=== PATIENT | female | born 1945 | race Caucasian/White ===

== ENCOUNTER 2018-04-07 14:26 | Inpatient (IN) | payer MEDICARE ==
--- NOTE | 2018-04-07 14:59 | ED ---
Neurological HPI - HPI Summary HPI Summary: This patient is a 72 year old female presenting to [facility] accompanied by her son c/o AMS for the last day and a half. The patient was at her PCPs office today when the physician noticed she was repetitive she suggested she come to the ED. Pt states she fell on December and hit her head, she had a negative work up directly after this. When she is asked what her sx are she is unsure even after extensive questioning. When asked the president she is unsure, when asked the month she states the president, although the patient is oriented to herself. Her son who is with her states she has been repeating herself intermittently since yesterday. - History of Current Complaint Chief Complaint: EDAltMentalStatus Stated Complaint: DIZZINESS/CONFUSION Time Seen by Provider: 04/07/18 14:44 Hx Obtained From: Patient, Family/Solution Design And Analysis Manager Onset/Duration: Started days ago - 1, Still Present Timing: Constant Onset Severity: Moderate Current Severity: Moderate Pain Intensity: 0 Pain Scale Used: 0-10 Numeric Syncope Context: Loss of Consciousness: No Associated Signs and Symptoms: Positive: Negative - fever - Allergy/Home Medications Allergies/Adverse Reactions: Allergies Allergy/AdvReac Type Severity Reaction Status Date / Time paroxetine [From Paxil] Allergy Unknown Verified 04/07/18 14:30 Reaction Details Home Medications: Home Medications Albuterol HFA INHALER* [Ventolin HFA Inhaler*] 2 puff INH Q4H PRN 04/07/18 [ History Confirmed 04/07/18] Atorvastatin* [Lipitor*] 20 mg PO BEDTIME 04/07/18 [History Confirmed 04/07/18] Budesonide/Formote 80/4.5(NF) [Symbicort 80/4.5 (NF)] 2 puff INH BID 04/07/18 [ History Confirmed 04/07/18] Ibuprofen TAB* [Advil TAB*] 200 mg PO Q6H PRN 04/07/18 [History Confirmed ] Insulin Glargine,Hum.rec.anlog [Lantus Solostar] 15 units SUBCUT DAILY 04/07/18 [History Confirmed 04/07/18] Ondansetron TAB* [Zofran 4 MG Tab*] 4 - 8 mg PO BID PRN 04/07/18 [History Confirmed 04/07/18] diPHENhydraMINE PO* [Benadryl PO 25 MG TAB*] 25 mg PO BEDTIME 04/07/18 [History Confirmed 04/07/18] metFORMIN* [Glucophage 500 MG TAB *] 1,000 mg PO QAM 04/07/18 [History Confirmed 04/07/18] metFORMIN* [Glucophage 500 MG TAB *] 500 mg PO QPM 04/07/18 [History Confirmed 04/07/18] PMH/Surg Hx/FS Hx/Imm Hx Infectious Disease History: No Infectious Disease History: Denies: Traveled Outside the [place] in Last 30 Days Review of Systems Negative: Fever Neurological: Other - AMS and repeating words All Other Systems Reviewed And Are Negative: Yes Physical Exam - Summary Physical Exam Summary: VITAL SIGNS: Reviewed. GENERAL: Patient is a well-developed and nourished FEMALE who is lying comfortable in the stretcher. Patient is not in any acute respiratory distress. HEAD AND FACE: No signs of trauma. No ecchymosis, hematomas or skull depressions. No sinus tenderness. EYES: PERRLA, EOMI x 2, No injected conjunctiva, no nystagmus. No photophobia. EARS: Hearing grossly intact. Ear canals and tympanic membranes are within normal limits. MOUTH: Oropharynx within normal limits. NECK: Supple, trachea is midline, no adenopathy, no JVD, no carotid bruit, no c- spine tenderness, neck with full ROM. No meningeal signs, no Kernig's or brudzinskis signs. CHEST: Symmetric, no tenderness at palpation LUNGS: Clear to auscultation bilaterally. No wheezing or crackles. CVS: Regular rate and rhythm, S1 and S2 present, no murmurs or gallops appreciated. ABDOMEN: Soft, non-tender. No signs of distention. No rebound no guarding, and no masses palpated. Bowel sounds are normal. EXTREMITIES: FROM in all major joints, no edema, no cyanosis or clubbing. NEURO: Alert abut not oriented. No acute neurological deficits. Speech is normal and follows commands. SKIN: Dry and warm Triage Information Reviewed: Yes Vital Signs On Initial Exam: Initial Vitals Temp Pulse Resp BP Pulse Ox 97.9 F 71 16 161/84 97 04/07/18 14:29 04/07/18 14:29 04/07/18 14:29 04/07/18 14:29 04/07/18 14:29 Vital Signs Reviewed: Yes - Nelia Coma Scale Best Eye Response: 4 - Spontaneous Best Motor Response: 6 - Obeys Commands Best Verbal Response: 5 - Oriented Coma Scale Total: 15 Diagnostics - Vital Signs Vital Signs Temp Pulse Resp BP Pulse Ox 04/07/18 14:29 97.9 F 71 16 161/84 97 - Laboratory Result Diagrams: 04/08/18 06:40 04/08/18 06:40 Lab Statement: Any lab studies that have been ordered have been reviewed, and results considered in the medical decision making process. - CT CT Head CT Interpretation Completed By: Radiologist Summary of CT Findings: , Large left-sided chronic subdural hematoma with superimposed acute component. Findings discussed with Dr. Leon at 1512 hours. ED physician has reviewed this report. CT C spine CT Interpretation Completed By: Radiologist Summary of CT Findings: No fracture of the cervical spine is noted. There is degenerative disc disease at C4-C5, C5-C6 and C6-C7. . Dr Leon has reviewed this report. - EKG 1550 Cardiac Rate: NL EKG Rhythm: Sinus Rhythm - at 70 BPM Summary of EKG Findings: no st elevations NIH Scale - NIH Scale Level of Consciousness: Alert/Keenly Responsive Ask Patient the Month and His/Her Age: One Correct/Not Aphasic Ask Pt to Open/Close Eyes and Telesales Supervisor/Release Non-Paretic Hand: Both Correctly Best Gaze (Only Horizontal Eye Movement): Normal Visual Field Testing: No Visual Loss Facial Paresis-Pt to Smile & Close Eyes or Grimace Symmetry: Normal/Symmetrical Motor Function - Right Arm: No Drift-Holds 10 Seconds Motor Function - Left Arm: No Drift-Holds 10 Seconds Motor Function - Right Leg: No Drift-Holds 10 Seconds Motor Function - Left Leg: No Drift-Holds 10 Seconds Limb Ataxia-Must be out of Proportion to Weakness Present: Absent Sensory (Use Pinprick to Test Arms/Legs/Trunk/Face): Normal Best Language (Describe Picture, Name Items): No Aphasia Dysarthria (Read Several Words): Normal Extinction and Inattention: No Abnormality Total Score: 1 Course/Dx - Course Assessment/Plan: Test results without any significant abnormality except for glucose of 213. Head CT impression: Large left-sided chronic subdural hematoma with superimposed acute component. C-spine CT impression: No fracture of the cervical spine is noted. There is degenerative disc disease and C4-C5, C5-C6, and C6-C7. At this point the patient was given IV fluids and she was given Keppra for prevention of seizures. I discussed my physical exam and findings with Dr. Herrera from neurosurgery who came and examined the patient. After his assessment he will be taking the patient to the OR for decompression. At this point the patient is hemodynamically stable alert and oriented 3. - Diagnoses Provider Diagnoses: Hemorrhagic cerebrovascular accident (CVA) - Physician Notifications Discussed Care Of Patient With: Melia Vee Time Discussed With Above Provider: 15:16 Instructed by Provider To: Admit As Inpatient - 1516 I discussed patient care with Serena OVERHEAD GARAGE DOOR HANGER working with Dr Vee and she will come see the patient. 1531 Dr Vee and Serena are at beside. 1623: They will admit the patient. - Critical Care Time Critical Care Time: 30-74 min Discharge - Sign-Out/Discharge Documenting (check all that apply): Patient Departure - admitted All imaging exams completed and their final reports reviewed: Yes Patient Received Moderate/Deep Sedation with Procedure: No - Discharge Plan Condition: Fair Disposition: ADMITTED TO [facility] - Billing Disposition and Condition Condition: FAIR Disposition: Admitted to [facility] - Attestation Statements Document Initiated by Madiha: Yes Documenting Scribe: Flaco Hatfield Provider For Whom Madiha is Documenting (Include Credential): Miguel Leon MD Scribe Attestation: IFlaco , scribed for Miguel Leon MD on 04/08/18 at 2053. Scribe Documentation Reviewed: Yes Provider Attestation: The documentation as recorded by the Flaco quinones accurately reflects the service I personally performed and the decisions made by me, Miguel Leon MD Status of Scribe Document: Viewed
--- OUTSIDE RECORDS SUMMARY | 2018-04-07 15:00 | XMS REPORT ---
:1945 Author Organization [facility] Dental Care Team Providers Name Role Phone Caitlyn Chino Unavailable Unavailable PROBLEMS Unknown Problems ALLERGIES No Known Allergies ENCOUNTERS Encounter Location Date Diagnosis [place] [address] [place] [address] Aug, [address] [address] Mar, [address] [address] 17 Mar, 2018 [place] [address] [address] 16 Aug, [address] [address] 16 Aug, [address] [address] Jul, [address] 04 Jul, 2017 [address] [address] 15 Mar, [address] [address] 15 Mar, [address] [address] Aug, [address] [address] Aug, [address] [address] Mar, [place] [address] [address] Mar, [address] [address] Aug, [address] [address] Aug, IMMUNIZATIONS No Known Immunizations SOCIAL HISTORY Never Assessed REASON FOR REFERRAL FUNCTIONAL STATUS PLAN OF CARE Activity Details Follow Up 6 Months Reason: VITAL SIGNS MEDICATIONS Medication Instructions Dosage Frequency Start Date End Date Duration Status Lipitor Active Metformin HCl Active Symbicort Active Lantus Active PROCEDURES Procedure Date Ordered Result Body Site BITEWINGS - FOUR FILMS Mar 17, 2018 PROPHYLAXIS - ADULT 13yrs and older Mar 17, 2018 Caries Risk Assess and Doc Low Risk Mar 17, 2018 RESULTS No Results REASON FOR VISIT cleaning Insurance Providers [facility] Member Patient Patient Patient Patient Patient Subscriber Subscriber Subscriber Group Insurance Plan Plan Plan Plan ID Relationship Address Phone Name Date of ID Name Date of No Type Insurance Insurance Insurance Coverage to Subscriber Address Phone Name Dates [employer] [phone] [employer] self Richelle [id number] [id number] [place] [address] [employer] [phone] [employer] self Richelle [id number] [employer] [place] [address] [place] [address] Dental Par MEDICAL (GENERAL) HISTORY Type Description Date Medical History diabetes mallitus Medical History asthma Medical History high cholesterol
--- OUTSIDE RECORDS SUMMARY | 2018-04-07 15:00 | XMS REPORT ---
:1945 Author Organization [facility] Care Team Providers Name Role Phone Brodie Reddy Unavailable Unavailable PROBLEMS Unknown Problems ALLERGIES No Information ENCOUNTERS Encounter Location Date Diagnosis [place] [address] [address] [facility] [place] [address] Aug, [place] [address] [address] Mar, [address] [address] 17 Mar, [address] [address] [place] [address] 16 Aug, [address] [place] [address] [address] 16 Aug, [address] [address] 18 Jul, [address] 04 Jul, 2017 [address] [address] 15 Mar, [address] [address] 15 Mar, [address] [address] 13 Aug, [address] [address] Aug, [address] [address] Mar, [place] [address] [address] 09 Mar, [address] [address] Aug, [address] [address] Aug, IMMUNIZATIONS No Known Immunizations SOCIAL HISTORY Never Assessed REASON FOR REFERRAL FUNCTIONAL STATUS PLAN OF CARE VITAL SIGNS MEDICATIONS Medication Instructions Dosage Frequency Start Date End Date Duration Status Lantus Active Metformin HCl Active Symbicort Active PROCEDURES Procedure Date Ordered Result Body Site PERIODIC ORAL EXAMINATION Mar 17, 2018 RESULTS No Results REASON FOR VISIT Insurance Providers [facility] Member Patient Patient Patient Patient Patient Subscriber Subscriber Subscriber Group Insurance Plan Plan Plan Plan ID Relationship Address Phone Name Date of ID Name Date of No Type Insurance Insurance Insurance Coverage to Subscriber Address Phone Name Dates [employer] [phone] [employer] self Richelle [id number] [id number] [place] [address] [employer] [phone] [employer] self Richelle [id number] [employer] [place] [address] [place] [address] Dental Par MEDICAL (GENERAL) HISTORY Type Description Date Medical History diabetes mallitus Medical History asthma Medical History high cholesterol
[2018-04-07] MEDS ORDERED: Lidocaine 1% MPF wEPI 200,000* 30 ML SDV ONE (15:53)
[2018-04-07] MEDS ORDERED: Mannitol 25% (12.5 GM) 50 ML* 12.5 GM/50 ML VIAL ONE (15:54)
[2018-04-07] MEDS ORDERED: Thrombin 5,000 UNITS* 1 APPLIC KIT - topical use - TOPICAL ONE (15:54)
[2018-04-07] MEDS ORDERED: Gelfoam Sponge SIZE 100* SPONGE ONE (15:55)
[2018-04-07] MEDS ORDERED: Bacitracin INJECTION* 50,000 UNITS ONE ×2 (15:55→19:10)
[2018-04-07 16:03] LABS: ABS Basophils 0 10^3/ul (0-0.2); ABS Eosinophils 0.4 10^3/ul (0-0.6); ABS Lymphocytes 1.5 10^3/ul (1.0-4.8); ABS Monocytes 0.3 10^3/ul (0-0.8); ABS Nucleated RBC 0 10^3/ul; Eosinophil % 5.9 %; Hematocrit 40 % (35-47); Hemoglobin 13.3 g/dl (12.0-16.0); Mean Corpuscular HGB Conc 34 g/dl (31-36); Mean Corpuscular Hemoglobin 30 pg (27-31); Mean Corpuscular Volume 89 fL (80-97); Mean Platelet Volume 8.3 fL (7.4-10.4); Nucleated Red Blood Cells % 0.1; Platelet Count 235 10^3/ul (150-450); Red Blood Count 4.47 10^6/ul (4.00-5.40); Red Cell Distribution Width 13 % (10.5-15); White Blood Count 6.3 10^3/ul (3.5-10.8)
[2018-04-07] MEDS ORDERED: fentaNYL* 50 MCG/ML 5 ML VIAL (250 MCG VIAL) ONE (16:04)
[2018-04-07 16:11] LABS: Activated Partial Thrombo Time 28.1 seconds (26.0-36.3); INR 0.98 (0.77-1.02)
[2018-04-07] MEDS ORDERED: EPHEDrine (Pressors)* 50 MG/ML VIAL ONE (16:27)
[2018-04-07] MEDS ORDERED: Phenylephrine 10 MG/ML VIAL* 1 ML VIAL ONE (16:27)
[2018-04-07 16:36] LABS: ALT 13 U/L (7-52); AST 18 U/L (13-39); Albumin 4.4 g/dL (3.2-5.2); Alkaline Phosphatase 88 U/L (34-104); Anion Gap 9 mmol/L (2-11); BUN/Creatinine Ratio 20.5 (8-20); Blood Urea Nitrogen 15 mg/dL (6-24); CO2 Carbon Dioxide 26 mmol/L (22-32); Calcium 9.5 mg/dL (8.6-10.3); Chloride 100 mmol/L (101-111); Cholesterol 138 mg/dL; EGFR African American 95.4 (>60); EGFR Non-African American 78.8 (>60); Globulin 2.2 g/dL (2-4); Glucose 213 mg/dL (70-100); HDL Cholesterol 59.1 mg/dL; LDL Cholesterol 64 mg/dL; Potassium 4.1 mmol/L (3.5-5.0); Sodium 135 mmol/L (135-145); Total Protein 6.6 g/dL (6.4-8.9); Triglycerides 73 mg/dL
[2018-04-07] MEDS: levETIRAcetam IV* 1,000 MG in NS 0.9% 100 ML* 100 ML IVPB SCH ×2 (16:41→16:52)
[2018-04-07] MEDS ORDERED: Sodium Citrate/Citric Acid* 15 ML UDC ONE (16:43)
[2018-04-07 16:50] LABS: Alcohol < 10 mg/dL (<10)
[2018-04-07] MEDS ORDERED: ceFAZolin 2 GM PREMIX in ORs 2 GM/50 ML BAG IVPB ONE (16:54)
[2018-04-07] MEDS ORDERED: Rocuronium* 10 MG/ML VIAL ONE (17:40)
[2018-04-07] MEDS ORDERED: Succinylcholine* 20 MG/ML 10 ML VIAL ONE (17:58)
[2018-04-07] MEDS ORDERED: Esmolol* 10 MG/ML 10 ML (100 mg) ONE (17:58)
[2018-04-07] MEDS ORDERED: Propofol* 10 MG/ML 20 ML BTL ONE (17:58)
[2018-04-07] MEDS ORDERED: Lidocaine 2% PF * 5 ML VIAL ONE (17:59)
[2018-04-07] MEDS ORDERED: fentaNYL* 50 MCG/ML 2 ML VIAL (100 MCG VIAL) ONE ×3 (18:12→20:39)
[2018-04-07] MEDS ORDERED: Metoprolol Tartrate IV* 1 MG/ML 5 ML VIAL ONE (18:14)
[2018-04-07] MEDS ORDERED: Midazolam* 1 MG/ML 5 ML VIAL (5 MG) ONE (19:30)
--- NOTE | 2018-04-07 20:09 | CONS ---
CONSULTATION NOTE: DATE OF CONSULT: 04/07/18 HISTORY OF PRESENT ILLNESS: The patient is a very pleasant 72-year-old right- handed female with history of diabetes, who was seen in the emergency room for altered mental status for the last 1-1/2 days. The patient was seen at her PCPs office and because of altered mental status, she was instructed to come to the emergency room. The patient reportedly had sustained a fall and [place] She fell facing forward. No loss of consciousness at that time or loss of memory. The patient reports that she has no headaches. She has no nausea, vomiting. Has no difficulty with vision, with hearing. She has no seizures. She denies any weakness, numbness, or tingling of her extremities. She reports that she was able to ambulate. The patient is slightly confused and she is accompanied today by her son, who also had history of closed-head injury and had surgery several years ago. PAST MEDICAL HISTORY: Diabetes. PAST SURGICAL HISTORY: Unknown. HOME MEDICATIONS: The patient is on: 1. Albuterol. 2. Atorvastatin. 3. Budesonide. 4. Ibuprofen. 5. Insulin. 6. Ondansetron. 7. Diphenhydramine. 8. Metformin. ALLERGIES: PAROXETINE. FAMILY HISTORY: Noncontributory. SOCIAL HISTORY: Tobacco, negative. Alcohol, negative. Recreational drug use, negative. PHYSICAL EXAM: The patient is not in acute distress. She is awake, alert. She is oriented x1. Her pupils are equal and reactive. Cranial nerves II through XII are grossly intact. Motor: 4-5/5 in all extremities with the exception of her right side that has mild weakness 4-/5. The patient does have mild right pronator drift. The patient has perseveration and her sensation is grossly intact. Deep tendon reflexes +1 bilaterally. Straight leg raise test negative in supine position. No pain on palpation of the thoracic or lumbar spine. She has free range of motion of the cervical spine. The patient denies any neck or back pain. No Diego's. No Babinski. Clonus negative. DIAGNOSTIC STUDIES: The patient had a CT of the brain that revealed large left isodense subdural hematoma with acute component with significant midline shift. The patient also had a CT scan of the cervical spine that revealed disk disease without evidence of fracture or subluxation. ASSESSMENT: This is a very pleasant 72-year-old right-handed female with altered mental status, dysphagia and right hemiparesis with large left subdural hematoma. PLAN: The patient at this point is symptomatic from her subdural hematoma. Based on her clinical presentation and the mass effect present on the CT scan of the brain, the patient was offered the option of surgical intervention. After explaining all different treatment options, the patient and her son understood what are the expectations, limitations and possible complications of the procedure with complications include, but not limited to bleeding, infection, risk of injury to adjacent structures, coma, paralysis, , need for additional procedures, anesthesia risks, stroke, blindness, cancer, instability, spinal fluid leak, hydrocephalus, recurrent subdural hematoma, prolonged ICU stay, need for tracheostomy or gastrostomy; the patient and her son were agreeable to proceed with surgery. Informed consent was obtained by the patient's son. The patient will also get an emergency two-physician consent due to the history of the son's closed- head injury. The patient and her son understood that her condition may not improve and in fact may get worse after surgery and that she may need to have additional procedures in the future. They also understood that the plan may be modified according to the intraoperative findings and conditions and that the case may be abandoned or done in more than 1 stages and that the subdural hematoma may recur, persist, or result to deterioration of her clinical condition even .Patient will be operated as an emergency case. Keagan Vee MD [id number]/[facility] #: [id number] SANTO
[2018-04-07] MEDS ORDERED: Ondansetron INJ* 2 MG/ML VIAL IV PRN (21:37)
[2018-04-07] MEDS: niCARdipine 0.1MG/ML IVPREMIX* 20 MG/200 ML BAG IV SCH (22:06)
[2018-04-07] MEDS ORDERED: niCARdipine 0.1MG/ML IVPREMIX* 20 MG/200 ML BAG IV ONE (22:06)
[2018-04-07] MEDS ORDERED: Dextrose 50% Syringe 50 ML* 25 GM/50 ML SYRINGE IV PUSH PRN (22:17)
[2018-04-07] MEDS ORDERED: Albuterol 2.5 MG/3 ML NEB.SOL* (0.083%) INH PRN (22:18)
[2018-04-07] MEDS ORDERED: Propofol* 100 ML ONE (22:22)
[2018-04-07] MEDS ORDERED: Insulin GLARGINE(*) 1 UNITS UNIT SUBCUT SCH (23:00)
[2018-04-07] MEDS ORDERED: Propofol* 100 ML IV SCH (23:00)
[2018-04-07] MEDS: Lactated Ringers 1000 ML Bag* 1,000 ML IV SCH (23:00)
[2018-04-08] MEDS: Insulin LISPRO* 1 UNITS UNIT SUBCUT SCH ×5 (01:14→23:54)
[2018-04-08] MEDS: niCARdipine 0.1MG/ML IVPREMIX* 20 MG/200 ML BAG IV SCH ×11 (02:08→22:47)
[2018-04-08] MEDS: levETIRAcetam 500 MG IVPREMIX* 500 MG/100 ML BAG IV SCH ×2 (05:32→17:15)
[2018-04-08] MEDS: Morphine 4 MG/ML VIAL (1 ml) 4 MG/ML VIAL IV PRN ×5 (05:47→23:00)
[2018-04-08 07:00] LABS: Hematocrit 38 % (35-47); Hemoglobin 12.5 g/dl (12.0-16.0); Mean Corpuscular HGB Conc 33 g/dl (31-36); Mean Corpuscular Hemoglobin 29 pg (27-31); Mean Corpuscular Volume 90 fL (80-97); Mean Platelet Volume 8.6 fL (7.4-10.4); Platelet Count 245 10^3/ul (150-450); Red Blood Count 4.26 10^6/ul (4.00-5.40); Red Cell Distribution Width 13 % (10.5-15); White Blood Count 12.5 10^3/ul (3.5-10.8)
[2018-04-08 07:08] LABS: Albumin 3.7 g/dL (3.2-5.2); Albumin/Globulin Ratio 1.8 (1-3); BUN/Creatinine Ratio 18.8 (8-20); Calcium 8.7 mg/dL (8.6-10.3); EGFR African American 101.8 (>60); EGFR Non-African American 84.1 (>60); Globulin 2.1 g/dL (2-4); Indirect Bilirubin 0.4 mg/dL (0.3-1.0); Potassium 4.4 mmol/L (3.5-5.0); Total Bilirubin 0.5 mg/dL (0.2-1.0); Total Protein 5.8 g/dL (6.4-8.9)
[2018-04-08 07:56] LABS: TSH (Thyroid Stimulating Horm) 0.77 mcIU/mL (0.34-5.60)
[2018-04-08] MEDS ORDERED: Insulin GLARGINE(*) 1 UNITS UNIT SUBCUT SCH (09:03)
--- NOTE | 2018-04-08 11:21 | PN ---
Progress Note - Progress Note Date of Service: 04/08/18 SOAP: Subjective: []No events ON. Tolerated procedure well yesterday. In ICU. Patient was kept intubated ON at the recommendation of Dr Li. Initial difficulty with BP control. Patient was examined postop and was able to open eyes to verbal and follow commands with all extremities, without focal weakness. Received extra propofol this am for CT. Objective: []VSS, Afebrile. Wound s,c,d. Drains output noted. Subdural drain was pulled a few mm. Opens eyes to pain, (I), JOCELINE, face symmetric Motor: Jonathan briskly, No focal weakness. After serial exams patient was able to follow commands consistently. Sensory: grimaces to pain Assessment: []72 yof POD#1 Left craniotomy for SDH Plan: []Monitor VS, Neurochecks Wean from vent this am BP control, goal SBP 140-160 Keppra for [address] IN am. Keep drains. Monitor output. CT revealed significant improvement in midline shift, mass effect. Possible persistent SDH vs mixed subdural collection. Discussed with family regarding plan in extend. May consider revision of craniotomy in the future if needed. Discussed with Dr Hermosillo. I appreciate ICU care. Transfer service to DR Hermosillo today. Keagan Vee MD
--- NOTE | 2018-04-08 13:40 | CONSULT ---
Consult Consult: Consultation Note -- Critical Care Requesting Physician: Dr Vee Reason for consult: vent management, medical management Limitations in history/physical: intubated Date of consult: 04/08/2018 HPI: 72y F w/pmhx of DM, Asthma, HLD; comes to ER for slurry speech and abnormal speech as per familyi for a few days. 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 She went to ER after , had multiple stitches placed to left head. Since then she was fine but past few days had more confusion with words, repeating words unnecessarily, no falls or loss of balance, some increased slurry speech past 1 day. Brought to ER, CT brain demonstrated large Left subdural with acute on chronic bleeding, midline shift+. Neurosurgery called, she was taken to the OR for Left craniotomy for SDH. She tolerated proceudre well, left intubated overnight. She remained intubated overnight. stable. on cardene for BP control, on propofol for sedation. on NS infusion. Making urine. This morning sedation was turned down, she was evaluated and following commands. CT brain done in AM demonstrated residual blood in place with drains+. Neurosurg aware. She was placed on CPAP at bedside, I evaluated her and she was extubated to [place]; currently in bed, no distress. 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 Allergies: Allergies Allergy/AdvReac Type Severity Reaction Status Date / Time paroxetine [From Paxil] Allergy Unknown Verified 04/07/18 14:30 Reaction Details Home Medications: Albuterol HFA INHALER* [Ventolin HFA Inhaler*] 2 puff INH Q4H PRN 04/07/18 [ History Confirmed 04/07/18] Atorvastatin* [Lipitor*] 20 mg PO BEDTIME 04/07/18 [History Confirmed 04/07/18] Budesonide/Formote 80/4.5(NF) [Symbicort 80/4.5 (NF)] 2 puff INH BID 04/07/18 [ History Confirmed 04/07/18] Ibuprofen TAB* [Advil TAB*] 200 mg PO Q6H PRN 04/07/18 [History Confirmed ] Insulin Glargine,Hum.rec.anlog [Lantus Solostar] 15 units SUBCUT DAILY 04/07/18 [History Confirmed 04/07/18] Ondansetron TAB* [Zofran 4 MG Tab*] 4 - 8 mg PO BID PRN 04/07/18 [History Confirmed 04/07/18] diPHENhydraMINE PO* [Benadryl PO 25 MG TAB*] 25 mg PO BEDTIME 04/07/18 [History Confirmed 04/07/18] metFORMIN* [Glucophage 500 MG TAB *] 1,000 mg PO QAM 04/07/18 [History Confirmed 04/07/18] metFORMIN* [Glucophage 500 MG TAB *] 500 mg PO QPM 04/07/18 [History Confirmed 04/07/18] Tele: NSR Vitals: Vital Signs Temp 98.1 F 04/08/18 07:42 Pulse 93 04/08/18 11:01 Resp 21 04/08/18 11:05 BP 119/55 04/08/18 11:00 Pulse Ox 91 04/08/18 11:01 Intake & Output 04/07/18 04/08/18 04/08/18 18:59 06:59 18:59 Intake Total 3492 Output Total 2505 210 Balance 987 -210 Weight 62.596 kg 60.328 kg Intake: IV Fluids 2519 KEPPRA 94 LR 325 OR IVF 2100 Medicated IV 973 CC - Nicarpidine/Cardene 897 CC - Propofol/Diprivan 76 Output: CARLOS #1 345 40 Cranial Drain 40 Simmons 2020 170 Estimated Blood Loss 100 O2/Vent: NC Infusions: cardene Current Medications: Acetaminophen (Tylenol Tab*) 650 mg PO Q4H PRN PRN Reason: PAIN Hydrocodone Bitart/Acetaminophen ([place] 5-325 Tab*) 1 tab PO Q4H PRN PRN Reason: moderate pain Hydrocodone Bitart/Acetaminophen ([place] 5-325 Tab*) 2 tab PO Q4H PRN PRN Reason: marked pain Albuterol (Ventolin 2.5 Mg/3 Ml Neb.Lilly*) 2.5 mg INH Q4H PRN PRN Reason: SOB/WHEEZING Atorvastatin Calcium (Lipitor*) 20 mg PO BEDTIME [facility] Dextrose (D50w Syringe 50 Ml*) 12.5 gm IV PUSH .FOR FS < 60 - SS PRN PRN Reason: FS < 60 Levetiracetam (Keppra Iv Premix*) 500 mg in 100 mls @ 400 mls/hr IV Q12H [facility] Stop: 04/14/18 04:59 Last Admin: 04/08/18 05:32 Dose: 400 mls/hr Lactated Ringer's (Lactated Ringers 1000 Ml Bag*) 1,000 mls @ 55 mls/hr IV .per rate [facility] Last Admin: 04/07/18 23:00 Dose: 55 mls/hr Nicardipine/Sodium Chloride (Cardene 0.1mg/Ml Ivpremix*) 20 mg in 200 mls @ 30 mls/hr IV .(as Initial Rate) [facility]; Protocol Last Admin: 04/08/18 13:01 Dose: 30 mls/hr Propofol (Diprivan*) 100 mls @ 3.756 mls/hr IV .(Initial Rate) [facility]; Protocol Last Admin: 04/07/18 22:55 Dose: 5.7 mls/hr Insulin Glargine (Lantus(*)) 10 units SUBCUT Q24H [facility] Last Admin: 04/08/18 09:34 Dose: 10 units Insulin Human Lispro (Humalog*) 0 units SUBCUT FS Q6 ICU [facility]; Protocol Last Admin: 04/08/18 12:03 Dose: 3 units Morphine Sulfate (Morphine Vial*) 1 mg IV Q1H PRN PRN Reason: PAIN Last Admin: 04/08/18 11:05 Dose: 1 mg Ondansetron HCl (Zofran Inj*) 4 mg IV Q6H PRN PRN Reason: NAUSEA/VOMITING Last Admin: 04/08/18 12:10 Dose: 4 mg Physical Exam: General: was intubated, sedated; now semi-alert, sleepy but follows all commands , no distress Head: left craniotomy with drains+, dressing+ HEENT: no pallor, no icterus, moist mucous membranes Neck: soft, supple, no jvd, no stridor CVS: normal rate, regular, no murmur Resp: bilateral air entry, no rhales/wheeze/rhonchi Abdomen: soft, nontender, nondistended, bowel sounds present Ext: pulses+, warm, no edema Skin: intact Neuro: awakens, oriented x1, follows all commands, 4-5/5 Right upper/LE, no facial droop Labs: Laboratory Results - last 24 hr 04/07/18 04/07/18 04/07/18 15:50 15:50 15:50 WBC 6.3 RBC 4.47 Hgb 13.3 Hct 40 MCV 89 MCH 30 MCHC 34 RDW 13 Plt Count 235 MPV 8.3 Neut % (Auto) 63.9 Lymph % (Auto) 24.0 Ballard % (Auto) 5.5 Eos % (Auto) 5.9 Baso % (Auto) 0.7 Absolute Neuts (auto) 4.0 Absolute Lymphs (auto) 1.5 Absolute Monos (auto) 0.3 Absolute Eos (auto) 0.4 Absolute Basos (auto) 0 Absolute Nucleated RBC 0 Nucleated RBC % 0.1 INR (Anticoag Therapy) 0.98 APTT 28.1 ABG pH ABG pCO2 ABG pO2 ABG HCO3 ABG O2 Saturation ABG Base Excess Sodium 135 Potassium 4.1 Chloride 100 L Carbon Dioxide 26 Anion Gap 9 BUN 15 Creatinine 0.73 Est GFR ( Amer) 95.4 Est GFR (Non-Af Amer) 78.8 BUN/Creatinine Ratio 20.5 H Glucose 213 H POC Glucose (mg/dL) Hemoglobin A1c Lactic Acid Calcium 9.5 Total Bilirubin 0.40 Direct Bilirubin Indirect Bilirubin AST 18 ALT 13 Alkaline Phosphatase 88 Troponin I 0.00 Total Protein 6.6 Albumin 4.4 Globulin 2.2 Albumin/Globulin Ratio 2.0 Triglycerides 73 Cholesterol 138 LDL Cholesterol 64 HDL Cholesterol 59.1 TSH Serum Alcohol < 10 Blood Type Antibody Screen 04/07/18 04/07/18 04/07/18 15:50 15:50 16:50 WBC RBC Hgb Hct MCV MCH MCHC RDW Plt Count MPV Neut % (Auto) Lymph % (Auto) Ballard % (Auto) Eos % (Auto) Baso % (Auto) Absolute Neuts (auto) Absolute Lymphs (auto) Absolute Monos (auto) Absolute Eos (auto) Absolute Basos (auto) Absolute Nucleated RBC Nucleated RBC % INR (Anticoag Therapy) APTT ABG pH ABG pCO2 ABG pO2 ABG HCO3 ABG O2 Saturation ABG Base Excess Sodium Potassium Chloride Carbon Dioxide Anion Gap BUN Creatinine Est GFR ( Amer) Est GFR (Non-Af Amer) BUN/Creatinine Ratio Glucose POC Glucose (mg/dL) 113 H Hemoglobin A1c Lactic Acid 1.9 Calcium Total Bilirubin Direct Bilirubin Indirect Bilirubin AST ALT Alkaline Phosphatase Troponin I Total Protein Albumin Globulin Albumin/Globulin Ratio Triglycerides Cholesterol LDL Cholesterol HDL Cholesterol TSH Serum Alcohol Blood Type B Positive Antibody Screen Negative 04/07/18 04/08/18 04/08/18 21:10 01:10 03:25 WBC RBC Hgb Hct MCV MCH MCHC RDW Plt Count MPV Neut % (Auto) Lymph % (Auto) Ballard % (Auto) Eos % (Auto) Baso % (Auto) Absolute Neuts (auto) Absolute Lymphs (auto) Absolute Monos (auto) Absolute Eos (auto) Absolute Basos (auto) Absolute Nucleated RBC Nucleated RBC % INR (Anticoag Therapy) APTT ABG pH ABG pCO2 ABG pO2 ABG HCO3 ABG O2 Saturation ABG Base Excess Sodium Potassium Chloride Carbon Dioxide Anion Gap BUN Creatinine Est GFR ( Amer) Est GFR (Non-Af Amer) BUN/Creatinine Ratio Glucose POC Glucose (mg/dL) 153 H 278 H Hemoglobin A1c Lactic Acid Calcium Total Bilirubin Direct Bilirubin Indirect Bilirubin AST ALT Alkaline Phosphatase Troponin I 0.00 Total Protein Albumin Globulin Albumin/Globulin Ratio Triglycerides Cholesterol LDL Cholesterol HDL Cholesterol TSH Serum Alcohol Blood Type Antibody Screen 04/08/18 04/08/18 04/08/18 06:40 06:40 06:40 WBC 12.5 H RBC 4.26 Hgb 12.5 Hct 38 MCV 90 MCH 29 MCHC 33 RDW 13 Plt Count 245 MPV 8.6 Neut % (Auto) Lymph % (Auto) Ballard % (Auto) Eos % (Auto) Baso % (Auto) Absolute Neuts (auto) Absolute Lymphs (auto) Absolute Monos (auto) Absolute Eos (auto) Absolute Basos (auto) Absolute Nucleated RBC Nucleated RBC % INR (Anticoag Therapy) APTT ABG pH ABG pCO2 ABG pO2 ABG HCO3 ABG O2 Saturation ABG Base Excess Sodium 136 Potassium 4.4 Chloride 104 Carbon Dioxide 23 Anion Gap 9 BUN 13 Creatinine 0.69 Est GFR ( Amer) 101.8 Est GFR (Non-Af Amer) 84.1 BUN/Creatinine Ratio 18.8 Glucose 310 H POC Glucose (mg/dL) Hemoglobin A1c 6.8 H Lactic Acid Calcium 8.7 Total Bilirubin 0.50 Direct Bilirubin 0.10 Indirect Bilirubin 0.4 AST 14 ALT 9 Alkaline Phosphatase 86 Troponin I 0.00 Total Protein 5.8 L Albumin 3.7 Globulin 2.1 Albumin/Globulin Ratio 1.8 Triglycerides Cholesterol LDL Cholesterol HDL Cholesterol TSH 0.77 Serum Alcohol Blood Type Antibody Screen 04/08/18 04/08/18 04/08/18 06:40 07:12 11:24 WBC RBC Hgb Hct MCV MCH MCHC RDW Plt Count MPV Neut % (Auto) Lymph % (Auto) Ballard % (Auto) Eos % (Auto) Baso % (Auto) Absolute Neuts (auto) Absolute Lymphs (auto) Absolute Monos (auto) Absolute Eos (auto) Absolute Basos (auto) Absolute Nucleated RBC Nucleated RBC % INR (Anticoag Therapy) APTT ABG pH 7.36 ABG pCO2 30 L ABG pO2 168 H ABG HCO3 19.3 ABG O2 Saturation 99.6 H ABG Base Excess -7.3 L Sodium Potassium Chloride Carbon Dioxide Anion Gap BUN Creatinine Est GFR ( Amer) Est GFR (Non-Af Amer) BUN/Creatinine Ratio Glucose POC Glucose (mg/dL) 316 H 284 H Hemoglobin A1c Lactic Acid Calcium Total Bilirubin Direct Bilirubin Indirect Bilirubin AST ALT Alkaline Phosphatase Troponin I Total Protein Albumin Globulin Albumin/Globulin Ratio Triglycerides Cholesterol LDL Cholesterol HDL Cholesterol TSH Serum Alcohol Blood Type Antibody Screen Imaging: CT brain 04/07 - left large SDH, acute on chronic with midline shift CT brain 04/08 - residual collection/blood in left frontal area, drains+, shift improved Assessment: 72y F w/pmhx of DM, Asthma, HLD; comes to ER for slurry speech and abnormal speech as per familyi for a few days. 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 She went to ER after , had multiple stitches placed to left head. Since then she was fine but past few days had more confusion with words, repeating words unnecessarily, no falls or loss of balance, some increased slurry speech past 1 day. Brought to ER, CT brain demonstrated large Left subdural with acute on chronic bleeding, midline shift+. Neurosurgery called, she was taken to the OR for Left craniotomy for SDH. She tolerated proceudre well, left intubated overnight. -Traumatic Left SDH with midline shift; s/p craniotomy 04/07 DM Asthma Plan: Neuro- neurochecks q1h. asp prec. -reviewed CT brain 04/08 -if neuro change, may need OR again -monitor CARLOS drainage -maintain SBP 140-150, on cardene now -Keppra for seizure proph -swallow eval once more awake -NPO CVS- maintain SBP 140-150, on cardene infusion. no IVF currently Resp- on NC, no distress. Bronchodilators PRN. ID- afebrile. wbc 12. not on Abx currently. GI- NPO. swallow eval once more awake. Renal- Cr okay. cont LR 55cc/hr. making urine. Heme- hg stable. monitor CARLOS outputs. plt okay. no AC. Endo- fingersticks q6h. cont lantus 15u qdaily. Insulin SS Musculsk- pressure ulcer prophylaxis. Bedrest. Wounds- none Nutrition- NPO DVT prophylaxis:SCD GI prophylaxis: h2b Central Line: no Arterial Line: right rad, nonfunctioning Simmons Cathetor: yes Disposition: Patient requires Critical Care/ICU for SDH/craniotomy Patient Clinical Status: critical Code Status: full code Total Critical Care time is 35 minutes, excluding procedures/teaching Jere Hermosillo MD Configuration Manager (Electronically Signed)
--- NOTE | 2018-04-08 17:40 | OP ---
DATE OF OPERATION: 04/07/18 - ROOM #ICU-12 DATE OF : 49 SURGEON: Melia Vee MD ANESTHESIA: General. PRE-OP DIAGNOSIS: Left chronic/acute subdural hematoma. POST-OP DIAGNOSIS: Left chronic/acute subdural hematoma. OPERATIVE PROCEDURE: The patient underwent left frontal temporoparietal craniotomy for evacuation of left subdural hematoma. ESTIMATED BLOOD LOSS: 100 cc. COMPLICATIONS: None. 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 The patient developed over the last few days altered mental status with difficulty with her speech and was sent from her PCP's office to the emergency room, where she was found to have a large left-sided subdural hematoma with severe midline shift with acute on chronic elements. The patient was offered the option of surgical intervention, and after talking to the patient and her son regarding the expectations, limitations, and possible complications of the procedure with complications include, but not limited to, bleeding, infection, risk of injury to adjacent structures, coma, paralysis, , anesthesia risks, stroke, blindness, cancer, reaccumulation of hematoma, need for additional procedures, prolonged ICU stay, inability to improve, seizure, anesthesia risks, the patient and her son were agreeable to proceed with surgery and informed consent was obtained. In addition, two-physician consent was obtained because of the emergency of the patient's surgery and the fact that no other family member was available. The patient and her son understood that her condition may not improve and in fact may get worse after surgery and that she may need to have additional procedures in the future and that there is possibility of recurrence or persistence of the subdural hematoma. They also understood that the procedure may be aborted or done in more than 1 stages and operative plan may be modified according to the intraoperative findings and conditions. DESCRIPTION OF PROCEDURE: The patient was brought to the operative room and was placed under general anesthesia by anesthesia team. She was positioned supine on the operative table and the left shoulder was elevated with a shoulder bump. The head was placed on gel donut head cleaning porter. Hair was removed with surgical clippers, and after appropriate surgical pause and patient identification, a reverse question yemi incision was marked on the skin based on the preoperative CT scan imaging. The skin was infiltrated with local anesthetic and a #10 surgical blade was used to incise the skin. Prior to skin incision, appropriate surgical pause and patient identification was performed. The incision was carried down through the periosteum with use of Bovie cautery, and Delvis clips were used to secure hemostasis at the skin edges. Bovie cautery was used to perform incision through the temporalis muscle and fascia, and the musculocutaneous flap was gently elevated and there was folded anteriorly over a sponge. The flap was secured in place with the use of hooks. High- speed drill was used to perform several ferdinand holes and high-speed craniotome was used to fashion a craniotomy over the expected position of left subdural hematoma in the greatest diameter. The bone flap was gently elevated, and after tenting the dura with 4-0 Nurolon, the dura was incised in a semi- curvilinear fashion. An opening was performed with a #15 surgical blade and Metzenbaum scissors. A large amount of acute and mixed component subdural hematoma was encountered while the underlying brain was found to be under severe tension with significant compression at the site of the prior subdural hematoma . After copious irrigation and confirmation of meticulous hemostasis, the pseudomembranes that were identified were gently divided with the use of bipolar cautery. After complete evacuation of the subdural hematoma, all aspects of the subdural space were gently inspected and no residual hematoma was found to be left in place. A #7 CARLOS drain was then placed in the subdural space and the dura was gently reapproximated with 4-0 Nurolon sutures. The bone flap was again repositioned, and after confirmation of meticulous hemostasis, copious irrigation, and meticulous inspection, the wound was closed over #7 CARLOS drain which was placed in the subgaleal space. 2-0 interrupted Vicryl sutures were used to approximate the temporalis fascia and muscle, while interrupted 2-0 Vicryl sutures were used to approximate the subcutaneous tissue. The skin was then approximated with mick. At the end of the procedure, all counts were reported to be correct. The patient remained hemodynamically stable throughout the case. The patient was transferred to the ICU intubated and in excellent condition at the suggestion of Anesthesia. [id number]/CPS #: [id number] SANTO
[2018-04-08] MEDS: Lactated Ringers 1000 ML Bag* 1,000 ML IV SCH (19:53)
[2018-04-08] MEDS: Atorvastatin* 20 MG TAB PO SCH (20:03)
[2018-04-09] MEDS: Morphine 4 MG/ML VIAL (1 ml) 4 MG/ML VIAL IV PRN ×4 (01:03→11:12)
[2018-04-09] MEDS: niCARdipine 0.1MG/ML IVPREMIX* 20 MG/200 ML BAG IV SCH ×5 (01:32→18:10)
[2018-04-09 04:37] LABS: Hematocrit 32 % (35-47); Hemoglobin 10.8 g/dl (12.0-16.0); Mean Corpuscular HGB Conc 34 g/dl (31-36); Mean Corpuscular Hemoglobin 30 pg (27-31); Mean Corpuscular Volume 88 fL (80-97); Mean Platelet Volume 8.5 fL (7.4-10.4); Platelet Count 225 10^3/ul (150-450); Red Blood Count 3.59 10^6/ul (4.00-5.40); Red Cell Distribution Width 13 % (10.5-15); White Blood Count 14.5 10^3/ul (3.5-10.8)
[2018-04-09 04:56] LABS: BUN/Creatinine Ratio 14.8 (8-20); Calcium 8.4 mg/dL (8.6-10.3); EGFR Non-African American 111.6 (>60); Potassium 4.1 mmol/L (3.5-5.0)
[2018-04-09] MEDS: levETIRAcetam 500 MG IVPREMIX* 500 MG/100 ML BAG IV SCH ×2 (05:32→18:10)
[2018-04-09] MEDS: Insulin LISPRO* 1 UNITS UNIT SUBCUT SCH ×4 (05:46→23:40)
[2018-04-09] MEDS ORDERED: Insulin GLARGINE(*) 1 UNITS UNIT SUBCUT SCH (08:00)
--- NOTE | 2018-04-09 11:58 | PN ---
Progress Note - Progress Note Date of Service: 04/09/18 SOAP: Subjective: [] POD # 2 Awake,alert C/O headache Feels miserable Family feels she is better this AM Objective: [] Minimal drainage from subdural drain Moves all ext well F/U CT shows acute SDH with some mass effect but no shift Assessment: [] Stable Plan: []Repeat CT, likely D/C drain in AM
[2018-04-09] MEDS: Famotidine IV* 10 MG/ML 2 ML (20 mg) IV SLOW PU SCH (12:37)
--- NOTE | 2018-04-09 12:57 | PN ---
Progress Note - Progress Note Date of Service: 04/09/18 Note: Progress Note -- Critical Care 24 hour events -extubated yesterday; awake, alert. follows all commands, no distress. no WRAY. no nausea/vom -afebrile overnight -2 L NC Tele: NSR Vitals: Vital Signs Temp 98.8 F 04/09/18 08:00 Pulse 97 04/09/18 11:31 Resp 20 04/09/18 11:31 BP 147/51 04/09/18 11:30 Pulse Ox 92 04/09/18 11:31 Intake & Output 04/08/18 04/09/18 04/09/18 18:59 06:59 18:59 Intake Total 1608 1868 Output Total 790 1002 355 Balance 818 866 -355 Weight 63.73 kg Intake: IV Fluids 554 695 LR 554 695 IVPB 203 KEPPRA 203 Medicated IV 1054 970 CC - Nicarpidine/Cardene 1054 970 Output: CARLOS #1 70 47 20 Simmons 720 955 335 O2/Vent: NC 2L Infusions: cardene, LR 55cc/hr Current Medications: Acetaminophen (Tylenol Tab*) 650 mg PO Q4H PRN PRN Reason: PAIN Hydrocodone Bitart/Acetaminophen ([place] 5-325 Tab*) 1 tab PO Q4H PRN PRN Reason: moderate pain Hydrocodone Bitart/Acetaminophen ([place] 5-325 Tab*) 2 tab PO Q4H PRN PRN Reason: marked pain Albuterol (Ventolin 2.5 Mg/3 Ml Neb.Lilly*) 2.5 mg INH Q4H PRN PRN Reason: SOB/WHEEZING Atorvastatin Calcium (Lipitor*) 20 mg PO BEDTIME [facility] Last Admin: 04/08/18 20:03 Dose: Not Given Dextrose (D50w Syringe 50 Ml*) 12.5 gm IV PUSH .FOR FS < 60 - SS PRN PRN Reason: FS < 60 Famotidine (Pepcid Iv*) 20 mg IV SLOW PU DAILY [facility] Last Admin: 04/09/18 12:37 Dose: 20 mg Levetiracetam (Keppra Iv Premix*) 500 mg in 100 mls @ 400 mls/hr IV Q12H [facility] Stop: 04/14/18 04:59 Last Admin: 04/09/18 05:32 Dose: 400 mls/hr Lactated Ringer's (Lactated Ringers 1000 Ml Bag*) 1,000 mls @ 55 mls/hr IV .per rate [facility] Last Admin: 04/08/18 19:53 Dose: 55 mls/hr Nicardipine/Sodium Chloride (Cardene 0.1mg/Ml Ivpremix*) 20 mg in 200 mls @ 30 mls/hr IV .(as Initial Rate) [facility]; Protocol Last Admin: 04/09/18 12:37 Dose: 40 mls/hr Insulin Glargine (Lantus(*)) 20 units SUBCUT Q24H [facility] Insulin Human Lispro (Humalog*) 0 units SUBCUT FS Q6 ICU [facility]; Protocol Last Admin: 04/09/18 12:12 Dose: 2 units Morphine Sulfate (Morphine Vial*) 2 mg IV Q1H PRN PRN Reason: PAIN Last Admin: 04/09/18 11:12 Dose: 2 mg Ondansetron HCl (Zofran Inj*) 4 mg IV Q6H PRN PRN Reason: NAUSEA/VOMITING Last Admin: 04/08/18 12:10 Dose: 4 mg Physical Exam: General: awake, more alert, follows all commands, no distress Head: left craniotomy with drains+, dressing+ HEENT: no pallor, no icterus, moist mucous membranes Neck: soft, supple, no jvd, no stridor CVS: tachy, regular, no murmur Resp: bilateral air entry, no rhales/wheeze/rhonchi Abdomen: soft, nontender, nondistended, bowel sounds present Ext: pulses+, warm, no edema Skin: intact Neuro: awake, oriented x3, follows all commands, 5/5 all ext, no facial droop, pupils reactive Labs: Laboratory Results - last 24 hr 04/08/18 04/08/18 04/09/18 18:03 23:50 04:25 WBC RBC Hgb Hct MCV MCH MCHC RDW Plt Count MPV Sodium 138 Potassium 4.1 Chloride 109 Carbon Dioxide 22 Anion Gap 7 BUN 8 Creatinine 0.54 Est GFR ( Amer) 135.0 Est GFR (Non-Af Amer) 111.6 BUN/Creatinine Ratio 14.8 Glucose 197 H POC Glucose (mg/dL) 259 H 200 H Calcium 8.4 L 04/09/18 04/09/18 04:25 05:42 WBC 14.5 H RBC 3.59 L Hgb 10.8 L Hct 32 L MCV 88 MCH 30 MCHC 34 RDW 13 Plt Count 225 MPV 8.5 Sodium Potassium Chloride Carbon Dioxide Anion Gap BUN Creatinine Est GFR ( Amer) Est GFR (Non-Af Amer) BUN/Creatinine Ratio Glucose POC Glucose (mg/dL) 228 H Calcium Imaging: CT brain 04/07 - left large SDH, acute on chronic with midline shift CT brain 04/08 - residual collection/blood in left frontal area, drains+, shift improved ct brain 04/09 - stable left frontal SDH, drains+, minimal shift as prior Assessment: 72y F w/pmhx of DM, Asthma, HLD; comes to ER for slurry speech and abnormal speech as per familyi for a few days. 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 She went to ER after , had multiple stitches placed to left head. Since then she was fine but past few days had more confusion with words, repeating words unnecessarily, no falls or loss of balance, some increased slurry speech past 1 day. Brought to ER, CT brain demonstrated large Left subdural with acute on chronic bleeding, midline shift+. Neurosurgery called, she was taken to the OR for Left craniotomy for SDH. She tolerated proceudre well, left intubated overnight. -Traumatic Left SDH with midline shift; s/p craniotomy 04/07 DM Asthma Plan: Neuro- neurochecks q2h. asp prec. -reviewed CT brain 04/09 -seems to be improved; no sig deficit appreciated -monitor CARLOS drainage -maintain SBP 140-150, on cardene , weaning down; start PO norvasc 5mg daily -Keppra for seizure proph -swallow eval, start clear liquid -neurosurg following -bedrest today -CT brain repeat tomorrow in AM CVS- maintain SBP 140-150, on cardene infusion. LR 55cc/hr. good urine output. start norvasc 5mg daily. Resp- on NC, no distress. Bronchodilators PRN. ID- afebrile. wbc 14. not on Abx currently. GI- swallow eval, can start clear liquid, diabetic. Renal- Cr okay. K okay. cont LR 55cc/hr. making urine. Heme- hg stable. monitor CARLOS outputs. plt okay. no AC. Endo- fingersticks q6h. BG still elevated ; incr lantus 20u qdaily. Insulin SS Musculsk- pressure ulcer prophylaxis. Bedrest. Wounds- none Nutrition- diabetic diet, clear liquid for now DVT prophylaxis:SCD GI prophylaxis: h2b Central Line: no Arterial Line: no Simmons Cathetor: yes Disposition: Patient requires Critical Care/ICU for SDH/craniotomy Patient Clinical Status: critical Code Status: full code Total Critical Care time is 35 minutes, excluding procedures/teaching Jere Hermosillo MD Ornamental Metalwork Designer (Electronically Signed)
[2018-04-09] MEDS: Lactated Ringers 1000 ML Bag* 1,000 ML IV SCH (14:29)
[2018-04-09] MEDS: amLODIPine TAB* 5 MG PO SCH (14:30)
[2018-04-09] MEDS: Acetaminophen TAB* 325 MG PO PRN (21:09)
[2018-04-09] MEDS: Atorvastatin* 20 MG TAB PO SCH (21:09)
[2018-04-10] MEDS: levETIRAcetam 500 MG IVPREMIX* 500 MG/100 ML BAG IV SCH ×2 (04:44→18:15)
[2018-04-10] MEDS: Morphine 4 MG/ML VIAL (1 ml) 4 MG/ML VIAL IV PRN (04:49)
[2018-04-10] MEDS: Insulin LISPRO* 1 UNITS UNIT SUBCUT SCH ×5 (06:32→23:47)
[2018-04-10] MEDS: Insulin GLARGINE(*) 1 UNITS UNIT SUBCUT SCH (09:06)
[2018-04-10] MEDS: amLODIPine TAB* 5 MG PO SCH (09:06)
[2018-04-10] MEDS: Famotidine IV* 10 MG/ML 2 ML (20 mg) IV SLOW PU SCH (09:06)
[2018-04-10] MEDS: Lactated Ringers 1000 ML Bag* 1,000 ML IV SCH (09:07)
[2018-04-10] MEDS: Acetaminophen TAB* 325 MG PO PRN (09:14)
[2018-04-10] MEDS ORDERED: amLODIPine TAB* 5 MG PO ONE (10:00)
[2018-04-10] MEDS: Enalapril TAB* 5 MG PO SCH (10:16)
--- NOTE | 2018-04-10 11:31 | PN ---
Progress Note - Progress Note Date of Service: 04/10/18 Note: Progress Note -- Critical Care 24 hour events -no events overnight -tmax 100.5 -awake, alert, no WRAY/n/v/blurry vision; moving all ext -able to take po -making 100-200cc/hr of urine so far overnight -cranial drains 350cc, phillip 42 Tele: NSR Vitals: Vital Signs Temp 99.6 F 04/10/18 08:14 Pulse 81 04/10/18 10:45 Resp 20 04/10/18 10:45 BP 153/62 04/10/18 10:30 Pulse Ox 93 04/10/18 10:45 Intake & Output 04/09/18 04/10/18 04/10/18 18:59 06:59 18:59 Intake Total 1022 1299 Output Total 728 1279 970 Balance 294 20 -970 Weight 64.274 kg Intake: IV Fluids 494 786 LR 494 786 IVPB 215 KEPPRA 215 Medicated IV 408 298 CC - Nicarpidine/Cardene 408 298 Oral 120 Output: PHILLIP #1 20 22 Cranial Drain 350 Simmons 708 1257 620 O2/Vent: NC 3L Infusions: cardene, LR 55cc/hr Current Medications: Acetaminophen (Tylenol Tab*) 650 mg PO Q4H PRN PRN Reason: PAIN Last Admin: 04/10/18 09:14 Dose: 650 mg Hydrocodone Bitart/Acetaminophen ([place] 5-325 Tab*) 1 tab PO Q4H PRN PRN Reason: moderate pain Hydrocodone Bitart/Acetaminophen ([place] 5-325 Tab*) 2 tab PO Q4H PRN PRN Reason: marked pain Albuterol (Ventolin 2.5 Mg/3 Ml Neb.Lilly*) 2.5 mg INH Q4H PRN PRN Reason: SOB/WHEEZING Amlodipine Besylate (Norvasc Tab*) 10 mg PO DAILY SAMANTHA Atorvastatin Calcium (Lipitor*) 20 mg PO BEDTIME [facility] Last Admin: 04/09/18 21:09 Dose: 20 mg Dextrose (D50w Syringe 50 Ml*) 12.5 gm IV PUSH .FOR FS < 60 - SS PRN PRN Reason: FS < 60 Enalapril Maleate (Vasotec Tab*) 5 mg PO DAILY [facility] Last Admin: 04/10/18 10:16 Dose: 5 mg Famotidine (Pepcid Tab*) 20 mg PO DAILY [facility] Levetiracetam (Keppra Iv Premix*) 500 mg in 100 mls @ 400 mls/hr IV Q12H [facility] Stop: 04/14/18 04:59 Last Admin: 04/10/18 04:44 Dose: 400 mls/hr Lactated Ringer's (Lactated Ringers 1000 Ml Bag*) 1,000 mls @ 55 mls/hr IV .per rate [facility] Last Admin: 04/10/18 09:07 Dose: 55 mls/hr Nicardipine/Sodium Chloride (Cardene 0.1mg/Ml Ivpremix*) 20 mg in 200 mls @ 30 mls/hr IV .(as Initial Rate) [facility]; Protocol Last Admin: 04/09/18 18:10 Dose: 40 mls/hr Insulin Glargine (Lantus(*)) 20 units SUBCUT Q24H SAMANTHA Last Admin: 04/10/18 09:06 Dose: 20 unit Insulin Human Lispro (Humalog*) 0 units SUBCUT FS Q6 ICU SAMANTHA; Protocol Last Admin: 04/10/18 06:32 Dose: 1 units Morphine Sulfate (Morphine Vial*) 2 mg IV Q1H PRN PRN Reason: PAIN Last Admin: 04/10/18 04:49 Dose: 2 mg Ondansetron HCl (Zofran Inj*) 4 mg IV Q6H PRN PRN Reason: NAUSEA/VOMITING Last Admin: 04/08/18 12:10 Dose: 4 mg Physical Exam: General: awake, alert, follows all commands, no distress Head: left craniotomy with drains+, dressing+ HEENT: no pallor, no icterus, moist mucous membranes Neck: soft, supple, no jvd, no stridor CVS: normal rate, regular, no murmur Resp: bilateral air entry, no rhales/wheeze/rhonchi Abdomen: soft, nontender, nondistended, bowel sounds present Ext: pulses+, warm, no edema Skin: intact Neuro: awake, oriented x3, follows all commands, 5/5 all ext, no facial droop, pupils reactive Labs: pending today Imaging: CT brain 04/07 - left large SDH, acute on chronic with midline shift CT brain 04/08 - residual collection/blood in left frontal area, drains+, shift improved ct brain 04/09 - stable left frontal SDH, drains+, minimal shift as prior ct brain 04/10 - no sig new change, stable, reviewed report Assessment: 72y F w/pmhx of DM, Asthma, HLD; comes to ER for slurry speech and abnormal speech as per familyi for a few days. 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 She went to ER after , had multiple stitches placed to left head. Since then she was fine but past few days had more confusion with words, repeating words unnecessarily, no falls or loss of balance, some increased slurry speech past 1 day. Brought to ER, CT brain demonstrated large Left subdural with acute on chronic bleeding, midline shift+. Neurosurgery called, she was taken to the OR for Left craniotomy for SDH. She tolerated proceudre well, left intubated overnight. -Traumatic Left SDH with midline shift; s/p craniotomy 04/07 DM Asthma Plan: Neuro- neurochecks q2h -asp prec. -reviewed CT brain 04/10 -seems to be improved; no sig deficit appreciated -monitor PHILLIP drainage -maintain SBP 140-150, on cardene , weaning down; inc PO norvasc 10mg daily, add enalapril 5mg carolyne -Keppra for seizure proph -clear liquid diet, advance as tolerated -neurosurg following -bedrest today, possible oob to chair? if okay with NS CVS- maintain SBP 140-150, on cardene infusion. LR 55cc/hr. large urine output now; may be DI central? pending labs, may need increase in IVF infusion to keep up. Increase norvasc 10mg daily, add enalapril 5mg daily. Resp- on NC, no distress. Bronchodilators PRN. ID- afebrile. not on Abx currently. GI- diabetic, mech soft diet to be advanced. GI proph. Renal- Pending labs. cont LR 55cc/hr. making large amounts of urine. no JOSE prior. Central DI is possible, very dilute. Heme- hg stable. monitor PHILLIP outputs. plt okay. no AC. Endo- fingersticks q6h. BG better ; lantus 20u qdaily. Insulin SS Musculsk- pressure ulcer prophylaxis. Bedrest. Wounds- wound care to craniotomy site Nutrition- diabetic diet, soft mechanical DVT prophylaxis:SCD GI prophylaxis: h2b Central Line: no Arterial Line: no Simmons Cathetor: yes Disposition: Patient requires Critical Care/ICU for SDH/craniotomy Patient Clinical Status: critical Code Status: full code Total Critical Care time is 30 minutes, excluding procedures/teaching Jere Hermosillo MD Technician Automatic (Electronically Signed)
[2018-04-10 11:53] LABS: Hematocrit 33 % (35-47); Hemoglobin 11.2 g/dl (12.0-16.0); Mean Corpuscular HGB Conc 34 g/dl (31-36); Mean Corpuscular Hemoglobin 30 pg (27-31); Mean Corpuscular Volume 89 fL (80-97); Mean Platelet Volume 8.4 fL (7.4-10.4); Platelet Count 190 10^3/ul (150-450); Red Blood Count 3.72 10^6/ul (4.00-5.40); Red Cell Distribution Width 13 % (10.5-15); White Blood Count 10.8 10^3/ul (3.5-10.8)
[2018-04-10 12:10] LABS: BUN/Creatinine Ratio 17.5 (8-20); Calcium 8.7 mg/dL (8.6-10.3); EGFR African American 126.9 (>60); EGFR Non-African American 104.9 (>60); Potassium 3.8 mmol/L (3.5-5.0)
[2018-04-10] MEDS: HYDROcodone/ACETAMIN 5-325 MG* 1 TAB PO PRN ×2 (14:01→21:52)
[2018-04-10] MEDS ORDERED: Lactated Ringers 1000 ML Bag* 1,000 ML IV SCH (16:41)
[2018-04-10 20:22] LABS: CO2 Carbon Dioxide 23 mmol/L (22-32); Chloride 103 mmol/L (101-111); Sodium 132 mmol/L (135-145)
[2018-04-10 20:26] LABS: Anion Gap 6 mmol/L (2-11)
[2018-04-10 20:27] LABS: BUN/Creatinine Ratio 20.7 (8-20); Blood Urea Nitrogen 12 mg/dL (6-24); EGFR African American 124.4 (>60); EGFR Non-African American 102.8 (>60); Glucose 189 mg/dL (70-100)
[2018-04-10] MEDS: Atorvastatin* 20 MG TAB PO SCH (21:07)
[2018-04-11] MEDS: levETIRAcetam 500 MG IVPREMIX* 500 MG/100 ML BAG IV SCH ×2 (04:52→17:11)
[2018-04-11] MEDS: HYDROcodone/ACETAMIN 5-325 MG* 1 TAB PO PRN ×3 (04:59→17:11)
[2018-04-11 05:20] LABS: Calcium 8.8 mg/dL (8.6-10.3); Potassium 3.6 mmol/L (3.5-5.0)
[2018-04-11 05:26] LABS: EGFR African American 129.5 (>60)
[2018-04-11 05:42] LABS: Hematocrit 37 % (35-47); Hemoglobin 11.9 g/dl (12.0-16.0); Mean Corpuscular HGB Conc 32 g/dl (31-36); Mean Corpuscular Hemoglobin 30 pg (27-31); Mean Corpuscular Volume 91 fL (80-97); Mean Platelet Volume 8.8 fL (7.4-10.4); Platelet Count 161 10^3/ul (150-450); Red Blood Count 4.03 10^6/ul (4.00-5.40); Red Cell Distribution Width 13 % (10.5-15); White Blood Count 7.2 10^3/ul (3.5-10.8)
[2018-04-11 06:08] LABS: BUN/Creatinine Ratio 19.6 (8-20)
[2018-04-11] MEDS: Insulin LISPRO* 1 UNITS UNIT SUBCUT SCH ×3 (06:28→20:39)
--- NOTE | 2018-04-11 07:49 | PN ---
Progress Note - Progress Note Date of Service: 04/10/18 SOAP: Subjective: []POD # 3 Much improved Awake conversant Minimal headache Objective: []Drains removed,Dressing changed Neuro intact F/U CT shows no shift Assessment: []Improved Plan: []Increase activity level
[2018-04-11] MEDS: Famotidine TAB* 20 MG PO SCH (07:54)
[2018-04-11] MEDS: amLODIPine TAB* 5 MG PO SCH (07:54)
[2018-04-11] MEDS: Enalapril TAB* 5 MG PO SCH (07:54)
[2018-04-11] MEDS: Insulin GLARGINE(*) 1 UNITS UNIT SUBCUT SCH (07:54)
--- NOTE | 2018-04-11 13:14 | PN ---
Date of Service: 04/11/18 - HD 5 Critical Care Services: 72 yo F presented to [place] ED on 04/07/2018 with altered mental status x 2 days. Seen by PCP and noted to have repetitive questioning prompting referral for evaluation. Per patient, she fell , hitting her head. Initial workup at that time negative. Evaluation in ED demonstrated altered mental status and repetitive statements. CT head positive for large left-sided chronic SDH with superimposed acute component. Neurosurgery consulted and Jeaneth adminstered for seizure prophylaxis. Went direct to OR for evacuation of SDH. Admitted to ICU post procedure on ventilator. 04/08: Post op CT with improvement in midline shift and mass effect. Possible persistent SDH vs mixed subdural collection present. Overnight required cardene gtt for SBP control. Following commands, moving all extremities off sedation. Successfully extubated. 04/09: passed swallow eval, started on clear liquids 04/10: noted to have large volume diuresis, monitoring for development of DI 04/11: drains removed. Vital Signs: Temp Pulse Resp BP SpO2 FiO2 98.2 F 64 19 143/70 90 30 04/11/18 11:24 04/11/18 12:15 04/11/18 12:15 04/11/18 12:00 04/11/18 12:15 04/08 08:04 Physical Exam: Gen: resting comfortably in bed, conversing with family HEENT: dressing intact Lungs: nonlabored breathing Cardiac: RRR Abdomen: nondistended Extremities: moving equally Neuro: alert, oriented, conversant Fluid Balance (Past 24 Hours): I= O= Net Intake & Output 04/09/18 04/10/18 04/11/18 04/12/18 06:59 06:59 06:59 06:59 Intake Total 3476 2321 3316 720 Output Total 1791 2006 3003 1050 Balance 1684 314 313 -330 Weight 140 lb 8 oz 141 lb 11.2 oz 146 lb 4.8 oz Intake: IV Fluids 1249 1280 2249 LR 1249 1280 2249 IVPB 203 215 217 KEPPRA 203 215 217 Medicated IV 2023 706 CC - Nicarpidine/Cardene 2023 706 Oral 120 850 720 Output: CARLOS #1 117 42 Cranial Drain 350 Simmons 1675 1965 2653 1050 Labs: Laboratory Results - last 24 hr 04/10/18 04/10/18 04/10/18 18:08 19:58 21:45 WBC RBC Hgb Hct MCV MCH MCHC RDW Plt Count MPV Sodium 132 L Potassium TNP 4.2 Chloride 103 Carbon Dioxide 23 Anion Gap 6 BUN 12 Creatinine 0.58 Est GFR ( Amer) 124.4 Est GFR (Non-Af Amer) 102.8 BUN/Creatinine Ratio 20.7 H Glucose 189 H POC Glucose (mg/dL) 204 H Calcium 8.0 L 04/10/18 04/11/18 04/11/18 23:43 05:00 05:00 WBC 7.2 RBC 4.03 Hgb 11.9 L Hct 37 MCV 91 MCH 30 MCHC 32 RDW 13 Plt Count 161 MPV 8.8 Sodium 136 Potassium 3.6 Chloride 105 Carbon Dioxide 24 Anion Gap 7 BUN 11 Creatinine 0.56 Est GFR ( Amer) 129.5 Est GFR (Non-Af Amer) 107.0 BUN/Creatinine Ratio 19.6 Glucose 101 H POC Glucose (mg/dL) 182 H Calcium 8.8 04/11/18 12:05 WBC RBC Hgb Hct MCV MCH MCHC RDW Plt Count MPV Sodium Potassium Chloride Carbon Dioxide Anion Gap BUN Creatinine Est GFR ( Amer) Est GFR (Non-Af Amer) BUN/Creatinine Ratio Glucose POC Glucose (mg/dL) 210 H Calcium Studies: 04/10 CT brain - slightly decreased pneumocephalus as compared to prior. little change in size of left frontal SDH. 04/09 CT brain - stable changes from prior left frontal craniectomy. again noted left sided SDH measuring 7x1.8cm unchanged from prior. stable minimal left to right shift 5mm. interval resolution of central SDH 04/08 CT brain - post surgical changes. signfinicat bifrontal pneumocephalus. left frontal SDH 7.9 x 1.7cm, decreased from prior study. interval development of central SDH approx 3mm. significant improvement of compression on left lateral ventricle and left to right midline shift. 04/08 CXR - small right basilar infiltrate. 04/07 CT cspine - no fracture of cervical spine noted 04/07 CT brain -large left-sided chronic SDH with superimposed acute component Nutrition: carb control diet Impression: 72 yo F presented to ED on 04/07 with altered mental status. Found to have acute on chronic SDH likely originating with fall and head trauma in 12/2017. Went to OR for evacuation. Postop recovery progressing well. Plan: Cardiovascular: (1) Hyperlipdemia; (2) Benign essential hypertension -- HR 51-81 -- SBP 92-169, goal 140-150 -- Telemetry -- Amlodipine, enalapril -- Atorvastatin Home meds: Atorvastatin Pulmonary: (1) Chronic asthma -- RR 12-28 -- sats 89-98 -- Albuterol as needed Home meds: Symbicort, Albuterol Gastrointestinal: No acute issues -- diet: Consistent carb diet -- bowel regimen: None -- ulcer prophylaxis: Pepcid -- Zofran as needed for nausea Home meds: Zofran Endocrine: (1) Diabetes mellitus type 2 -- monitor BGs -- Lantus and SSI Home meds: Lantus, Metformin Renal: No acute issues -- UOP: 110 ml/hr -- I/O:3316ml in / 3003 ml out -- Cr 0.56 from 0.58 -- Lytes Na 136 from 132, follow trend K 3.6 Ca 8.8 -- IVF: LR @ 100 ml/hr, HL as tolerating PO intake Home meds: None Infectious disease:No acute issues -- Tmax 100.1F -- WBC 7.2 from 10.8 -- Micro None -- ABX None Home meds: None Neurologic: (1) Acute on chronic SDH s/p left hemicraniotomy; (2) Acute encephalopathy, improving; (3) Brain compression -- Keppra for seizure prophylaxis -- Tylenol as needed -- [place] and Morphine as needed for pain control -- Neurosurgery following -- PT/OT Home meds: Benadryl at night, ibuprofen Hematological: No acute issues -- Hgb 11.9 from 11.2 -- Plt 161 from 190 -- DVT prophylaxis: SCDs. No chemoprophylaxis at this time secondary to intracranial hemorrhage Home meds: None Metabolic: No acute issues Home meds: None Deep vein thrombosis prophylaxis: SCDs Dietary: Pepcid Condition: stable Prognosis: good Code status: full Disposition: transfer to floor if cleared by neurosurgery Family updated at bedside regarding interval events and plan of care Cumulative time spent in the care of this patient (excluding any procedure time) : at least 30 minutes. Patient care included clinical interview (with patient and/or family), bedside exam of the patient, review of labs, x-rays, and other ancillary data, coordination of (respiratory, nursing care, review of patient's records, discussion regarding patients management with involved consultants, primary physician, pharmacists, and other healthcare personnel (dietary, case management , physical/occupational therapy etc.) Critical Care Time: 30 min
[2018-04-11] MEDS: Atorvastatin* 20 MG TAB PO SCH (20:40)
--- NOTE | 2018-04-11 21:09 | PN ---
Progress Note - Progress Note Date of Service: 04/11/18 SOAP: Subjective: [] No events ON. In ICU. No need for cardene drip. Drain are out Objective: []VSS, Afebrile Wound s,c,d AAOx3, JOCELINE, CN II-XII grossly intact. Motor 4-5/5. No pronator drift Sensory grossly intact to light touch Assessment: []72 yof POD#4 Left craniotomy for SDH Plan: [] Monitor VS, Neurochecks BP control, goal SBP 140-160 Keppra for [address] reveals persistent SDH, no midline shift. Consider transfer to the floor in am. Appreciate ICU care. Keagan Vee MD
[2018-04-12] MEDS: hydrALAZINE IV* 20 MG/ML VIAL IV SLOW PU PRN (00:25)
[2018-04-12] MEDS: levETIRAcetam 500 MG IVPREMIX* 500 MG/100 ML BAG IV SCH ×2 (04:48→18:28)
[2018-04-12 07:00] LABS: BUN/Creatinine Ratio 16.3 (8-20); Calcium 8.8 mg/dL (8.6-10.3); EGFR African American 151.1 (>60); EGFR Non-African American 124.9 (>60); Potassium 3.7 mmol/L (3.5-5.0)
[2018-04-12 07:02] LABS: Hematocrit 33 % (35-47); Hemoglobin 10.9 g/dl (12.0-16.0); Mean Corpuscular HGB Conc 34 g/dl (31-36); Mean Corpuscular Hemoglobin 30 pg (27-31); Mean Corpuscular Volume 88 fL (80-97); Platelet Count 207 10^3/ul (150-450); Red Blood Count 3.71 10^6/ul (4.00-5.40); Red Cell Distribution Width 13 % (10.5-15)
--- NOTE | 2018-04-12 07:42 | PN ---
Date of Service: 04/12/18 - HD 6 Critical Care Services: 72 yo F presented to [facility] ED on 04/07/2018 with altered mental status x 2 days. Seen by PCP and noted to have repetitive questioning prompting referral for evaluation. Per patient, she fell , hitting her head. Initial workup at that time negative. Evaluation in ED demonstrated altered mental status and repetitive statements. CT head positive for large left-sided chronic SDH with superimposed acute component. Neurosurgery consulted and Jeaneth adminstered for seizure prophylaxis. Went direct to OR for evacuation of SDH. Admitted to ICU post procedure on ventilator. 04/08: Post op CT with improvement in midline shift and mass effect. Possible persistent SDH vs mixed subdural collection present. Overnight required cardene gtt for SBP control. Following commands, moving all extremities off sedation. Successfully extubated. 04/09: passed swallow eval, started on clear liquids 04/10: noted to have large volume diuresis, monitoring for development of DI 04/11: drains removed. Vital Signs: Temp Pulse Resp BP SpO2 FiO2 99.1 F 74 20 165/75 93 30 04/12/18 03:43 04/12/18 06:15 04/12/18 06:30 04/12/18 06:01 04/12/18 06:15 04/08 08:04 Physical Exam: Gen: sleeping comfortably HEENT: dressings intact Lungs: nonlabored Cardiac: RRR Abdomen: nondistended Extremities: warm, dry, no edema Neuro: best exam GCS 15, moving all equally Fluid Balance (Past 24 Hours): I= O= Net Intake & Output 04/10/18 04/11/18 04/12/18 04/13/18 06:59 06:59 06:59 06:59 Intake Total 2321 3316 1885 Output Total 20063 4075 Balance 314 313 -2190 Weight 141 lb 11.2 oz 146 lb 4.8 oz 141 lb 14.4 oz Intake: IV Fluids 1280 2249 715 LR 1280 2249 715 IVPB 215 217 110 KEPPRA 215 217 110 Medicated IV 706 CC - Nicarpidine/Cardene 706 Oral 569 094 2899 Output: CARLOS #1 42 Cranial Drain 350 Simmons 1965 [id number] Labs: Laboratory Results - last 24 hr 02/11/19 02/11/19 02/11/19 12:05 16:56 20:34 WBC RBC Hgb Hct MCV MCH MCHC RDW Plt Count MPV Sodium Potassium Chloride Carbon Dioxide Anion Gap BUN Creatinine Est GFR ( Amer) Est GFR (Non-Af Amer) BUN/Creatinine Ratio Glucose POC Glucose (mg/dL) 210 H 161 H 279 H Calcium 04/12/18 04/12/18 06:33 06:33 WBC 8.0 RBC 3.71 L Hgb 10.9 L Hct 33 L MCV 88 MCH 30 MCHC 34 RDW 13 Plt Count 207 MPV 9.0 Sodium 135 Potassium 3.7 Chloride 102 Carbon Dioxide 24 Anion Gap 9 BUN 8 Creatinine 0.49 L Est GFR ( Amer) 151.1 Est GFR (Non-Af Amer) 124.9 BUN/Creatinine Ratio 16.3 Glucose 140 H POC Glucose (mg/dL) Calcium 8.8 Studies: 04/10 CT brain - slightly decreased pneumocephalus as compared to prior. little change in size of left frontal SDH. 04/09 CT brain - stable changes from prior left frontal craniectomy. again noted left sided SDH measuring 7x1.8cm unchanged from prior. stable minimal left to right shift 5mm. interval resolution of central SDH 04/08 CT brain - post surgical changes. signfinicat bifrontal pneumocephalus. left frontal SDH 7.9 x 1.7cm, decreased from prior study. interval development of central SDH approx 3mm. significant improvement of compression on left lateral ventricle and left to right midline shift. 04/08 CXR - small right basilar infiltrate. 04/07 CT cspine - no fracture of cervical spine noted 04/07 CT brain -large left-sided chronic SDH with superimposed acute component Nutrition: carb control diet Impression: 72 yo F presented to ED on 04/07 with altered mental status. Found to have acute on chronic SDH likely originating with fall and head trauma in 12/2017. Went to OR for evacuation. Postop recovery progressing well. Plan: Cardiovascular: (1) Hyperlipdemia; (2) Benign essential hypertension -- HR 58-90 -- SBP 118-177, goal 140-150 -- Telemetry -- Amlodipine, enalapril. Add metoprolol BID for better BP control -- PRN Hydralazine -- Atorvastatin Home meds: Atorvastatin Pulmonary: (1) Chronic asthma -- RR 12-25 -- sats 89-97 -- Albuterol as needed Home meds: Symbicort, Albuterol Gastrointestinal: No acute issues -- diet: Consistent carb diet -- bowel regimen: None -- ulcer prophylaxis: Pepcid -- Zofran as needed for nausea Home meds: Zofran Endocrine: (1) Diabetes mellitus type 2 -- monitor BGs -- Lantus and SSI Home meds: Lantus, Metformin Renal: No acute issues -- UOP: 170 ml/hr, autodiuresing -- I/O:1885 ml in / 4075 ml out -- Cr 0.49 from 0.56 -- Lytes Na 135 from 136, follow trend K 3.7 Ca 8.8 -- IVF: LR @ 100 ml/hr, HL as tolerating PO intake Home meds: None Infectious disease:No acute issues -- Tmax 100.4 -- WBC 8.0 from 7.2 -- Micro None -- ABX None Home meds: None Neurologic: (1) Acute on chronic SDH s/p left hemicraniotomy; (2) Acute encephalopathy, improving; (3) Brain compression -- Keppra for seizure prophylaxis -- Tylenol as needed -- [place] and Morphine as needed for pain control -- Neurosurgery following -- PT/OT Home meds: Benadryl at night, ibuprofen Hematological: No acute issues -- Hgb 10.9 from 11.9 -- Plt 207 from 161 -- DVT prophylaxis: SCDs. No chemoprophylaxis at this time secondary to intracranial hemorrhage Home meds: None Metabolic: No acute issues Home meds: None Deep vein thrombosis prophylaxis: SCDs Dietary: Pepcid Condition: stable Prognosis: good Code status: full Disposition: transfer to floor when cleared by neurosurgery Cumulative time spent in the care of this patient (excluding any procedure time) : at least 30 minutes. Patient care included clinical interview (with patient and/or family), bedside exam of the patient, review of labs, x-rays, and other ancillary data, coordination of (respiratory, nursing care, review of patient's records, discussion regarding patients management with involved consultants, primary physician, pharmacists, and other healthcare personnel (dietary, case management , physical/occupational therapy etc.) Critical Care Time: 30 min
[2018-04-12] MEDS: Acetaminophen TAB* 325 MG PO PRN (08:05)
[2018-04-12] MEDS: amLODIPine TAB* 5 MG PO SCH (08:05)
[2018-04-12] MEDS: Insulin GLARGINE(*) 1 UNITS UNIT SUBCUT SCH (08:05)
[2018-04-12] MEDS: Enalapril TAB* 5 MG PO SCH (08:05)
[2018-04-12] MEDS: Insulin LISPRO* 1 UNITS UNIT SUBCUT SCH ×4 (08:05→21:18)
[2018-04-12] MEDS: Metoprolol Tartrate TAB* 25 MG PO SCH ×2 (08:06→21:18)
[2018-04-12] MEDS: Famotidine TAB* 20 MG PO SCH (08:06)
[2018-04-12] MEDS ORDERED: Docusate CAP* 100 MG PO PRN (16:00)
[2018-04-12] MEDS ORDERED: Polyethylene Glycol 3350* 17 GM PACKET PO PRN (16:01)
[2018-04-12] MEDS ORDERED: cefTRIAXone(*) 1 GM in NS 0.9% 50 ML* 50 ML IVPB ONE (20:29)
--- NOTE | 2018-04-12 20:31 | PN ---
Hospitalist Progress Note Date of Service: 04/12/18 Overnight on-call hospitalist note: Nurse reports fever. Blood culture X 2, CXR, U/A ordered. patient reports no cough, no body aches, no burning w/ urine- but nurse reports patient had a carmona and was removed at 6PM- and has not voided yet. No nausea, no vomiting. Left upper arm: an area of induration, warmth and tenderness noted- cellulitis vs. inflammation from IV site- phlebitis? will give one dose of Rocephin now. Will ask my daytime colleague for re- evaluation. Chest xray Reviewed by me, official read pending: no infiltrate or infectious process. At 10:00PM: discussed with RN, patient still has not urinated, advise nurse that if by midnight still has not urinated- will need bladder scan. 12:36AM: patient voided on her own a little while ago, UA reviewed possible UTI. will start rocephin daily.
[2018-04-12] MEDS: Atorvastatin* 20 MG TAB PO SCH (21:17)
[2018-04-12] MEDS: Senna TAB PO SCH (21:18)
[2018-04-12 22:41] LABS: Urine Appearance Cloudy; Urine Bacteria Absent (Absent); Urine Bilirubin Negative (Negative); Urine Blood 1+ (Negative); Urine Color Yellow; Urine Glucose 1+(50 mg/dL) (Negative); Urine Ketones Negative (Negative); Urine Nitrite Negative (Negative); Urine Protein Negative (Negative); Urine Red Blood Cell 1+(3-5/hpf) (Absent); Urine Specific Gravity 1.012 (1.010-1.030); Urine Squamous Epithelial Cell Present (Absent); Urine Urobilinogen Negative (Negative); Urine White Blood Cell 2+(11-20/hpf) (Absent)
[2018-04-13] MEDS: hydrALAZINE IV* 20 MG/ML VIAL IV SLOW PU PRN ×2 (01:10→16:45)
[2018-04-13] MEDS ORDERED: Enalaprilat IV* 1.25 MG/ML 1 ML VIAL (1.25 MG) IV ONE (02:16)
[2018-04-13] MEDS: levETIRAcetam 500 MG IVPREMIX* 500 MG/100 ML BAG IV SCH ×2 (05:44→16:45)
[2018-04-13] MEDS: Acetaminophen TAB* 325 MG PO PRN (05:58)
[2018-04-13 06:11] LABS: Hematocrit 35 % (35-47); Hemoglobin 11.8 g/dl (12.0-16.0); Mean Corpuscular HGB Conc 34 g/dl (31-36); Mean Corpuscular Hemoglobin 30 pg (27-31); Mean Corpuscular Volume 88 fL (80-97); Mean Platelet Volume 8.7 fL (7.4-10.4); Platelet Count 279 10^3/ul (150-450); Red Blood Count 3.98 10^6/ul (4.00-5.40); Red Cell Distribution Width 13 % (10.5-15); White Blood Count 7.9 10^3/ul (3.5-10.8)
[2018-04-13 06:42] LABS: Calcium 9.2 mg/dL (8.6-10.3); EGFR African American 124.4 (>60); EGFR Non-African American 102.8 (>60); Potassium 3.8 mmol/L (3.5-5.0)
[2018-04-13] MEDS: Famotidine TAB* 20 MG PO SCH (08:48)
[2018-04-13] MEDS: Enalapril TAB* 5 MG PO SCH (08:48)
[2018-04-13] MEDS: Metoprolol Tartrate TAB* 25 MG PO SCH ×2 (08:49→21:11)
[2018-04-13] MEDS: amLODIPine TAB* 5 MG PO SCH (08:49)
[2018-04-13] MEDS: Insulin GLARGINE(*) 1 UNITS UNIT SUBCUT SCH (08:49)
[2018-04-13] MEDS: Insulin LISPRO* 1 UNITS UNIT SUBCUT SCH ×4 (08:49→21:48)
[2018-04-13] MEDS ORDERED: Insulin GLARGINE(*) 1 UNITS UNIT SUBCUT SCH (14:00)
--- NOTE | 2018-04-13 14:17 | PN ---
Subjective Date of Service: 04/13/18 Interval History: No c/o. Objective Active Medications: Acetaminophen (Tylenol Tab*) 650 mg PO Q4H PRN PRN Reason: PAIN Last Admin: 04/13/18 05:58 Dose: 650 mg Hydrocodone Bitart/Acetaminophen ([place] 5-325 Tab*) 1 tab PO Q4H PRN PRN Reason: moderate pain Last Admin: 04/11/18 17:11 Dose: 1 tab Amlodipine Besylate (Norvasc Tab*) 10 mg PO DAILY [facility] Last Admin: 04/13/18 08:49 Dose: 10 mg Atorvastatin Calcium (Lipitor*) 20 mg PO BEDTIME [facility] Last Admin: 04/12/18 21:17 Dose: 20 mg Dextrose (D50w Syringe 50 Ml*) 12.5 gm IV PUSH .FOR FS < 60 - SS PRN PRN Reason: FS < 60 Docusate Sodium (Colace Cap*) 100 mg PO DAILY PRN PRN Reason: CONSTIPATION Enalapril Maleate (Vasotec Tab*) 5 mg PO DAILY [facility] Last Admin: 04/13/18 08:48 Dose: 5 mg Famotidine (Pepcid Tab*) 20 mg PO DAILY [facility] Last Admin: 04/13/18 08:48 Dose: 20 mg Hydralazine HCl (Apresoline Iv*) 10 mg IV SLOW PU Q4H PRN PRN Reason: SBP >160 Last Admin: 04/13/18 01:10 Dose: 10 mg Levetiracetam (Keppra Iv Premix*) 500 mg in 100 mls @ 400 mls/hr IV Q12H [facility] Stop: 04/15/18 04:59 Last Admin: 04/13/18 05:44 Dose: 400 mls/hr Ceftriaxone Sodium 1 gm/ (Sodium Chloride) 50 mls @ 200 mls/hr IVPB Q24H [facility] Insulin Glargine (Lantus(*)) 26 units SUBCUT Q24H [facility] Insulin Human Lispro (Humalog*) 0 units SUBCUT ACHS [facility]; Protocol Last Admin: 04/13/18 13:01 Dose: 6 units Metoprolol Tartrate (Lopressor Tab*) 25 mg PO BID [facility] Last Admin: 04/13/18 08:49 Dose: 25 mg Polyethylene Glycol/Electrolytes (Miralax*) 17 gm PO DAILY PRN PRN Reason: CONSTIPATION Senna (Senokot Tab*) 1 tab PO BEDTIME [facility] Last Admin: 04/12/18 21:18 Dose: 1 tab Vital Signs - 8 hr 04/13/18 04/13/18 04/13/18 06:15 06:30 06:45 Temperature Pulse Rate 84 78 83 Respiratory 21 18 21 Rate Blood Pressure (mmHg) O2 Sat by Pulse 96 98 95 Oximetry 04/13/18 04/13/18 04/13/18 07:00 07:15 07:30 Temperature Pulse Rate 87 85 87 Respiratory 23 19 23 Rate Blood Pressure (mmHg) O2 Sat by Pulse 94 93 94 Oximetry 04/13/18 04/13/18 04/13/18 07:45 08:00 08:01 Temperature 98 F Pulse Rate 84 82 81 Respiratory 22 16 22 Rate Blood Pressure 134/56 (mmHg) O2 Sat by Pulse 93 96 96 Oximetry 04/13/18 04/13/18 04/13/18 08:15 08:30 08:45 Temperature Pulse Rate 85 78 74 Respiratory 26 18 20 Rate Blood Pressure (mmHg) O2 Sat by Pulse 96 97 97 Oximetry 04/13/18 04/13/18 04/13/18 09:09 09:15 09:30 Temperature Pulse Rate 77 66 Respiratory 18 22 20 Rate Blood Pressure (mmHg) O2 Sat by Pulse 98 98 Oximetry 04/13/18 04/13/18 04/13/18 09:45 10:04 10:15 Temperature Pulse Rate 65 72 Respiratory 15 17 23 Rate Blood Pressure (mmHg) O2 Sat by Pulse 99 97 Oximetry 04/13/18 04/13/18 04/13/18 10:30 10:45 11:00 Temperature Pulse Rate 69 63 68 Respiratory 20 22 27 Rate Blood Pressure (mmHg) O2 Sat by Pulse 95 100 Oximetry 04/13/18 04/13/18 04/13/18 11:15 11:30 11:45 Temperature Pulse Rate 69 65 65 Respiratory 19 16 19 Rate Blood Pressure (mmHg) O2 Sat by Pulse 100 98 99 Oximetry 04/13/18 04/13/18 04/13/18 12:00 12:19 12:30 Temperature 98.2 F Pulse Rate 69 69 Respiratory 18 20 20 Rate Blood Pressure 131/66 (mmHg) O2 Sat by Pulse 100 100 Oximetry 02/13/19 02/13/19 12:45 13:00 Temperature Pulse Rate 71 69 Respiratory 25 23 Rate Blood Pressure (mmHg) O2 Sat by Pulse 98 97 Oximetry Oxygen Devices in Use Now: None Appearance: Alert, partly up on ICU bed. In good spirits. Looks comfortable. Eyes: No Scleral Icterus Neck: NL Appearance and Movements; NL JVP, No Thyroid Enlargement, Masses Respiratory: Symmetrical Chest Expansion and Respiratory Effort, Clear to Auscultation, Clear to Percussion Cardiovascular: NL Sounds; No Murmurs; No JVD, RRR, No Edema, - Extremities: No Edema, No Clubbing, Cyanosis, - Skin: No Rash or Ulcers, No Nodules or Sclerosis, - - bandage over L scalp Neurological: Alert and Oriented x 3, NL Sensation Result Diagrams: 04/13/18 05:59 04/13/18 05:59 Microbiology and Other Data: Microbiology 04/08/18 05:38 Nasal Screen MRSA (PCR) - Final Nasal Mrsa Not Detected Assess/Plan/Problems-Billing Assessment: - Patient Problems (1) SDH (subdural hematoma) Current Visit: Yes Status: Acute Code(s): S06.5X9A - TRAUM SUBDR HEM W LOC OF UNSP DURATION, INIT SNOMED Code(s): 870735105 Comment: S/P evacuation 04/08/18. Continue levetiracetam. PMRU eval pending. (2) Diabetes Current Visit: Yes Status: Acute Code(s): E11.9 - TYPE 2 DIABETES MELLITUS WITHOUT COMPLICATIONS SNOMED Code(s): 81224100 Comment: Increase Lantus to 26 U 2/14 AM. Note she only takes 15 U at home. (3) HTN (hypertension) Current Visit: Yes Status: Acute Code(s): I10 - ESSENTIAL (PRIMARY) HYPERTENSION SNOMED Code(s): 91944453 Comment: Continue amlodppine, metoprolol. (4) Fever Current Visit: Yes Status: Acute Code(s): R50.9 - FEVER, UNSPECIFIED SNOMED Code(s): 528108561 Comment: T 100.2 on 04/12. Urine and blood C&S x 1 pending. Continue ceftriaxone.
[2018-04-13] MEDS ORDERED: Magnesium Hydroxide LIQ* 30 ML UDC PO ONE (15:16)
--- NOTE | 2018-04-13 17:52 | PN ---
Progress Note - Progress Note Date of Service: 04/13/18 SOAP: Subjective: []Patient was seen earlier today in ICU. No events ON. Tolerates PO well. Voids. OOB in a chair yesterday. UA positive for UTI Objective: []VSS, Afebrile Wound s,c,d AAOx3, JOCELINE, CN II-XII grossly intact. Motor 4-5/5. No pronator drift Sensory grossly intact to light touch Assessment: []72 yof POD#5 Left craniotomy for SDH Plan: [] Monitor VS, Neurochecks BP control, goal SBP 140-160 Keppra for 7 days. DC planning. PT eval. Appreciate ICU/ IM care. Keagan Vee MD
[2018-04-13] MEDS ORDERED: Enalapril TAB* 5 MG PO ONE (18:07)
[2018-04-13] MEDS: Atorvastatin* 20 MG TAB PO SCH (21:10)
[2018-04-13] MEDS: Senna TAB PO SCH (21:11)
[2018-04-13] MEDS: Polyethylene Glycol 3350* 17 GM PACKET PO SCH (21:38)
[2018-04-13] MEDS: cefTRIAXone(*) 1 GM in NS 0.9% 50 ML* 50 ML IVPB SCH (21:51)
[2018-04-14 05:21] LABS: Hematocrit 31 % (35-47); Hemoglobin 10.4 g/dl (12.0-16.0); Mean Corpuscular HGB Conc 34 g/dl (31-36); Mean Corpuscular Hemoglobin 30 pg (27-31); Mean Corpuscular Volume 87 fL (80-97); Mean Platelet Volume 8.4 fL (7.4-10.4); Platelet Count 240 10^3/ul (150-450); Red Cell Distribution Width 12 % (10.5-15); White Blood Count 5.7 10^3/ul (3.5-10.8)
[2018-04-14] MEDS: levETIRAcetam 500 MG IVPREMIX* 500 MG/100 ML BAG IV SCH ×2 (05:32→16:37)
[2018-04-14 05:49] LABS: BUN/Creatinine Ratio 14.8 (8-20); Calcium 8.7 mg/dL (8.6-10.3); EGFR African American 117.3 (>60)
[2018-04-14] MEDS: Polyethylene Glycol 3350* 17 GM PACKET PO SCH ×2 (08:43→21:27)
[2018-04-14] MEDS: Enalapril TAB* 5 MG PO SCH (08:54)
[2018-04-14] MEDS: Metoprolol Tartrate TAB* 25 MG PO SCH ×2 (08:54→21:26)
[2018-04-14] MEDS: amLODIPine TAB* 5 MG PO SCH (08:54)
[2018-04-14] MEDS: Famotidine TAB* 20 MG PO SCH (08:54)
[2018-04-14] MEDS: Acetaminophen TAB* 325 MG PO PRN ×2 (08:55→21:26)
[2018-04-14] MEDS: Insulin LISPRO* 1 UNITS UNIT SUBCUT SCH ×5 (08:56→21:40)
[2018-04-14] MEDS: Insulin GLARGINE(*) 1 UNITS UNIT SUBCUT SCH (08:58)
--- NOTE | 2018-04-14 16:57 | PN ---
Subjective Date of Service: 04/14/18 Interval History: HOSPITALIST PROGRESS NOTE Patient seen and examined at bedside. Care reviewed and d/w Anton Weinstein RN. She is anxious for discharge and is adamant she won't to to a "USP". C/ o mild diffuse headache. Family History: Unchanged from Admission Social History: Unchanged from Admission Past Medical History: Unchanged from Admission Objective Active Medications: Acetaminophen (Tylenol Tab*) 650 mg PO Q4H PRN PRN Reason: PAIN Last Admin: 04/14/18 08:55 Dose: 650 mg Hydrocodone Bitart/Acetaminophen ([place] 5-325 Tab*) 1 tab PO Q4H PRN PRN Reason: moderate pain Last Admin: 04/11/18 17:11 Dose: 1 tab Amlodipine Besylate (Norvasc Tab*) 10 mg PO DAILY [facility] Last Admin: 04/14/18 08:54 Dose: 10 mg Atorvastatin Calcium (Lipitor*) 20 mg PO BEDTIME [facility] Last Admin: 04/13/18 21:10 Dose: 20 mg Dextrose (D50w Syringe 50 Ml*) 12.5 gm IV PUSH .FOR FS < 60 - SS PRN PRN Reason: FS < 60 Docusate Sodium (Colace Cap*) 100 mg PO DAILY PRN PRN Reason: CONSTIPATION Last Admin: 04/13/18 21:11 Dose: 100 mg Enalapril Maleate (Vasotec Tab*) 10 mg PO DAILY [facility] Last Admin: 04/14/18 08:54 Dose: 10 mg Famotidine (Pepcid Tab*) 20 mg PO DAILY [facility] Last Admin: 04/14/18 08:54 Dose: 20 mg Hydralazine HCl (Apresoline Iv*) 10 mg IV SLOW PU Q4H PRN PRN Reason: SBP >160 Last Admin: 04/13/18 16:45 Dose: 10 mg Levetiracetam (Keppra Iv Premix*) 500 mg in 100 mls @ 400 mls/hr IV Q12H [facility] Stop: 04/15/18 04:59 Last Admin: 04/14/18 16:37 Dose: 400 mls/hr Ceftriaxone Sodium 1 gm/ (Sodium Chloride) 50 mls @ 200 mls/hr IVPB Q24H [facility] Last Admin: 04/13/18 21:51 Dose: 200 mls/hr Insulin Glargine (Lantus(*)) 26 units SUBCUT 0800 [facility] Last Admin: 04/14/18 08:58 Dose: 26 unit Insulin Human Lispro (Humalog*) 0 units SUBCUT ACHS [facility]; Protocol Last Admin: 04/14/18 14:09 Dose: 4 units Metoprolol Tartrate (Lopressor Tab*) 25 mg PO BID [facility] Last Admin: 04/14/18 08:54 Dose: 25 mg Polyethylene Glycol/Electrolytes (Miralax*) 17 gm PO DAILY PRN PRN Reason: CONSTIPATION Polyethylene Glycol/Electrolytes (Miralax*) 17 gm PO 0800,2100 [facility] Last Admin: 04/14/18 08:43 Dose: Not Given Senna (Senokot Tab*) 1 tab PO BEDTIME [facility] Last Admin: 04/13/18 21:11 Dose: 1 tab Vital Signs - 8 hr 04/14/18 04/14/18 04/14/18 11:37 12:22 14:45 Temperature 97.6 F 97.8 F Pulse Rate 44 76 74 Respiratory 16 16 Rate Blood Pressure 135/38 120/51 (mmHg) O2 Sat by Pulse 95 99 Oximetry Oxygen Devices in Use Now: None Appearance: Elderly lady sitting up in bed in [facility]. Eyes: No Scleral Icterus Ears/Nose/Mouth/Throat: Mucous Membranes Moist Neck: Trachea Midline Respiratory: Symmetrical Chest Expansion and Respiratory Effort, Clear to Auscultation Cardiovascular: RRR - Normal S1 and S2 Neurological: Alert and Oriented x 3, NL Muscle Strength and Tone, - - Surgical wound is clean and dry Result Diagrams: 04/14/18 04:53 04/14/18 04:53 Assess/Plan/Problems-Billing Assessment: Mrs Scott is a 72 yo F with PMH of type 2 DM, asthma, HLD, who presented to ED with dysarthria, confusion, after a fall. Found to have left SDH s/p craniotomy and SDH evacuation 04/07/[address] Vee. - Patient Problems (1) UTI (urinary tract infection) Comment: - UA is abnormal. - Continue Ceftriaxone and follow culture. (2) SDH (subdural hematoma) Comment: - s/p evacuation 04/08/18. - Neurosurgery input appreciated - goal SBP 140-160, continue levetiracetam for 7 days. - Awaiting PMRU decision. (3) Diabetes Comment: - Lantus increased 26 U 2/14 AM. - Increase Lispro sliding scale. (4) HTN (hypertension) Comment: - Goal SBP 140-160 - continue amlodipine, metoprolol, and enalapril. (5) DVT prophylaxis Comment: - SCDs. (6) Full code status Status and Disposition: Inpatient. Awaiting PMRU evaluation.
[2018-04-14] MEDS ORDERED: hydrALAZINE IV* 20 MG/ML VIAL IV SLOW PU PRN (17:05)
[2018-04-14 17:31] LABS: Urine Appearance Clear; Urine Bilirubin Negative (Negative); Urine Blood Negative (Negative); Urine Color Straw; Urine Glucose 3+(>=500 mg/dL) (Negative); Urine Ketones Negative (Negative); Urine Nitrite Negative (Negative); Urine Protein Negative (Negative); Urine Specific Gravity 1.007 (1.010-1.030); Urine Urobilinogen Negative (Negative)
[2018-04-14 17:45] LABS: ABS Basophils 0 10^3/ul (0-0.2); ABS Eosinophils 0.2 10^3/ul (0-0.6); ABS Lymphocytes 1.3 10^3/ul (1.0-4.8); ABS Monocytes 0.6 10^3/ul (0-0.8); ABS Neutrophils 3.7 10^3/ul (1.5-7.7); ABS Nucleated RBC 0 10^3/ul; Eosinophil % 3.3 %; Hematocrit 31 % (35-47); Hemoglobin 10.5 g/dl (12.0-16.0); Lymphocyte % 22.5 %; Mean Corpuscular HGB Conc 34 g/dl (31-36); Mean Corpuscular Hemoglobin 30 pg (27-31); Mean Corpuscular Volume 87 fL (80-97); Mean Platelet Volume 8.6 fL (7.4-10.4); Nucleated Red Blood Cells % 0.1; Platelet Count 262 10^3/ul (150-450); Red Blood Count 3.53 10^6/ul (4.00-5.40); Red Cell Distribution Width 13 % (10.5-15); White Blood Count 5.9 10^3/ul (3.5-10.8)
[2018-04-14 17:50] LABS: INR 1.02 (0.77-1.02)
[2018-04-14 18:05] LABS: BUN/Creatinine Ratio 17.5 (8-20); EGFR Non-African American 93.4 (>60); Potassium 4.2 mmol/L (3.5-5.0)
[2018-04-14] MEDS ORDERED: NS 0.9% 50 ML* 50 ML ONE (21:22)
[2018-04-14] MEDS: Atorvastatin* 20 MG TAB PO SCH (21:26)
[2018-04-14] MEDS: Senna TAB PO SCH (21:26)
[2018-04-14] MEDS: cefTRIAXone(*) 1 GM in NS 0.9% 50 ML* 50 ML IVPB SCH (21:26)
--- NOTE | 2018-04-15 02:28 | PN ---
Progress Note - Progress Note Date of Service: 04/14/18 SOAP: Subjective: []Patient was seen earlier today on regular floor. No events ON. Tolerates PO well. Voids. Ambulated. Had brief episode of mild confusion that resolved spontaneously Objective: []VSS, Afebrile Wound s,c,d AAOx3, JOCELINE, CN II-XII grossly intact. Motor 4-5/5. No pronator drift Sensory grossly intact to light touch Assessment: []72 yof POD#6 Left craniotomy for SDH Plan: []Monitor VS, Neurochecks BP control, goal SBP 140-160 Keppra for 7 days. Labs ordered. Repeat CT in am. DC planning. PT eval. Appreciate IM care. Keagan Vee MD
[2018-04-15] MEDS: Famotidine TAB* 20 MG PO SCH (07:32)
[2018-04-15] MEDS: amLODIPine TAB* 5 MG PO SCH (07:32)
[2018-04-15] MEDS: Metoprolol Tartrate TAB* 25 MG PO SCH (07:32)
[2018-04-15] MEDS: Polyethylene Glycol 3350* 17 GM PACKET PO SCH (07:33)
[2018-04-15] MEDS: Enalapril TAB* 5 MG PO SCH (07:33)
[2018-04-15] MEDS: Acetaminophen TAB* 325 MG PO PRN (07:43)
--- NOTE | 2018-04-15 09:06 | PN ---
Progress Note - Progress Note Date of Service: 04/15/18 SOAP: Subjective: [S/p left frontal craniotomy for SDH evacuation on 04/07/18. States that she is feeling well this morning. Denies headache, nausea, vision change, gait instability Ambulating well Eating and drinking without difficulty. Visiting with family members this morning] Objective: [ Vital Signs: Temp Pulse Resp BP Pulse Ox 98.7 F 67 16 156/53 98 04/15/18 05:14 04/15/18 05:14 04/15/18 07:48 04/15/18 05:14 04/15/18 05:14 General: Alert, sitting up eating breakfast Neuro: Speech is clear. Oriented to person, disoriented to place and date. States date as her home address. PERRL. Mild right pronator drift. Mild right upper and lower extremity weakness. Sensation intact throughout. No facial droop. Incision: Dressing in place, no swelling. ] Assessment: [Disoriented, exam stable with mild right sided weakness. ] Plan: [1. Possible dc to PMRU if pt is accepted 2. Will discuss case with Dr. Vee, possible need for follow up CT brain ]
[2018-04-15] MEDS: Insulin LISPRO* 1 UNITS UNIT SUBCUT SCH ×2 (10:36→13:05)
[2018-04-15] MEDS: Insulin GLARGINE(*) 1 UNITS UNIT SUBCUT SCH (10:36)
[2018-04-15 12:20] VITALS: BP 119/41
--- NOTE | 2018-04-16 00:07 | DS ---
CC: Dr. Kellie Fletcher; Dr. Anna Tom at [facility]; Dr. Vee DISCHARGE SUMMARY: DATE OF ADMISSION: 04/07/18 DATE OF DISCHARGE: 04/15/18 PRIMARY CARE PROVIDER: Dr. Kellie Fletcher. CONSULTING NEUROSURGEON: Dr. Vee. DISCHARGE DIAGNOSIS: Subdural hematoma, status post evacuation on 04/08/18. SECONDARY DIAGNOSES: 1. Type 2 diabetes. 2. Asthma. 3. Hyperlipidemia. MEDICATION LIST: 1. Atorvastatin 20 mg p.o. at bedtime. 2. Metformin 1000 mg p.o. in the morning and 500 mg p.o. at bedtime. 3. Zofran 4 to 8 mg p.o. b.i.d. as needed for nausea. 4. Symbicort 80/4.5 two puffs inhale b.i.d. 5. Albuterol HFA two puffs inhale q.4 hours p.r.n. shortness of breath. 6. Senna one tablet p.o. at bedtime. 7. MiraLax 17 g p.o. at 8 a.m. and 9 p.m. and daily as needed for constipation. 8. Metoprolol tartrate 25 mg p.o. b.i.d. 9. Lispro sliding scale. 10. Lantus 26 units subcutaneously daily. 11. Famotidine 20 mg p.o. daily. 12. Enalapril 10 mg p.o. daily. 13. Colace 100 mg p.o. daily as needed for constipation. HOSPITAL COURSE: Ms. 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 She went to the ER, had multiple sutures placed to her scalp. Initially she wa s doing well, but a few days prior to admission had more confusion with words, was repeating words u nnecessarily. CT of the brain done in the emergency room showed large left-sided chronic subdural he matoma with superimposed acute component. The patient was admitted to the Intensive Care Unit, seen in consultation by Neurosurgery (Dr. Cecelia magallon) and the recommendation was for surgical treatment. On 04/08/18, the patient underwent left fron tarun temporoparietal craniotomy for evacuation of the left subdural hematoma and she was managed in U in the postop period. After surgery, her CT showed improvement in the midline shift and mass effect, but there was still po ssible persistent subdural versus mixed subdural collection present. The patient had swallow evaluat ion and was able to tolerate a soft diet. Early on her ICU stay, she required Cardene drip for blood pressure control. On 04/08/18, she was successfully extubated and she continued to improve and on 04/12/18, she was tra nsferred to the surgical floor. Neurosurgery recommended her SBP be kept between 140 and 160. Her blood pressure has been reasonably well controlled with enalapril and metoprolol. Sometimes she had required some hydralazine IV. The patient had progressive improvement of her symptoms. Her confusion is still present but is impro cesar. She completed 7 days of Keppra for a seizure prophylaxis. She was found to have OT and PT needs and she was accepted to [facility] to continue her rehabilitation pro cess. The patient did have one episode of low-grade temperature on 04/12/18 and her urinalysis was a bnormal. At that point, there was concern for possible urinary tract infection and the patient was s tarted on ceftriaxone empirically, but her urine culture came back negative and a repeat urinalysis w as normal, so the patient did not have a urinary tract infection. PHYSICAL EXAMINATION: Vital Signs: Temperature 97.9, heart rate is 64, respiratory rate is 18, oxyg en saturation 100% on room air, blood pressure is 151/48. General: The patient is an elderly lady, sitting up in bed, in no acute distress. CVS: Normal S1, S2. Regular rate and rhythm. Chest: Alysia ath sounds bilaterally with no added sounds. Neuro: She is alert and oriented x3. She is able to m ove all 4 extremities. She follows commands. Although, the neurosurgical PA note had documented mil d right pronator drift, I did not find any significant right-sided weakness on my examination. DIET: Consistent carb soft diet. ACTIVITIES: PT/OT as tolerated. DISPOSITION: To [facility]. STATUS WHILE IN THE HOSPITAL: Inpatient. CONDITION: Fair. Please keep in mind that this is a summarized version of this patient's hospital stay. If you need m ore information, please feel free to call me at [phone] or please obtain full medical records. TIME SPENT: Approximately 45 minutes was spent to complete this discharge. [id number]/[facility] #: [id number]
== END 2018-04-15 13:45 | DRG 26 ==
LOC: ED 14:26 → OR 17:01 → ICU 21:20 → SSU 04-13 17:46
PROVIDERS: ADMIT Neurological Surgery; ATTEND Internal Medicine
PROC: 00C40ZZ Extirpation of Matter from Intracranial Subdural Space, Open Approach (ICD-10-PCS; 2018-04-07)
PROC: 5A1935Z Respiratory Ventilation, Less than 24 Consecutive Hours (ICD-10-PCS; 2018-04-07)
PROC: 0BH17EZ Insertion of Endotracheal Airway into Trachea, Via Natural or Artificial Opening (ICD-10-PCS; principal; 2018-04-07 18:02)
DX: S06.5X0A Traumatic subdural hemorrhage without loss of consciousness, initial encounter (principal); G81.91 Hemiplegia, unspecified affecting right dominant side; G93.40 Encephalopathy, unspecified; R40.2362 Coma scale, best motor response, obeys commands, at arrival to emergency department; R40.2142 Coma scale, eyes open, spontaneous, at arrival to emergency department; R40.2252 Coma scale, best verbal response, oriented, at arrival to emergency department; R29.701 NIHSS score 1; E11.9 Type 2 diabetes mellitus without complications; E78.5 Hyperlipidemia, unspecified; J45.909 Unspecified asthma, uncomplicated; W17.89XA Other fall from one level to another, initial encounter; Y92.019 Unspecified place in single-family (private) house as the place of occurrence of the external cause; Z88.8 Allergy status to other drugs, medicaments and biological substances; R13.10 Dysphagia, unspecified; I10 Essential (primary) hypertension; R50.9 Fever, unspecified; Z79.4 Long term (current) use of insulin
CPT/HCPCS: 36415; 70450; 71045; 72125; 80048; 80053; 80061; 80076; 80320; 81003; 81015; 82803; 83036; 83605; 84443; 84484; 85025; 85027; 85610; 85730; 86850; 86900; 86901; 87040; 87086; 87641; 93005; 94002; 94003; 99285; A9270-GY; C1713; C1776; G0480; G8978-GP-CK; G8979-GP-CH; G8987-GO-CL; G8988-GO-CI; J0330; J0360; J0690; J0696; J2001; J2150; J2250; J2270; J2405; J2704; J3010; J3490

== ENCOUNTER 2018-04-15 12:31 | Inpatient (IN) | payer MEDICARE ==
[2018-04-15] MEDS ORDERED: Magnesium Hydroxide LIQ* 30 ML UDC PO PRN (12:57)
[2018-04-15] MEDS ORDERED: Bisacodyl SUPP* 10 MG SUPP PR PRN (12:57)
[2018-04-15] MEDS ORDERED: Al Hydrox/Mg Hydrox/Simet LIQ* 30 ML UDC PO PRN (12:57)
[2018-04-15] MEDS ORDERED: Senna TAB PO PRN (12:57)
[2018-04-15] MEDS ORDERED: Dextrose 50% Syringe 50 ML* 25 GM/50 ML SYRINGE IV PUSH PRN (13:07)
[2018-04-15] MEDS ORDERED: hydrALAZINE TAB* 10 MG PO PRN (13:15)
[2018-04-15] MEDS ORDERED: Albuterol HFA INHALER* 8 gm MDI INH PRN (13:28)
--- OUTSIDE RECORDS SUMMARY | 2018-04-15 14:09 | XMS REPORT | Continuity of Care Document ---
:1945 External Reference #:[id number] Author Name AleksandarLakesha Care Team Providers Name Role Phone Kellie Fletcher DO Primary Care Physician Unavailable Payers Date Identification Numbers Payment Provider Subscriber Policy Number: [id number] Medicare Blue Ppo Richelle Scott PayID: [id number] [address] [address] [place] [address] Effective: 2016 Policy Number: [id number] BS Facets Richelle Scott Expires: 2017 Group Number: [id number] [address] PayID: [id number] [place] [address] Advance Directives Description No Information Available Problems Description No Information Family History Date Family Member(s) Observation Comments General AR General Heart Disease General Suicide Social History Type Date Description Comments Sex Unknown Lives With Son Occupation Retired ETOH Use Denies alcohol use Tobacco Use Start: Unknown Patient has never smoked Smoking Status Reviewed: 07/12/17 Patient has never smoked Exercise Type/Frequency Exercises sporadically Allergies, Adverse Reactions, Alerts Date Description Reaction Status Severity Comments 11/09/2016 Paxil Anaphylaxis Active Medications Medication Date Status Form Strength Qnty SIG Indications Ordering Provider Naproxen Active Tablets 500mg 60tabs 1 by M17.12 Bogdan F 017 mouth Parker, twice a MD day as needed pain Ventolin HFA Active Aerosol 108(90Base 2 puffs Unknown 000 ) mcg/Act by mouth four times a day as needed Benadryl Active Tablets 25mg 1 tab by Unknown 000 mouth at night as needed Ibuprofen Active Tablets 200mg as needed Unknown 000 Symbicort Active Aerosol 80-4.5mcg/ 2 puff Unknown 000 Act twice a day Gabapentin Active Capsules 100mg take 1 Unknown 000 capsule by mouth at night for 1 week then 1 by mouth twice daily ongoing Metformin HCL Active Tablets 500mg 1 by Unknown 000 mouth twice a day Lantus Active Solution 100Unit/ML Uad Unknown Solostar 000 Pen-Inject Immunizations Description No Information Available Vital Signs Date Vital Result Comment 07/12/2017 10:08am Height 61 inches 5'1" Weight 130.00 lb Heart Rate 76 /min BP Systolic Recheck 120 mmHg BP Diastolic Recheck 80 mmHg Respiratory Rate 16 /min Body Temperature 98.0 F BMI (Body Mass Index) 24.6 kg/m2 11/09/2016 9:59am Height 61 inches 5'1" Weight 124.00 lb Heart Rate 76 /min BP Systolic Recheck 122 mmHg BP Diastolic Recheck 80 mmHg Respiratory Rate 16 /min Body Temperature 97.7 F BMI (Body Mass Index) 23.4 kg/m2 Results Test Date Facility Test Result H/L Range Note Laboratory test 04/07/2018 [facility] Floseal SEE RESULTS 1 , [address] [place] <[place] [address] NOTE> [phone] Laboratory test 04/07/2018 [facility] Point of Care 113 mg/dL High 70-[address] [place] [address] [phone] 1 CRANIOTOMY 2 SEE RESULTS BELOW [id number] FLOSEAL TRANSFUSED 04/07/18 1843 3 [place] [employer] Operator: [id number] Procedures Date Code Description Status 11/09/2016 94221 Inject/Drain Joint/Bursa Major W/O US Completed Encounters Type Date Location Provider Dx Diagnosis Office Visit 07/12/2017 [facility] Cherry M17.12 Unilateral primary 9:30a [facility] MD osteoarthritis, [place] left knee M25.562 Pain in left knee Office Visit 11/09/2016 [facility] Bog[facility] Cherry M17.12 Unilateral primary 9:45a [facility] MD osteoarthritis, left AT [place] knee M25.562 Pain in left knee Office Visit 03/11/2009 2:15a [facility] Fabian Vizcaino, [facility] [place] [facility] Chronic Not Class Elsewhere 473.9 Sinusitis Chronic Unspec Office Visit 03/10/2009 1:45a [facility], [facility] [place] [facility] Chronic Not Class Elsewhere Office Visit 03/09/2009 2:15a [facility], [address] [facility] M[facility] Chronic Not Class Elsewhere Office Visit 03/08/2009 4:15a [facility], [address] [facility] [place] [facility] Chronic Not Class Elsewhere Plan of Treatment 07/12/2017 - Bogdan Canales, MDM17.12 Unilateral primary osteoarthritis, left kneeFollow up:Follow up: As [id number] Pain in left knee
--- NOTE | 2018-04-15 15:17 | HP ---
CC: Kellie Fletcher DO; Dr. Vee REHABILITATION ADMISSION: DATE OF ADMISSION: 04/15/18 PRIMARY CARE PROVIDER: Kellie Fletcher DO. NEUROSURGEON: Dr. Vee. REASON FOR ADMISSION: Subdural hematoma. HISTORY OF PRESENT ILLNESS: This is a 72-year-old woman who was admitted to [facility] on 04/07/18 with reports of change in mental status. 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 A few days prior to admission she had fallen forward and hit her head anteriorly. She did not lose consciousness, but over the ensuing days started to be more confused and having trouble speaking clearly. CT of the head showed a large left-sided subdural hematoma with shift. She was seen emergently by Dr. Vee and taken to the OR on that same day for left frontal craniotomy. She was monitored in the ICU and put on Keppra for 7 days for seizure prophylaxis. She never did have a seizure. She was extubated on 04/08/18 and passed a swallow evaluation on 04/09. She has had issues with hypertension and has been put on additional medications to control that including as-needed hydralazine. Her drains were removed on 04/11/18 and subsequent scans had been stable. She developed a fever on 04/12/18. Chest x-ray showed some patchy atelectasis versus early consolidation of the left lung base. She was also noted to have some induration on her left arm at her IV site and urinalysis was questionable for UTI. Blood cultures were drawn and she was started on ceftriaxone 1 g q.24 hours. Blood cultures have been negative to date and her urine culture was also negative. She will be stopping ceftriaxone at the time of transfer. She has had increased insulin requirements and has increased her glargine from 15 units to 26 units daily. Prior to admission, she was independent with all mobility and self-care without any assistive devices. With physical therapy, she required contact guard assistance with a rolling walker to ambulate. With occupational therapy, she required maximum assistance for lower body dressing, and toileting and moderate to mild assistance for bathing. Speech noted that she had decreased insight, mild impairment of her language, and moderate impairment in her comprehension, attention, and memory. PAST MEDICAL HISTORY: 1. Diabetes mellitus. 2. Asthma. 3. Subdural hematoma, see history of present illness. CURRENT MEDICATIONS: 1. Lispro sliding scale insulin. 2. Lantus 26 units q.a.m. 3. Lipitor 20 mg q.h.s. 4. Lopressor 25 mg b.i.d. 5. MiraLAX 17 g b.i.d., which will be switched to daily. 6. Norvasc 10 mg daily. 7. Pepcid 20 mg daily for GI prophylaxis. 8. Senokot 1 tablet q.h.s. 9. Vasotec 10 mg daily. 10. Colace 100 mg daily, which will be switched to 200 mg b.i.d. 11. Tylenol 650 mg q.4 hours p.r.n. pain. ALLERGIES: PAROXETINE. FAMILY HISTORY: Mother coronary artery disease and diabetes. Brother depression. SOCIAL HISTORY: She lives [place] her farm with her son who has a mild traumatic brain injury. She has another son and his who live close by who are supportive and able to help her if needed. Her healthcare proxy is her son, Suresh Cerrato. His phone number is [phone]. Her rhxmxial-jh-atn is Carlita, phone number [phone]. She does not smoke. No regular alcohol. 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 Her home is multiple levels and there are 3 steps to enter. She may be able to stay with her son, Suresh, at discharge if needed. REVIEW OF SYSTEMS: See history of present illness and past medical history. The remainder of a 13-system review was completed. No other significant findings. PHYSICAL EXAMINATION GENERAL: Well developed, well nourished, appearing stated age. MENTAL STATUS: in no acute distress. Alert and appropriate. She has difficulty giving the correct date, although she is oriented to herself. She seems to know that she is giving wrong answers and is easily confused. VITAL SIGNS: Temperature 98.1, pulse 68, respirations 16, oxygen saturation 100 %, blood pressure 119/41. HEENT: Normocephalic. She has a clean, dry dressing over her left scalp to prevent her from touching the incision. Oropharynx clear. Moist mucous membranes. NECK: Supple. No lymphadenopathy. LUNGS: Clear to auscultation bilaterally. HEART: Regular rate and rhythm. ABDOMEN: Active bowel sounds. Soft, nontender, nondistended. EXTREMITIES: No clubbing, cyanosis, or edema. NEUROLOGIC: Cranial nerves II through XII are intact. Motor testing is 5/5 bilateral upper and lower extremities with normal sensation. SKIN: There is mild induration at prior IV sites, but there is no erythema or current warmth. DIAGNOSTIC STUDIES/LAB DATA: Yesterday, hemoglobin 10.5, hematocrit 31, white blood cells 5.9, platelets 262. Sodium 134, potassium 4.2, BUN 11, creatinine 0.63. Her fingersticks have ranged between 133 and 238 in the last 24 hours. IMPRESSION: A 72-year-old woman with subdural hematoma and traumatic brain injury. She will be admitted to [facility] so she can return to living with family support. PLAN: 1. Subdural hematoma. Continue to keep her incision covered as needed so that she does not touch the incision. Follow up with Dr. Vee. She has already completed 7 days of Keppra. Tylenol as needed for pain. 2. Hypertension. Continue with Norvasc, enalapril, and metoprolol. She will have hydralazine as needed for systolic blood pressure greater than 160. 3. Hyperlipidemia. Continue with atorvastatin, which was her home dose. 4. Asthma. Her son will bring in her home inhaler to use on an as-needed basis. She can also have available albuterol on an as-needed basis. 5. Diabetes mellitus. Consistent carbohydrate diet and continue with sliding scale insulin and adjusting Lantus as needed. We may consider restarting metformin, which her home dose was 1000 mg in the morning and 500 mg in the evening. 6. Gastrointestinal prophylaxis. Continue with Pepcid. 7. DVT prophylaxis. She can only use SCDs due to subdural hematoma. Chemical prophylaxis is contraindicated. 8. Advance directives. She is a full code. Her son, Suresh Scott, is her healthcare proxy if she cannot make decisions for herself. His phone number is [phone]. ESTIMATED LENGTH OF STAY: 10 to 14 days. [id number]/[facility] #: [id number] [facility]ALSherif
[2018-04-15] MEDS ORDERED: Insulin LISPRO* 1 UNITS UNIT SUBCUT SCH (16:30)
[2018-04-15] MEDS: Insulin LISPRO* 1 UNITS UNIT SUBCUT SCH ×2 (18:05→21:05)
[2018-04-15] MEDS ORDERED: Senna TAB PO SCH (21:00)
[2018-04-15] MEDS ORDERED: Atorvastatin* 20 MG TAB PO SCH (21:00)
[2018-04-15] MEDS: Docusate CAP* 100 MG PO SCH (21:05)
[2018-04-15] MEDS: Acetaminophen TAB* 325 MG PO PRN (21:06)
[2018-04-15] MEDS: Metoprolol Tartrate TAB* 25 MG PO SCH (21:48)
[2018-04-16] MEDS: Acetaminophen TAB* 325 MG PO PRN (06:04)
[2018-04-16 07:08] LABS: ABS Basophils 0 10^3/ul (0-0.2); ABS Eosinophils 0.3 10^3/ul (0-0.6); ABS Lymphocytes 1.4 10^3/ul (1.0-4.8); ABS Monocytes 0.5 10^3/ul (0-0.8); ABS Neutrophils 3.6 10^3/ul (1.5-7.7); ABS Nucleated RBC 0 10^3/ul; Eosinophil % 5.4 %; Hematocrit 30 % (35-47); Hemoglobin 10.3 g/dl (12.0-16.0); Lymphocyte % 24.1 %; Mean Corpuscular HGB Conc 34 g/dl (31-36); Mean Corpuscular Hemoglobin 30 pg (27-31); Mean Corpuscular Volume 87 fL (80-97); Mean Platelet Volume 8.7 fL (7.4-10.4); Nucleated Red Blood Cells % 0; Platelet Count 272 10^3/ul (150-450); Red Blood Count 3.47 10^6/ul (4.00-5.40); Red Cell Distribution Width 13 % (10.5-15); White Blood Count 5.9 10^3/ul (3.5-10.8)
[2018-04-16 07:32] LABS: Albumin 3.4 g/dL (3.2-5.2); Albumin/Globulin Ratio 1.3 (1-3); BUN/Creatinine Ratio 17.5 (8-20); Calcium 8.9 mg/dL (8.6-10.3); EGFR Non-African American 93.4 (>60); Globulin 2.7 g/dL (2-4); Potassium 4.2 mmol/L (3.5-5.0); Total Bilirubin 0.4 mg/dL (0.2-1.0); Total Protein 6.1 g/dL (6.4-8.9)
[2018-04-16 08:00] LABS: Activated Partial Thrombo Time 28.4 seconds (26.0-36.3); INR 1.01 (0.77-1.02)
[2018-04-16] MEDS ORDERED: Insulin GLARGINE(*) 1 UNITS UNIT SUBCUT SCH (08:00)
--- NOTE | 2018-04-16 08:08 | PN ---
Progress Note Date of Service: 04/16/18 Note: CORNELIO BRINK was visited. Nursing and therapy notes read and reviewed. She was seen by the neurosurgery PA yesterday afternoon and noted to have more aphasia. CT head was ordered with some progression of SDH. Dr. Vee reviewed images and saw her this morning. Staff reports consistent aphasia now, not intermittent. Dr. Vee spoke to the pt and son and she will be going back to the OR today for evacuation. She denies any pain. Last meal was dinner yesterday. Insulin and enalapril being held this morning and she will only get norvasc and metoprolol. No chest pain, shortness of breath or abdominal pain. Current Medications: Active Medications Generic Name Dose Route Start Last Admin Trade Name Freq PRN Reason Stop Dose Admin Acetaminophen 650 mg 04/15/18 12:57 04/16/18 06:04 Tylenol Tab* PO 650 mg Q4H PRN Administration FEVER > 101, pain Al Hydrox/Mg Hydrox/Simethicone 30 ml 04/15/18 12:57 Maalox Plus* PO Q6H PRN INDIGESTION Albuterol 2 puff 04/15/18 13:28 Ventolin Hfa Inhaler* INH Q4H PRN SOB/WHEEZING Amlodipine Besylate 10 mg 04/16/18 09:00 Norvasc Tab* PO DAILY SAMANTHA Atorvastatin Calcium 20 mg 04/15/18 21:00 04/15/18 21:05 Lipitor* PO 20 mg 2100 SAMANTHA Administration Bisacodyl 10 mg 04/15/18 12:57 Dulcolax Supp* GA DAILY PRN CONSTIPATION Dextrose 12.5 gm 04/15/18 13:07 D50w Syringe 50 Ml* IV PUSH .FOR FS < 60 - SS PRN FS < 60 Docusate Sodium 100 mg 04/15/18 21:00 04/15/18 21:05 Colace Cap* PO 100 mg BID SAMANTHA Administration Enalapril Maleate 10 mg 04/16/18 09:00 Vasotec Tab* PO DAILY SAMANTHA Famotidine 20 mg 04/16/18 09:00 Pepcid Tab* PO DAILY SAMANTHA Hydralazine HCl 10 mg 04/15/18 13:15 Apresoline Tab* PO Q6H PRN SBP >160 Insulin Glargine 26 units 04/16/18 08:00 Lantus(*) SUBCUT Q24H SAMANTHA Insulin Human Lispro 0 units 04/15/18 17:48 04/15/18 21:05 Humalog* SUBCUT 2 unit ACHS SAMANTHA Administration Protocol Magnesium Hydroxide 30 ml 04/15/18 12:57 Milk Of Magnamrit Liq* PO Q6H PRN CONSTIPATION Metoprolol Tartrate 25 mg 04/15/18 21:00 04/15/18 21:48 Lopressor Tab* PO 25 mg BID SAMANTHA Administration Polyethylene Glycol/Electrolytes 17 gm 04/16/18 09:00 Miralax* PO DAILY SAMANTHA Senna 1 tab 04/15/18 21:00 04/15/18 21:48 Senokot Tab* PO 1 tab BEDTIME SAMANTHA Administration Vital Signs: Vital Signs Temp Pulse Resp BP Pulse Ox 98.6 F 73 16 143/58 99 04/16/18 06:02 04/16/18 06:02 04/16/18 06:02 04/16/18 06:10 04/16/18 06:02 Lab Results: Laboratory Results - last 24 hr 04/15/18 04/15/18 04/16/18 16:30 20:22 06:52 WBC 5.9 RBC 3.47 L Hgb 10.3 L Hct 30 L MCV 87 MCH 30 MCHC 34 RDW 13 Plt Count 272 MPV 8.7 Neut % (Auto) 60.7 Lymph % (Auto) 24.1 [place] % (Auto) 9.0 Eos % (Auto) 5.4 Baso % (Auto) 0.8 Absolute Neuts (auto) 3.6 Absolute Lymphs (auto) 1.4 Absolute Monos (auto) 0.5 Absolute Eos (auto) 0.3 Absolute Basos (auto) 0 Absolute Nucleated RBC 0 Nucleated RBC % 0 INR (Anticoag Therapy) APTT Sodium Potassium Chloride Carbon Dioxide Anion Gap BUN Creatinine Est GFR ( Amer) Est GFR (Non-Af Amer) BUN/Creatinine Ratio Glucose POC Glucose (mg/dL) 213 H 151 H Calcium Total Bilirubin AST ALT Alkaline Phosphatase Total Protein Albumin Globulin Albumin/Globulin Ratio 04/16/18 04/16/18 04/16/18 06:52 07:41 07:46 WBC RBC Hgb Hct MCV MCH MCHC RDW Plt Count MPV Neut % (Auto) Lymph % (Auto) [place] % (Auto) Eos % (Auto) Baso % (Auto) Absolute Neuts (auto) Absolute Lymphs (auto) Absolute Monos (auto) Absolute Eos (auto) Absolute Basos (auto) Absolute Nucleated RBC Nucleated RBC % INR (Anticoag Therapy) 1.01 APTT 28.4 Sodium 136 Potassium 4.2 Chloride 104 Carbon Dioxide 26 Anion Gap 6 BUN 11 Creatinine 0.63 Est GFR ( Amer) 113.0 Est GFR (Non-Af Amer) 93.4 BUN/Creatinine Ratio 17.5 Glucose 114 H POC Glucose (mg/dL) 130 H Calcium 8.9 Total Bilirubin 0.40 AST 71 H ALT 89 H Alkaline Phosphatase 167 H Total Protein 6.1 L Albumin 3.4 Globulin 2.7 Albumin/Globulin Ratio 1.3 Exam: GEN: no acute distress. Alert and appropriate with complete expressive aphasia that is different than when I met her yesterday. LUNG: clear to auscultation bilaterally. CV: regular rate and rhythm ABD: active bowel sounds, soft, non-tender, non-distended EXT: no edema NEURO: CN II-XII intact but there is some drooping to her left eyelid. motor 5/ 5 BUE and BLE. Sensation intact x4. Some difficulty understanding commands for F to N. Assessment/Plan: 72yo woman with subdural hematoma #SDH: She will go back to the OR today and be readmitted to the hospital. Coags and type and screen drawn as requested by Dr. Vee. #Diabetes: insulin held this morning. She is NPO #Hypertension: holding enalapril this morning per Dr. Vee. Receiving norvasc and metoprolol. Has hydralazine as prn. #Asthma: her son was going to bring in her home MDI. #Advanced directives: full code. Son, Suresh Cerrato is HCP - [phone]. #Dispo: discharge to OR. 04/16/18 08:08
[2018-04-16] MEDS: Insulin LISPRO* 1 UNITS UNIT SUBCUT SCH (08:14)
--- NOTE | 2018-04-16 08:31 | PN ---
Progress Note - Progress Note Date of Service: 04/16/18 SOAP: Subjective: [] No events ON. In rehab. Tolerates PO well. OOB yesterday. Reported episodes of confusion that are more frequent now. Objective: []VSS, Afebrile Wound s,c,d AAOx1, JOCELINE, CN II-XII grossly intact Motor 4-5/5 Mild Right pronator drift. Sensory grossly intact to light touch Assessment: []72 yof sp Left craniotomy for SDH evacuation Plan: []Monitor VS, Neurochecks CT Brain yesterday revealed Left recurrent SDH with mild mass effect. Discussed over the phone in details with patient's son, daughter in law regarding patient's condition. Because of the decline in the mental status, a revision craniotomy was offered. After explaining expectations, limitation, and possible complications to the patient's family, with complications including but not limited to bleeding, infection, risk of injury to adjacent structures, coma, paralysis, , need for additional procedures, stroke , blindness, recurrence of hematoma, need for prolonged ICU stay, need for tracheostomy or gastrostomy, anesthesia risks, patient's son and daughter in law was in agreement and gave verbal consent. Formal IC will be obtained. The family understood that patient's condition may not improve and in fact may get worse after surgery and that operative plan may be modified according to intraoperative findings and conditions and that case may be abandoned or done in more than one stages. Keagan Vee MD
[2018-04-16] MEDS: Metoprolol Tartrate TAB* 25 MG PO SCH (08:50)
[2018-04-16] MEDS: Docusate CAP* 100 MG PO SCH (08:51)
[2018-04-16] MEDS ORDERED: Buffered Lidocaine 1% SYRIN* 1 ML/SYRINGE INTRADERM ONE (08:54)
[2018-04-16] MEDS ORDERED: Enalapril TAB* 5 MG PO SCH (09:00)
[2018-04-16] MEDS ORDERED: Famotidine TAB* 20 MG PO SCH (09:00)
[2018-04-16] MEDS ORDERED: Lactated Ringers 1000 ML Bag* 1,000 ML IV SCH (09:00)
[2018-04-16] MEDS ORDERED: amLODIPine TAB* 5 MG PO SCH (09:00)
[2018-04-16] MEDS ORDERED: Polyethylene Glycol 3350* 17 GM PACKET PO SCH (09:00)
--- NOTE | 2018-04-16 10:16 | DS ---
REHABILITATION DISCHARGE SUMMARY: DATE OF ADMISSION: 04/15/18 DATE OF DISCHARGE: 04/16/18 REASON FOR ADMISSION: Subdural hematoma. HISTORY OF PRESENT ILLNESS: For full details of her acute hospitalization leading up to her admissio n, please see the note dictated by myself on 04/15/18. REHABILITATION COURSE: During her brief time on the PMRU, she developed more consistent expressive a phasia. She was seen by the Neurosurgery PA, on the day of admission and had a repeat CT of the head , which showed slight progression of a left frontal subdural hematoma with shift. This morning, Dr. Vee did rounds with her and discussed with the staff her status. She had persistent expressiv e aphasia, which was different than her earlier postoperative course from her first craniotomy on 09/16. After discussing with the patient and the son, the decision was made for her to go back to [facility] OR for another evacuation and be readmitted to [facility]. There have been no other com plications. CURRENT MEDICATIONS: 1. Acetaminophen 650 mg q.4 hours p.r.n. 2. Albuterol 2 puffs q.4 hours p.r.n. shortness of breath or wheezing. 3. Norvasc 10 mg daily. 4. Atorvastatin 20 mg q.p.m. 5. Dulcolax 10 mg P.R. daily p.r.n. 6. Colace 100 mg p.o. b.i.d. 7. Enalapril 10 mg daily, which is being held this morning. 8. Pepcid 20 mg p.o. daily. 9. Hydralazine 10 mg p.o. q.6 hours p.r.n., systolic blood pressure greater than 160. 10. Lantus 26 units q.a.m., being held this morning. 11. Lispro sliding scale insulin, being held this morning. 12. Milk of magnesia p.r.n. 13. Metoprolol 25 mg p.o. b.i.d. 14. MiraLax 17 g p.o. daily. 15. Senna 1 tablet p.o. q.p.m. ALLERGIES: PAROXETINE. DISCHARGE CONDITION: Guarded. DISCHARGE DIAGNOSES: 1. Diabetes mellitus. 2. Hypertension. 3. Asthma. 4. Subdural hematoma. DISCHARGE DISPOSITION: Will be to the OR and under Dr. Vee' service. FOLLOWUP: Will be per Dr. Vee pending her clinical course. [id number]/[facility] #: [id number]
[2018-04-16] MEDS ORDERED: oxyCODONE TAB* 5 MG TAB PO PRN (11:52)
[2018-04-16] MEDS ORDERED: DiMENhydriNATE IV* 50 MG/ML VIAL IV PUSH PRN (11:52)
[2018-04-16] MEDS ORDERED: HYDROmorphone INJ1* 1 MG/ML SYRINGE IV PRN (11:52)
[2018-04-16] MEDS ORDERED: Naloxone* 0.4 MG/ML 1 ML VIAL IV PRN (11:52)
[2018-04-16] MEDS ORDERED: Acetaminophen TAB* 325 MG PO PRN (11:52)
[2018-04-16 13:51] VITALS: BP 146/70
== END 2018-04-16 10:00 | disposition short-term general hospital (02) | DRG 949 ==
LOC: PMRU 12:57
PROVIDERS: ADMIT Physical Medicine & Rehabilitation; ATTEND Physical Medicine & Rehabilitation
DX: Z48.89 Encounter for other specified surgical aftercare (principal); R47.01 Aphasia; S06.5X0D Traumatic subdural hemorrhage without loss of consciousness, subsequent encounter; W18.30XD Fall on same level, unspecified, subsequent encounter; E11.9 Type 2 diabetes mellitus without complications; I10 Essential (primary) hypertension; E78.5 Hyperlipidemia, unspecified; J45.909 Unspecified asthma, uncomplicated; Z79.1 Long term (current) use of non-steroidal anti-inflammatories (NSAID); Z79.4 Long term (current) use of insulin; Z79.899 Other long term (current) drug therapy; Z88.8 Allergy status to other drugs, medicaments and biological substances; Z82.49 Family history of ischemic heart disease and other diseases of the circulatory system; Z83.3 Family history of diabetes mellitus; Z81.8 Family history of other mental and behavioral disorders
CPT/HCPCS: 36415; 70450; 80053; 85025; 85610; 85730; 86850; 86900; 86901; 88300; A9270-GY; G0515-GO

== ENCOUNTER 2018-04-16 08:25 | Inpatient (IN) | payer MEDICARE ==
[2018-04-16] MEDS ORDERED: Propofol* 10 MG/ML 20 ML BTL ONE (09:00)
[2018-04-16] MEDS ORDERED: fentaNYL* 50 MCG/ML 2 ML VIAL (100 MCG VIAL) ONE (09:00)
[2018-04-16] MEDS ORDERED: Rocuronium* 10 MG/ML VIAL ONE (09:00)
[2018-04-16] MEDS ORDERED: levETIRAcetam 500 MG IVPREMIX* 500 MG/100 ML BAG IV ONE (09:00)
[2018-04-16] MEDS ORDERED: Thrombin 5,000 UNITS* 1 APPLIC KIT - topical use - TOPICAL ONE (09:05)
[2018-04-16] MEDS ORDERED: Lidocain 1% EPI 1:100,000 * 30 ML MDV ONE (09:05)
[2018-04-16] MEDS ORDERED: Bacitracin INJECTION* 50,000 UNITS ONE (09:05)
[2018-04-16] MEDS ORDERED: Phenylephrine 10 MG/ML VIAL* 1 ML VIAL ONE (09:11)
[2018-04-16] MEDS ORDERED: ceFAZolin 1 GM ADVAN(*) 1 GM ADDV.VIAL IVPB ONE (10:03)
[2018-04-16] MEDS ORDERED: ceFAZolin VIAL(*) VIAL ONE (11:06)
[2018-04-16] MEDS ORDERED: EPHEDrine (Pressors)* 50 MG/ML VIAL ONE (11:16)
[2018-04-16] MEDS ORDERED: Ondansetron INJ* 2 MG/ML VIAL ONE (11:54)
[2018-04-16] MEDS ORDERED: Ketorolac INJ* 30 MG/ML 1 ML VIAL ONE (11:54)
[2018-04-16] MEDS ORDERED: Dexamethasone IV* 4 MG/ML 1 ML (4 MG) ONE (11:54)
[2018-04-16] MEDS ORDERED: DiMENhydriNATE IV* 50 MG/ML VIAL IV PUSH PRN (14:07)
[2018-04-16] MEDS ORDERED: HYDROmorphone INJ1* 1 MG/ML SYRINGE IV PRN (14:07)
[2018-04-16] MEDS ORDERED: Acetaminophen IV 1GM/100ML * 1,000 MG/100 ML VIAL IVPB ONE (14:07)
[2018-04-16] MEDS ORDERED: fentaNYL* 50 MCG/ML 2 ML VIAL (100 MCG VIAL) IV PRN (14:07)
[2018-04-16] MEDS ORDERED: oxyCODONE TAB* 5 MG TAB PO PRN (14:07)
[2018-04-16] MEDS ORDERED: Naloxone* 0.4 MG/ML 1 ML VIAL IV PRN (14:07)
[2018-04-16] MEDS ORDERED: Acetaminophen IV 1GM/100ML * 100 ML ONE (14:08)
[2018-04-16] MEDS ORDERED: Docusate CAP* 100 MG PO PRN (14:54)
[2018-04-16] MEDS ORDERED: Bisacodyl SUPP* 10 MG SUPP PR PRN (14:54)
[2018-04-16] MEDS ORDERED: Senna TAB PO PRN (14:54)
[2018-04-16] MEDS ORDERED: Dextrose 50% Syringe 50 ML* 25 GM/50 ML SYRINGE IV PUSH PRN (14:54)
[2018-04-16] MEDS ORDERED: Polyethylene Glycol 3350* 17 GM PACKET PO PRN (14:54)
[2018-04-16] MEDS ORDERED: levETIRAcetam 500 MG IVPREMIX* 500 MG/100 ML BAG IV SCH (15:00)
[2018-04-16] MEDS ORDERED: Albuterol/Ipratropium NEB.SOL* Albuterol 2.5 MG/Ipratropium 0.5 MG 3 ML INH PRN (15:02)
--- NOTE | 2018-04-16 15:25 | HP ---
H&P (Free Text) History and Physical: [facility] History and Physical CC: Subdural hematoma HPI: 72F with htn, hld, dm2, asthma presents after recurrent subdural hematoma evacuation. 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 The patient came to the ER where she was found to have expressive aphasia. Head CT showed extensive left frontal subdural hematoma with midline shift. The patient was taken to the OR and had the blood evacuated. The patient was then discharged to acute rehab where she began to have worsening expressive aphasia. Repeat head CT was done yesterday showing persistent subdural collection. She was taken again to the OR where the contents were evacuated. 2 drains were left in place and she was transferred to the ICU for continued management. The patient currently is lethargic but arousable. She denies any complaints as this time. ROS - as per HPI PMHx - htn, hld, dm, asthma, SDH PSHx - subdural hematoma evacuation All - paroxetine SoxHx - no drugs/etoh/tobacco. 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 following commands. moving all extremities Labs wbc 5.9 hgb 10.3 plt 272 inr 1.01 sodium 136 potassium 4.2 chloride 104 co2 26 bun 11 cr 0.63 glu 114 ca 8[address] 04/15 Impression: 1. Postsurgical changes. 2. Subdural hematoma exerting mass effect on the left frontal lobe measuring 1.7c in greatest thickness, previously 1.6cm Impression 72F with htn, hld, dm2, asthma presents after recurrent subdural hematoma evacuation. Plan Neuro - recurrent SDH - s/p evacuation - keppra 500q12 x 7d - keep sbp < 140 - neurochecks - repeat head ct in am - monitor drain output - swallow eval - pain control CV - htn, hld - c/w norvasc/enalapril/metoprolol - c/w statin pulm - asthma - nebs q4h prn id - afebrile - wbc normal gi - npo until swallow eval renal - monitor i/o - monitor lytes - LR @ 75 until tolerating po heme - monitor cbc endo - dm - check fs - niss, lantus lines - piv ppx - [id number], scds full code Admit to ICU Case discussed with neurosurgery. Critical Care Time: 65 mins
[2018-04-16] MEDS: Morphine 4 MG/ML VIAL (1 ml) 4 MG/ML VIAL IV PRN ×2 (15:57→20:53)
[2018-04-16] MEDS: Lactated Ringers 1000 ML Bag* 1,000 ML IV SCH ×2 (16:57→23:08)
[2018-04-16] MEDS: Insulin LISPRO* 1 UNITS UNIT SUBCUT SCH ×2 (17:35→23:47)
[2018-04-16] MEDS: Atorvastatin* 20 MG TAB PO SCH (17:35)
[2018-04-16] MEDS: Ketorolac INJ* 15 MG/ML 1 ML VIAL IV PUSH PRN (20:03)
[2018-04-16] MEDS: levETIRAcetam 500 MG IVPREMIX* 500 MG/100 ML BAG IV SCH (20:53)
[2018-04-16] MEDS: Metoprolol Tartrate TAB* 25 MG PO SCH (21:48)
[2018-04-17] MEDS: Morphine 4 MG/ML VIAL (1 ml) 4 MG/ML VIAL IV PRN ×3 (00:24→20:01)
--- NOTE | 2018-04-17 04:07 | OP ---
DATE OF OPERATION: 04/16/18 - ROOM #ICU-06 DATE OF : 49 SURGEON: Melia Vee MD. ANESTHESIA: General. PRE-OP DIAGNOSIS: Left frontotemporoparietal subdural hematoma. POST-OP DIAGNOSIS: Left frontoparietal temporal subdural/epidural hematoma. OPERATIVE PROCEDURE: Patient underwent revision left frontotemporal parietal craniotomy, evacuation of subdural/epidural hematoma. ESTIMATED BLOOD LOSS: 50 cc. COMPLICATIONS: None. SUMMARY: The patient is a very pleasant 72-year-old female, who underwent left frontal temporoparietal craniotomy approximately 1 week ago for evacuation of subdural hematoma. The patient did very well clinically postoperatively with CT scan findings consistent with persistent subdural hematoma. Because of decline in her clinical condition with mild confusion, the patient was offered an option of surgical intervention for revision of the craniotomy after discussing in extent with the patient's family including with her son and [id number] and after explaining the expectations, limitations, and possible complications of the procedure with complications include, but not limited to, bleeding, infection, risk of injury to adjacent structures, coma, paralysis, , stroke, blindness, cancer, anesthesia risk, recurrence of hematoma, hydrocephalus, need for additional procedures, prolonged ICU stay, need for tracheostomy or gastrostomy, the patient's family were agreeable to proceed with surgery and informed consent was obtained. They understood that the patient's condition may not improve and in fact may get worse after surgery and in fact she may need to have additional procedures in the future. They also understood that operative plan may be modified according to the intraoperative findings and conditions and that the case may be abandoned or done in more than one stages. DESCRIPTION OF PROCEDURE: The patient was brought to the operating room and was placed under general anesthesia by the anesthesia team. She was carefully positioned supine with the left shoulder elevated with a shoulder bump and the head was turned and positioned on gel donut head worker. The previous incision was identified and the skin was prepared with removing of surgical clips as well as removal of the hair with clippers. The skin was prepped with Betadine in the standard fashion, and after appropriate surgical pause and patient identification, the previous incision was gently reopened with use of Metzenbaum scissors. Delvis clips were used to secure hemostasis at the wound edges and the previous sutures were cut, to expose the approximated temporalis muscle. The musculocutaneous flap was then gently elevated, then secured in place with the fish hooks. The screws securing the titanium plates on the scalp were gently removed and the skull flap was then elevated gently. A small amount of epidural hematoma was found and it was gently evacuated with use of irrigation and gentle suction. Then the attention was brought to inspect the subdural space. Metzenbaum scissors was used to cut the 4-0 Nurolon sutures that were approximating the dura and mixed density subdural hematoma was then encountered. This was gently removed with use of irrigation and gentle suction. The exposed brain was found to be pulsating nicely after the decompression from the hematoma and after meticulous hemostasis, copious irrigation and meticulous inspection, a small Juan Antonio drain was tunneled through a separate stab wound incision and was left into the subdural space. 4-0 Nurolon sutures were then used to approximate the dura. The bone flap was then repositioned and secured in place with titanium plates and screws. After copious irrigation and meticulous hemostasis and meticulous inspection, the musculocutaneous flap was then closed over a separate Juan Antonio drain placed in the subgaleal space and tunneled through a separate stab wound incision. The temporalis muscle was gently approximated with 2- 0 Vicryl sutures and the subcutaneous tissue was approximated with interrupted 2-0 Vicryl sutures and the skin was approximated with mick. At the end of the procedure, all counts were reported to be correct. The patient remained hemodynamically stable throughout the case. At the end of the procedure, the patient was extubated and was transferred to the Recovery in excellent condition, moving all extremities well, symmetrically, and following commands. [id number]/[facility] #: [id number] SANTO
[2018-04-17 05:15] LABS: ABS Basophils 0 10^3/ul (0-0.2); ABS Eosinophils 0 10^3/ul (0-0.6); ABS Lymphocytes 1.2 10^3/ul (1.0-4.8); ABS Monocytes 0.6 10^3/ul (0-0.8); ABS Neutrophils 6.2 10^3/ul (1.5-7.7); ABS Nucleated RBC 0 10^3/ul; Eosinophil % 0.2 %; Hematocrit 32 % (35-47); Hemoglobin 10.8 g/dl (12.0-16.0); Lymphocyte % 14.7 %; Mean Corpuscular HGB Conc 34 g/dl (31-36); Mean Corpuscular Hemoglobin 30 pg (27-31); Mean Corpuscular Volume 88 fL (80-97); Mean Platelet Volume 8.6 fL (7.4-10.4); Nucleated Red Blood Cells % 0.1; Platelet Count 314 10^3/ul (150-450); Red Blood Count 3.62 10^6/ul (4.00-5.40); Red Cell Distribution Width 13 % (10.5-15)
[2018-04-17 05:20] LABS: INR 0.98 (0.77-1.02)
[2018-04-17 05:32] LABS: Albumin 3.8 g/dL (3.2-5.2); Albumin/Globulin Ratio 1.5 (1-3); Calcium 9.4 mg/dL (8.6-10.3); EGFR African American 117.3 (>60); Globulin 2.6 g/dL (2-4); Indirect Bilirubin 0.4 mg/dL (0.3-1.0); Magnesium 2.2 mg/dL (1.9-2.7); Potassium 4.5 mmol/L (3.5-5.0); Total Bilirubin 0.5 mg/dL (0.2-1.0); Total Protein 6.4 g/dL (6.4-8.9)
[2018-04-17] MEDS: Ketorolac INJ* 15 MG/ML 1 ML VIAL IV PUSH PRN ×3 (05:32→21:38)
[2018-04-17] MEDS: Insulin LISPRO* 1 UNITS UNIT SUBCUT SCH ×4 (05:36→21:46)
[2018-04-17] MEDS: Acetaminophen TAB* 325 MG PO PRN (10:12)
[2018-04-17] MEDS: Famotidine TAB* 20 MG PO SCH (10:12)
[2018-04-17] MEDS: Enalapril TAB* 5 MG PO SCH (10:13)
[2018-04-17] MEDS: amLODIPine TAB* 5 MG PO SCH (10:13)
[2018-04-17] MEDS: Metoprolol Tartrate TAB* 25 MG PO SCH ×2 (10:13→21:35)
[2018-04-17] MEDS: levETIRAcetam 500 MG IVPREMIX* 500 MG/100 ML BAG IV SCH ×2 (10:14→20:01)
--- NOTE | 2018-04-17 12:12 | PN ---
Progress Note - Progress Note Date of Service: 04/17/18 SOAP: Subjective: []No events ON. Tolerated procedure well yesterday. NPO. Carmona. In ICU Objective: []VSS, Afebrile Wound s,c,d. Min drainage from Subdural drain. Subgaleal drainage noted. AAOx3, occasional expressive dysphasia with preserveration. JOCELINE, CNII-XII grossly intact Motor 5/5 all extremities, No pronator drift Sensory grossly intact to light touch Assessment: []72 yof POD#1 revision craniotomy for SDH evacuation Plan: []Monitor VS, Neurochecks Monitor drain output. CT brain revealed excellent evacuation of hematoma. No midline shift. Advance diet. DC carmona OOB with subdural drain clamped for meals, bedside commode. IS Appreciate ICU care. Keagan Vee MD
--- NOTE | 2018-04-17 13:00 | PN ---
Date of Service: 04/17/18 Critical Care Services: Is awake and appears comfortable but does have problems with verbal communication (expressive aphasia) Vital Signs: Temp Pulse Resp BP SpO2 FiO2 98.9 F 66 16 90/65 95 Physical Exam: Gen:Awake and appears comfortable. HEENT:Pupils midposition and reactive. No facial asymmetry Lungs:Clear Cardiac: No murmurs Extremities:No cyanosis or edema. Neuro: Difficulty with verbal response to commands but no with nonverbal responses. Fluid Balance (Past 24 Hours): 04/17/18 06:59 Intake Total 1542 Output Total 1020 Balance 522 Weight 130 lb Intake: IV Fluids 1542 2 GM ANCEF 60 LR 938 NS (0.9%) 544 Oral Output: CARLOS #1 115 Simmons 855 Estimated Blood Loss 50 Labs: 04/16/18 04/16/18 04/17/18 17:31 23:41 05:00 Sodium 137 Potassium 4.5 Chloride 103 Carbon Dioxide 25 Anion Gap 9 BUN 14 Creatinine 0.61 Glucose 147 H POC Glucose (mg/dL) 266 H 195 H Calcium 9.4 Magnesium 2.2 Total Bilirubin 0.50 Direct Bilirubin 0.10 Indirect Bilirubin 0.4 AST 25 ALT 65 H Alkaline Phosphatase 151 H Total Protein 6.4 Albumin 3.8 04/17/18 04/17/18 05:00 05:00 WBC 8.0 RBC 3.62 L Hgb 10.8 L Hct 32 L MCV 88 MCH 30 MCHC 34 Plt Count 314 INR (Anticoag Therapy) 0.98 Studies: 1. Head CT scan - No evidence of reaccumulation of blood. 2. Swallow evaluation -No dysfunction or evidence of aspiration. Nutrition: None today (so far) Impression: Satisfactory postop course - has residual expressive aphasia. Plan: 1. Start a regular diet 2. D/C Simmons catheter 3. Keep head of bed elevated to at least 30 degrees. 4. Patient can get up from bed to commode. Critical Care Time: 35 minutes
[2018-04-17] MEDS: Atorvastatin* 20 MG TAB PO SCH (17:40)
[2018-04-18] MEDS: Morphine 4 MG/ML VIAL (1 ml) 4 MG/ML VIAL IV PRN (01:06)
[2018-04-18] MEDS: Insulin LISPRO* 1 UNITS UNIT SUBCUT SCH ×4 (07:41→21:10)
[2018-04-18] MEDS: levETIRAcetam 500 MG IVPREMIX* 500 MG/100 ML BAG IV SCH ×2 (07:42→21:09)
[2018-04-18] MEDS: Metoprolol Tartrate TAB* 25 MG PO SCH ×2 (07:42→21:06)
[2018-04-18] MEDS: Famotidine TAB* 20 MG PO SCH (07:42)
[2018-04-18] MEDS: Enalapril TAB* 5 MG PO SCH (07:42)
[2018-04-18] MEDS: amLODIPine TAB* 5 MG PO SCH (07:42)
[2018-04-18] MEDS: Acetaminophen TAB* 325 MG PO PRN ×2 (08:16→16:50)
[2018-04-18] MEDS: Atorvastatin* 20 MG TAB PO SCH (16:50)
--- NOTE | 2018-04-18 17:24 | PN ---
Date of Service: 04/18/17 Critical Care Services: Patient continues to improve - receptive aphasia much less pronounced today. No specific complaints. Vital Signs: Temp Pulse Resp BP SpO2 FiO2 99 F 62 17 130/62 94 96 Physical Exam: Gen:Alert and conversant. HEENT: Pupils midpositiona nd reactive. No facial asymmetry Lungs:Clear Cardiac: reg rhythm Extremities:No cyanosis or edema. Neuro: Move all extremities equally. Fluid Balance (Past 24 Hours): 04/18/18 06:59 Intake Total 2793 Output Total 821 Balance 1972 Weight 136 lb Intake: IV Fluids 595 2 GM ANCEF LR 595 NS (0.9%) IVPB 98 LR 98 Medicated IV 100 keppra 100 Oral 2000 Output: CARLOS #1 120 Pigtail Drain Urine 0 Simmons 650 Straight Cath 1 Estimated Blood Loss 50 Other: Estimated Void Medium # Voids 0 Labs: 04/17/18 04/18/18 21:20 07:33 POC Glucose (mg/dL) 228 H 200 H Studies: None today Nutrition: Oral diet. Intake good. Impression: 1. Doing well clinically, with minimal drainage from both drains (subdural and subQ) 2. POC glucoses have been high, but there has been poor correlation with standard blood glucose. Plan: 1. Recheck blood glucose by the standard method. 2. Transfer out of ICU when drains can be pulled.
[2018-04-18] MEDS: traMADol TAB* 50 MG PO PRN (19:24)
--- NOTE | 2018-04-18 21:36 | PN ---
Progress Note - Progress Note Date of Service: 04/18/18 SOAP: Subjective: []No events ON. Tolerates PO. Ambulated to BTR. In ICU Objective: []VSS, Afebrile Wound s,c,d. Drains output noted. Drains were removed. catheters appeared to be intact. Patient tolerated procedure well. AAOx3, dysphasia almost resolved. JOCELINE, CNII-XII grossly intact Motor 5/5 all extremities, No pronator drift Sensory grossly intact to light touch Assessment: []72 yof POD#2 revision craniotomy for SDH evacuation Plan: [] Monitor VS, Neurochecks CT brain in am. OOB with assistance. Fall [recautions PT IS Transfer to floor if CT stable. Appreciate ICU care. Keagan Vee MD
[2018-04-19] MEDS: traMADol TAB* 50 MG PO PRN (06:40)
[2018-04-19 07:05] LABS: Potassium 4.3 mmol/L (3.5-5.0)
[2018-04-19 07:11] LABS: Calcium 9.2 mg/dL (8.6-10.3)
[2018-04-19 07:22] LABS: EGFR African American 119.6 (>60); EGFR Non-African American 98.8 (>60)
[2018-04-19] MEDS: Insulin LISPRO* 1 UNITS UNIT SUBCUT SCH ×4 (08:41→22:36)
[2018-04-19] MEDS: Famotidine TAB* 20 MG PO SCH (08:41)
[2018-04-19] MEDS: amLODIPine TAB* 5 MG PO SCH (08:41)
[2018-04-19] MEDS: Enalapril TAB* 5 MG PO SCH (08:41)
[2018-04-19] MEDS: Metoprolol Tartrate TAB* 25 MG PO SCH ×2 (08:41→22:35)
[2018-04-19] MEDS: levETIRAcetam 500 MG IVPREMIX* 500 MG/100 ML BAG IV SCH (09:21)
--- NOTE | 2018-04-19 14:27 | PN ---
Date of Service: 04/19/18 Critical Care Services: Mental status continues to improve. No overt signs of aphasia this AM. Both drains (subdural and subQ) have been pulled. Vital Signs: Temp Pulse Resp BP SpO2 FiO2 99.5 F 62 15 103/47 94 96 Physical Exam: Gen:Awake and responds appropriately (including verbal responses). HEENT: No facial asymmetry Lungs: clear Cardiac: Reg rhythm Extremities: No cyanosis or edema. Fluid Balance (Past 24 Hours): 04/19/18 06:59 Intake Total 1633 Output Total 3205 Balance -1572 Weight 130 lb Intake: IV Fluids LR NS (0.9%) IVPB LR Medicated IV 423 NS 0.9% keppra 423 Oral 1210 Output: CARLOS #1 5 Pigtail Drain 50 Urine 2950 Simmons 200 Labs: 04/19/18 04/19/18 04/19/18 06:22 08:19 12:44 Sodium 134 L Potassium 4.3 Chloride 101 Carbon Dioxide 27 Anion Gap 6 BUN 12 Creatinine 0.60 Est GFR ( Amer) 119.6 Est GFR (Non-Af Amer) 98.8 BUN/Creatinine Ratio 20.0 Glucose 157 H POC Glucose (mg/dL) 179 H 282 H Calcium 9.2 Studies: Head CT scan - minimal residual blood - no change from last CT scan. Nutrition: Consistent carb diet Impression: Continues to improve. No evidence of recurrent bleeding by CT scan. Plan: Transfer out of ICU for ambulation and more aggressive physical therapy
[2018-04-19] MEDS: Atorvastatin* 20 MG TAB PO SCH (17:26)
--- NOTE | 2018-04-19 19:20 | PN ---
Progress Note - Progress Note Date of Service: 04/19/18 SOAP: Subjective: []No events ON. Tolerates PO. Ambulates. On regular floor. Objective: []VSS, Afebrile Wounds s,c,d. AAOx3, dysphasia resolved. JOCELINE, CNII-XII grossly intact Motor 5/5 all extremities, No pronator drift Sensory grossly intact to light touch Assessment: []72 yof POD#3 revision craniotomy for SDH evacuation Plan: []Monitor VS, Neurochecks CT brain stable OOB with assistance. Fall precautions PT IS DC planning. IM consult Appreciate ICU care. Keagan Vee MD
[2018-04-19] MEDS: levETIRAcetam TAB* 500 MG PO SCH (22:35)
[2018-04-19] MEDS: Acetaminophen TAB* 325 MG PO PRN (22:59)
[2018-04-20] MEDS: Insulin LISPRO* 1 UNITS UNIT SUBCUT SCH ×4 (08:44→22:10)
[2018-04-20] MEDS: Enalapril TAB* 5 MG PO SCH (08:45)
[2018-04-20] MEDS: Metoprolol Tartrate TAB* 25 MG PO SCH ×2 (08:46→20:57)
[2018-04-20] MEDS: levETIRAcetam TAB* 500 MG PO SCH ×2 (08:46→20:57)
[2018-04-20] MEDS: Famotidine TAB* 20 MG PO SCH (08:46)
[2018-04-20] MEDS: amLODIPine TAB* 5 MG PO SCH (08:46)
[2018-04-20] MEDS: Acetaminophen TAB* 325 MG PO PRN ×2 (08:47→20:57)
--- NOTE | 2018-04-20 15:43 | PN ---
Subjective Date of Service: 04/20/18 Interval History: Ms. Scott is feeling well today. She offers no complaints. Does admit to 1-2 headaches per day lasting approx 1 hour which do not require medication and resolve spontaneously. She denies CP, SOB, N/V, dizziness, changes in vision. Nursing reports that her gait is quite unsteady without a walker, but she does well with a walker. Family History: Unchanged from Admission Social History: Unchanged from Admission Past Medical History: Unchanged from Admission Objective Active Medications: Acetaminophen (Tylenol Tab*) 650 mg PO Q6H PRN PAIN Albuterol/Ipratropium (Duoneb (Albuterol 2.5 Mg/Ipratropium 0.5 Mg)) 1 neb INH Q4H PRN SOB/WHEEZING Amlodipine Besylate (Norvasc Tab*) 10 mg PO DAILY SAMANTHA Atorvastatin Calcium (Lipitor*) 20 mg PO 1700 SAMANTHA Bisacodyl (Dulcolax Supp*) 10 mg HI DAILY PRN CONSTIPATION Dextrose (D50w Syringe 50 Ml*) 12.5 gm IV PUSH .FOR FS < 60 - SS PRN FS < 60 Docusate Sodium (Colace Cap*) 100 mg PO BID PRN CONSTIPATION Enalapril Maleate (Vasotec Tab*) 10 mg PO DAILY [facility]ANTHA Famotidine (Pepcid Tab*) 20 mg PO DAILY [facility] Insulin Human Lispro (Humalog*) 0 units SUBCUT ACHS SAMANTHA; Protocol Levetiracetam (Keppra Tab*) 500 mg PO BID [facility] Metoprolol Tartrate (Lopressor Tab*) 25 mg PO BID SAMANTHA Senna (Senokot Tab*) 1 tab PO BEDTIME PRN CONSTIPATION Tramadol HCl (Ultram*) 50 mg PO Q8H PRN PAIN Vital Signs - 8 hr 04/20/18 04/20/18 04/20/18 08:00 11:16 15:19 Temperature 97.8 F 97.8 F Pulse Rate 52 55 Respiratory 18 18 17 Rate Blood Pressure 114/44 117/41 (mmHg) O2 Sat by Pulse 100 97 Oximetry Oxygen Devices in Use Now: None Appearance: Elderly female sitting in chair in NAD Eyes: No Scleral Icterus Ears/Nose/Mouth/Throat: Mucous Membranes Moist Neck: NL Appearance and Movements; NL JVP, Trachea Midline Respiratory: Symmetrical Chest Expansion and Respiratory Effort, Clear to Auscultation Cardiovascular: NL Sounds; No Murmurs; No JVD, RRR Abdominal: NL Sounds; No Tenderness; No Distention Extremities: No Edema Skin: No Rash or Ulcers, - - Dressing intact to left head Neurological: Alert and Oriented x 3 Lines/Tubes/Other Access: Clean, Dry and Intact Peripheral IV Nutrition: Taking PO's Result Diagrams: 04/17/18 05:00 04/19/18 06:22 Assess/Plan/Problems-Billing Assessment: Ms. Scott is a 72 yo F with PMH of HTN, HLD, DM, and asthma who sustained a fall in Mar 2018 then presented to [facility] with changes in speech and was found to have a subdural hematoma, s/p craniotomy and evacuation. She was admitted from - 04/15/18 then was d/c'd to [facility]. On 04/16/18 she was noted to have increased aphasia and was found to have a large subdural hematoma with midline shift. She was taken to the OR on 04/16/18 for a revision craniotomy and evacuation then admitted to ICU. Transferred to [facility] on 04/19/18. - Patient Problems (1) Subdural hematoma, post-traumatic Code(s): S06.5X9A - TRAUM SUBDR HEM W LOC OF UNSP DURATION, INIT Comment: - POD #4 revision craniotomy and evacuation - Secondary to mechanical fall in Mar 2018; s/p evacuation 04/08/18 and again on - Management per Neurosurgery (2) Diabetes Code(s): E11.9 - TYPE 2 DIABETES MELLITUS WITHOUT COMPLICATIONS Comment: - Excellent control, A1c 6.8% - Hold metformin - Resume Lantus (decreased dose); continue Lispro SS (3) HTN (hypertension) Code(s): I10 - ESSENTIAL (PRIMARY) HYPERTENSION Comment: - SBP 110-150s - Hold enalapril - Continue metoprolol, amlodipine (4) HLD (hyperlipidemia) Code(s): E78.5 - HYPERLIPIDEMIA, UNSPECIFIED Comment: - Continue atorvastatin (5) Asthma Code(s): J45.909 - UNSPECIFIED ASTHMA, UNCOMPLICATED Comment: - Not in exacerbation - Start Dulera (sub for Symbicort); continue nebs PRN (6) DVT prophylaxis Comment: - SCDs (7) Full code status Code(s): Z78.9 - OTHER SPECIFIED HEALTH STATUS Comment: Status and Disposition: Inpatient. Dispo per Neurosurgery. Possible need for JENNIFER. Attending: Flakita England
--- NOTE | 2018-04-20 16:00 | PN ---
Progress Note - Progress Note Date of Service: 04/20/18 SOAP: Subjective: [] No events ON. Tolerates PO. Ambulates. On regular floor. Feels better. Doing well with walker and PT Objective: []VSS, Afebrile Wounds s,c,d. AAOx3. JOCELINE, CNII-XII grossly intact Motor 5/5 all extremities, No pronator drift Sensory grossly intact to light touch Assessment: []72 yof POD#4 revision craniotomy for SDH evacuation Plan: []Monitor VS, Neurochecks OOB with assistance. Fall precautions PT IS DC planning. Appreciate IM care. Keagan Vee MD .
[2018-04-20] MEDS ORDERED: Insulin GLARGINE(*) 1 UNITS UNIT SUBCUT SCH (17:00)
[2018-04-20] MEDS: Atorvastatin* 20 MG TAB PO SCH (17:07)
[2018-04-20] MEDS: Mometasone/Formoter 200/5 MDI INH SCH (20:28)
[2018-04-21 05:42] LABS: ABS Basophils 0 10^3/ul (0-0.2); ABS Eosinophils 0.5 10^3/ul (0-0.6); ABS Lymphocytes 1.8 10^3/ul (1.0-4.8); ABS Monocytes 0.4 10^3/ul (0-0.8); ABS Neutrophils 4.5 10^3/ul (1.5-7.7); ABS Nucleated RBC 0 10^3/ul; Eosinophil % 6.4 %; Hematocrit 30 % (35-47); Hemoglobin 10.3 g/dl (12.0-16.0); Lymphocyte % 24.5 %; Mean Corpuscular HGB Conc 34 g/dl (31-36); Mean Corpuscular Hemoglobin 30 pg (27-31); Mean Corpuscular Volume 88 fL (80-97); Mean Platelet Volume 8.4 fL (7.4-10.4); Nucleated Red Blood Cells % 0; Platelet Count 363 10^3/ul (150-450); Red Blood Count 3.46 10^6/ul (4.00-5.40); Red Cell Distribution Width 13 % (10.5-15); White Blood Count 7.2 10^3/ul (3.5-10.8)
[2018-04-21 05:57] LABS: BUN/Creatinine Ratio 16.4 (8-20); Calcium 9.5 mg/dL (8.6-10.3); EGFR African American 105.3 (>60); Potassium 4.5 mmol/L (3.5-5.0)
[2018-04-21] MEDS: Insulin LISPRO* 1 UNITS UNIT SUBCUT SCH ×2 (09:14→13:00)
[2018-04-21] MEDS: Enalapril TAB* 5 MG PO SCH (09:16)
[2018-04-21] MEDS: amLODIPine TAB* 5 MG PO SCH (09:17)
[2018-04-21] MEDS: levETIRAcetam TAB* 500 MG PO SCH (09:17)
[2018-04-21] MEDS: Famotidine TAB* 20 MG PO SCH (09:17)
[2018-04-21] MEDS: Metoprolol Tartrate TAB* 25 MG PO SCH (09:17)
[2018-04-21] MEDS: Mometasone/Formoter 200/5 MDI INH SCH (10:39)
[2018-04-21 11:30] VITALS: BP 109/42
[2018-04-21] MEDS ORDERED: Insulin LISPRO* 1 UNITS UNIT SUBCUT ONE (12:51)
--- NOTE | 2018-04-21 14:19 | PN ---
Progress Note - Progress Note Date of Service: 04/21/18 SOAP: Subjective: []Patient seen earlier today. No events ON. Tolerates PO. Ambulates. On regular floor. Wants to go home. Objective: []VSS, Afebrile Wounds s,c,d. AAOx3. JOCELINE, CNII-XII grossly intact Motor 5/5 all extremities, No pronator drift Sensory grossly intact to light touch Assessment: []72 yof POD#5 revision craniotomy for SDH evacuation Plan: Monitor VS, Neurochecks OOB with assistance. Fall precautions Encourage ambulation. PT IS DC planning. Eval for rehab placement. Appreciate IM care. Keagan Vee MD
--- NOTE | 2018-04-21 19:41 | DS ---
CC: Dr. Kellie Fletcher; Dr. Vee * DISCHARGE SUMMARY: DATE OF ADMISSION: 04/16/18 DATE OF DISCHARGE: 04/21/18 PRIMARY CARE PROVIDER: Dr. Kellie Fletcher. NEUROSURGEON: Dr. Vee. ATTENDING PHYSICIAN: Dr. Stefano Barnett * (dictated by Sheryl Molina NP). PRIMARY DIAGNOSIS: Posttraumatic subdural hematoma causing compression, status post revision craniotomy and evacuation. SECONDARY DIAGNOSES: 1. Diabetes mellitus, type 2. 2. Hypertension. 3. Hyperlipidemia. 4. Asthma. STUDIES WHILE IN THE HOSPITAL: 1. Brain CT on 04/17/18, reads as the patient is status post left frontal craniotomy with evacuation of an extraaxial blood collection. The subdural drain has been in place. No significant subfalcine shift. No obstructive hydrocephalus. 2. Brain CT on 04/19/18, reads as postsurgical change of a small amount of residual subdural fluid beneath the craniotomy similar to the previous examination. There is no shift. HISTORY OF PRESENT ILLNESS AND HOSPITAL COURSE: Ms. 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 She was admitted to this facility from to 04/15/18 and underwent a craniotomy and evacuation of the subdural hematoma on 04/08/18. The patient was discharged to [facility] here at [facility]. Please see the history and physical by Dr. Self for complete summary of the events leading up to this hospitalization, but in short , the patient spent 1 day in [facility]. When she was noted to have worsening expressive aphasia, she had a repeat head CT done, which showed a persistent subdural collection. Ultimately, she was readmitted as an inpatient and on underwent a revision craniotomy and evacuation. Two drains were placed at that time and the patient was admitted to the intensive care unit for continued monitoring. The day following surgery, the patient was noted to still have some expressive aphasia. Though on 04/18/18, her expressive aphasia seemed to have markedly improved. Ultimately on 04/19/18, the patient had both drains removed and was transferred out of the ICU to short-stay surgical. She continued to improve and her aphasia is essentially resolved at this point. She has been followed closely by Dr. Vee who had no concerns with her progress. She has been seen by a Physical Therapy, Occupational Therapy and Speech Therapy during this hospitalization and it was noted by Physical Therapy and Occupational Therapy that she does have acute needs. The patient was again evaluated by [facility] and they accepted her. As of today, Dr. Vee has seen the patient this morning and has no further concerns. She has a dry sterile dressing intact to her left head. Her speech is clear and there is no evidence of aphasia. I have not personally seen her walk, though according to nursing, she has a quite unsteady gait when she is not using a walker. I spoke with BLADE Thomas with Neurosurgery and she confirmed that the patient was clear from a neurosurgical standpoint to return to [facility]. I will note that the patient has been started on Keppra for seizure prophylaxis and Gisele recommended that this be continued indefinitely until she follows up with Neurosurgery as an outpatient. The patient is feeling well and is motivated to go back to rehab, so that she is eventually able to return home. Ms. Scott is stable for discharge today. Vital signs are as follows: Temp 98.0 , heart rate 61, respiratory rate 16, oxygen saturation 100% on room air, blood pressure 109/42. DISCHARGE MEDICATIONS: New Medications: 1. Acetaminophen 650 mg p.o. q.6 hours p.r.n. fever or pain. 2. Amlodipine 10 mg p.o. daily. 3. Keppra 500 mg p.o. b.i.d. 4. Tramadol 50 mg p.o. q.8 hours p.r.n. pain. Changed medications: 1. Glargine 15 units subcu daily (previously was 26 units). Continued medications: 1. Albuterol MDI 2 puffs q.4 hours p.r.n. shortness of breath. 2. Atorvastatin 20 mg p.o. at bedtime. 3. Symbicort 80/4.5 two puffs b.i.d. 4. Docusate 100 mg p.o. daily p.r.n. constipation. 5. Enalapril 10 mg p.o. daily. 6. Famotidine 20 mg p.o. daily. 7. Metformin 500 mg p.o. in the evening. 8. Metformin 1000 mg p.o. in the morning. 9. Metoprolol tartrate 25 mg p.o. b.i.d. 10. Ondansetron 4 to 8 mg p.o. b.i.d. p.r.n. nausea and vomiting. 11. MiraLAX 17 g p.o. daily. 12. Senna 1 tab p.o. at bedtime. 13. Lispro sliding scale (for a blood glucose of 131 to 150 get 1 unit, for 151 to 200 get 2 units, for 201 to 250 get 4 units, for 251 to 300 get 6 units, for 301 to 350 get 8 units, for 351 to 400 get 10 units). DISCHARGE PLAN: Ms. Scott will be discharged to [facility] here at [facility]. Activity will be as tolerated. Diet will be consistent carb. Medications are noted above. The patient can continue her usual medications. I will note that her glargine dosing has been decreased, though this may ultimately need to be increased based on her blood glucose. Again, as noted above, the patient has been started on Keppra for seizure prophylaxis. According to Neurosurgery, she should continue to take this until further instructed by Neurosurgery. She will need to follow up with Neurosurgery in 1 to 2 weeks and should follow up with her primary care provider after discharge from [facility]. The patient should return to the emergency room for any worsening of symptoms, shortness of breath, lightheadedness, dizziness, chest discomfort, high fevers, chills, night sweats, loss of consciousness, or any other worrisome signs or symptoms. This is a summarized report of a complex medical history and hospital stay. For further details, please see the entire medical record. TIME SPENT: Approximately 40 minutes was spent on this discharge. SHERYL MOLINA, FIELD SOFTWARE ENGINEER [id number]/[facility] #: [id number] SANTO
== END 2018-04-21 12:40 | DRG 26 ==
LOC: OR 08:25 → ICU 09:00 → SSU 04-19 15:50
PROVIDERS: ADMIT Neurological Surgery; ATTEND Neurological Surgery
PROC: 00C30ZZ Extirpation of Matter from Intracranial Epidural Space, Open Approach (ICD-10-PCS; principal; 2018-04-16 10:00)
DX: S06.5X0A Traumatic subdural hemorrhage without loss of consciousness, initial encounter (principal); R47.01 Aphasia; I10 Essential (primary) hypertension; E78.5 Hyperlipidemia, unspecified; E11.9 Type 2 diabetes mellitus without complications; R41.0 Disorientation, unspecified; J45.909 Unspecified asthma, uncomplicated
CPT/HCPCS: 36415; 70450; 80048; 80076; 82947; 83735; 85025; 85610; 94640; A9270-GY; C1776; G8978-GP-CM; G8979-GP-CI; G8987-GO-CI; G8988-GO-CI; J0690; J1100; J1885; J2270; J2405; J2704; J3010

== ENCOUNTER 2018-04-21 11:26 | Inpatient (IN) | payer MEDICARE ==
[2018-04-21] MEDS ORDERED: Senna TAB PO PRN (14:25)
[2018-04-21] MEDS ORDERED: Magnesium Hydroxide LIQ* 30 ML UDC PO PRN (14:25)
[2018-04-21] MEDS ORDERED: Dextrose 50% Syringe 50 ML* 25 GM/50 ML SYRINGE IV PUSH PRN (14:34)
--- NOTE | 2018-04-21 15:02 | PMRUTEAM ---
PMRU: Team Meeting Current Status: Physical Therapy: Current Status Bed Mobility Assistance Supervision Transfer Mobility Assistance Supervision Ambulation Assistance Min Assist Ambulation Assistive Devices None Stairs Assistance Supervision Stairs Recommended Devices Two Rails Number of Stairs 12 Occupational Therapy: Current Status Upper Body Dressing Supervision Lower Body Dressing Supervision Bathing Supervision Toileting Supervision Toilet Transfer Supervision Shower Transfer Supervision Eating Independent Rec Therapy: Current Status Summary of Assessment and Pt. was open to conversation, pt.'s ex was in the Clinical Impression room as well. Pt. states she enjoys her life and she was able to identify with interests. Pt. had a difficult time with words throughout our interaction. Pt. would at times repeat herself or show confusion when attempting to answer questions. SPEECH THERAPY: Mild aphasia, mild attention deficits, mild lack of insight Goals: Occupational Therapy: Initial Goals Goals to be Completed in (Days 1-2 ) Upper Body Bathing Routine Independent Lower Body Bathing Routine Modified Independent with Upper Body Dressing Routine Independent Lower Body Dressing Routine Modified Independent with Toilet Hygeine and Clothing Independent Management Routine Toilet Transfer Routine Modified Independent with Step-In Shower Transfer Supervision/Set Up Routine Functional Transfers for ADL Modified Independent with Grooming Routine Independent Feeding Routine Independent Light Housekeeping Tasks Modified Independent with Medicine Note: Length of Stay: 5 days Anticipated Discharge Destination: Tentative Discharge Date: 04/26/18 Discharged to: Home
--- NOTE | 2018-04-21 15:46 | HP ---
ADMISSION HISTORY AND PHYSICAL: DATE OF ADMISSION: 04/21/18 REASON FOR ADMISSION: Left-sided subdural hematoma with right weakness and aphasia. HISTORY OF ILLNESS: Richelle Scott is a 72-year-old female. The patient was brought to the emergency room at [facility] on 04/07/18 because she was having trouble forming words. Her son thought she had a change in mental status. She was found to be aphasic in the emergency room. A CAT scan of her head had shown a large left-sided subdural hematoma with shift. She was seen emergently by Dr. Vee and taken to the OR that same day for a left frontal craniotomy. She was monitored in the intensive care unit and put on Keppra for seizure prophylaxis. She was extubated on 04/08/18. She had issues with aphasia that seemed to be getting worse postop. She was admitted to rehab on 04/15/18. The patient worked with therapy, but was noted to be increasingly aphasic when the neurosurgery team saw her. A new CAT scan was ordered. It had shown reaccumulation of her subdural. She was taken back to the operating room on 04/16/18. She underwent a revision of a left frontotemporoparietal craniotomy with evacuation of the subdural-epidural hematoma. After surgery, she was monitored in the intensive care unit. Her mental status improved slowly. Both drains were pulled. She had less and less aphasia. She was transferred out of the intensive care unit on 04/19/18. By 04/20/18, she seemed to be doing better. She was felt to have physical therapy, occupational therapy and perhaps speech therapy needs. She is now being admitted for inpatient rehab, so she may return to independent living. PAST MEDICAL HISTORY: Significant for diabetes mellitus. She has a history of hypertension, asthma. CURRENT MEDICATIONS: Include: 1. Lantus insulin. 2. Lispro insulin. 3. She is on Lipitor. 4. Vasotec. 5. Pepcid. 6. Norvasc. 7. Tylenol. 8. Keppra for seizure prophylaxis. 9. She is also on Lopressor. 10. Dulera. ALLERGIES: The patient has allergies to PAXIL noted. SOCIAL HISTORY: She lives with her son on a farm. It is a two-story house with a basement. There are 3 steps to enter. Her son does have a mild traumatic brain injury. REVIEW OF SYSTEMS: The patient reports no current shortness of breath or chest pain. PHYSICAL EXAMINATION VITAL SIGNS: The patient's temperature is 98.3, blood pressure is 105/51, pulse is 62, respirations 18. HEENT: She has a bandage over her left side of her scalp. Extraocular movements appear to be intact. LUNGS: Sounded clear to auscultation bilaterally. HEART: Sounds were regular. S1 and S2 were audible. ABDOMEN: Soft and nontender. EXTREMITIES: Seemed to have normal muscle, bulk and tone. Peripheral pulses were intact. No edema was noted in her feet. NEUROLOGIC: The patient had mild word finding difficulties. Muscle strength appeared to be 5/5 in both upper and lower extremities, although right side may have been slightly weaker than the left. FUNCTIONAL EXAM: The patient transfers with contact guard. She had some balance difficulties. ASSESSMENT: Subdural hematoma. PLAN: Integrate her into a comprehensive and therapeutic rehab program with the following goals: 1. Physical Therapy will work with the patient. They are going to work on functional transfer training, ambulation training with a walker. 2. Occupational Therapy will see the patient, work on her activities of daily living including toileting and toilet transfers. 3. DAMON stockings for DVT prophylaxis. Pharmacologic anticoagulation is contraindicated because of her 2 recent subdurals. 4. Speech Therapy will see the patient, work with her on her aphasia and compensatory techniques. 5. For her hypertension, we will continue her Vasotec, Lopressor, and Norvasc. 6. For her diabetes, we will continue her Lantus insulin and lispro sliding scale coverage. We will increase her Lantus as her most recent fingerstick was elevated. 7. Family training as appropriate. 8. environmental services lead will be closely involved to make sure that any services and equipment that the patient requires are in place prior to discharge. 9. Home with appropriate services. ESTIMATED LENGTH OF STAY: Seven days. [id number]/[facility] #: [id number] [facility]ENTERSherif
[2018-04-21] MEDS: Atorvastatin* 20 MG TAB PO SCH (18:04)
[2018-04-21] MEDS: Insulin LISPRO* 1 UNITS UNIT SUBCUT SCH ×2 (18:05→21:25)
[2018-04-21] MEDS ORDERED: Insulin GLARGINE(*) 1 UNITS UNIT SUBCUT SCH (20:00)
[2018-04-21] MEDS: levETIRAcetam TAB* 500 MG PO SCH (21:24)
[2018-04-21] MEDS: Metoprolol Tartrate TAB* 25 MG PO SCH (21:25)
[2018-04-21] MEDS: Mometasone/Formoter 200/5 MDI INH SCH (21:27)
[2018-04-21] MEDS: Docusate CAP* 100 MG PO SCH (21:27)
[2018-04-21] MEDS: Insulin GLARGINE(*) 1 UNITS UNIT SUBCUT SCH (21:27)
[2018-04-22 05:31] LABS: ABS Basophils 0 10^3/ul (0-0.2); ABS Eosinophils 0.5 10^3/ul (0-0.6); ABS Lymphocytes 1.6 10^3/ul (1.0-4.8); ABS Monocytes 0.4 10^3/ul (0-0.8); ABS Neutrophils 4.5 10^3/ul (1.5-7.7); ABS Nucleated RBC 0 10^3/ul; Eosinophil % 6.9 %; Hematocrit 29 % (35-47); Lymphocyte % 23.2 %; Mean Corpuscular HGB Conc 34 g/dl (31-36); Mean Corpuscular Hemoglobin 30 pg (27-31); Mean Corpuscular Volume 88 fL (80-97); Mean Platelet Volume 8.7 fL (7.4-10.4); Nucleated Red Blood Cells % 0; Platelet Count 381 10^3/ul (150-450); Red Blood Count 3.34 10^6/ul (4.00-5.40); Red Cell Distribution Width 13 % (10.5-15)
[2018-04-22 05:52] LABS: Albumin 3.6 g/dL (3.2-5.2); Albumin/Globulin Ratio 1.6 (1-3); BUN/Creatinine Ratio 21.7 (8-20); Calcium 8.9 mg/dL (8.6-10.3); EGFR African American 101.8 (>60); EGFR Non-African American 84.1 (>60); Globulin 2.2 g/dL (2-4); Potassium 4.2 mmol/L (3.5-5.0); Total Bilirubin 0.3 mg/dL (0.2-1.0); Total Protein 5.8 g/dL (6.4-8.9)
[2018-04-22] MEDS: Metoprolol Tartrate TAB* 25 MG PO SCH ×2 (08:25→20:53)
[2018-04-22] MEDS: Docusate CAP* 100 MG PO SCH ×2 (08:26→20:53)
[2018-04-22] MEDS: Insulin LISPRO* 1 UNITS UNIT SUBCUT SCH ×4 (08:26→20:53)
[2018-04-22] MEDS: amLODIPine TAB* 5 MG PO SCH (08:26)
[2018-04-22] MEDS: Famotidine TAB* 20 MG PO SCH (08:26)
[2018-04-22] MEDS: Enalapril TAB* 5 MG PO SCH (08:26)
[2018-04-22] MEDS: levETIRAcetam TAB* 500 MG PO SCH ×2 (08:26→20:53)
[2018-04-22] MEDS: Mometasone/Formoter 200/5 MDI INH SCH ×2 (08:29→20:33)
--- NOTE | 2018-04-22 09:55 | PN ---
Subjective Date of Service: 04/22/18 Interval History: HOSPITALIST PROGRESS NOTE Patient seen and examined at bedside. Care reviewed and d/w Joslyn Sheikh RN. She feels well, offers no complaints today. Denies WRAY, N/V, or any localized weakness. Family History: Unchanged from Admission Social History: Unchanged from Admission Past Medical History: Unchanged from Admission Objective Active Medications: Acetaminophen (Tylenol Tab*) 650 mg PO Q6H PRN PRN Reason: FEVER/PAIN Amlodipine Besylate (Norvasc Tab*) 10 mg PO DAILY [facility] Last Admin: 04/22/18 08:26 Dose: 10 mg Atorvastatin Calcium (Lipitor*) 20 mg PO 1700 [facility] Last Admin: 04/21/18 18:04 Dose: 20 mg Dextrose (D50w Syringe 50 Ml*) 12.5 gm IV PUSH .FOR FS < 60 - SS PRN PRN Reason: FS < 60 Docusate Sodium (Colace Cap*) 100 mg PO BID [facility] Last Admin: 04/22/18 08:26 Dose: 100 mg Enalapril Maleate (Vasotec Tab*) 10 mg PO DAILY [facility] Last Admin: 04/22/18 08:26 Dose: 10 mg Famotidine (Pepcid Tab*) 20 mg PO DAILY [facility] Last Admin: 04/22/18 08:26 Dose: 20 mg Insulin Glargine (Lantus(*)) 20 units SUBCUT Q24H [facility] Last Admin: 04/21/18 21:27 Dose: 20 units Insulin Human Lispro (Humalog*) 0 - 10 units SUBCUT ACHS [facility]; Protocol Last Admin: 04/22/18 08:26 Dose: 1 units Levetiracetam (Keppra Tab*) 500 mg PO BID [facility] Last Admin: 04/22/18 08:26 Dose: 500 mg Magnesium Hydroxide (Milk Of Magnesia Liq*) 30 ml PO Q6H PRN PRN Reason: CONSTIPATION Metoprolol Tartrate (Lopressor Tab*) 25 mg PO BID [facility] Last Admin: 04/22/18 08:25 Dose: 25 mg Mometasone Furoate/Formoterol Fumar (Dulera 200/5 Mdi*) 2 puff INH BID [facility] Last Admin: 04/22/18 08:29 Dose: 2 puff Senna (Senokot Tab*) 2 tab PO BEDTIME PRN PRN Reason: CONSTIPATION Vital Signs - 8 hr 04/22/18 04:56 Temperature 98.7 F Pulse Rate 62 Respiratory 20 Rate Blood Pressure 122/49 (mmHg) O2 Sat by Pulse 96 Oximetry Oxygen Devices in Use Now: None Appearance: Pleasant elderly lady sitting up in bed in NAD. Eyes: No Scleral Icterus Ears/Nose/Mouth/Throat: Mucous Membranes Moist Neck: Trachea Midline Respiratory: Symmetrical Chest Expansion and Respiratory Effort, Clear to Auscultation Cardiovascular: RRR - Normal S1 and S2 Skin: - - Craniotomy incision is open to air, clean and dry Neurological: Alert and Oriented x 3, NL Muscle Strength and Tone, - - Speech is fluent Result Diagrams: 04/22/18 04:46 04/22/18 04:46 Assess/Plan/Problems-Billing Assessment: Mrs Scott is a 72 yo F with PMH of type 2 DM, asthma, HLD, who presented to ED with dysarthria, confusion, after a fall. Found to have left SDH s/p craniotomy and SDH evacuation x 2 04/07/18 and 04/16/[address] Vee. - Patient Problems (1) Subdural hematoma, post-traumatic Comment: - Secondary to mechanical fall in Mar 2018; s/p evacuation 04/08/18 and again on 04/16/18. - Continue PT/OT/ST. - Continue Levatiracetam. (2) HTN (hypertension) Comment: - Controlled. - Continue metoprolol, amlodipine, and enalapril. (3) Diabetes Comment: - Glucose was elevated last night, but better this AM. - Continue Lantus and Lispro SS and monitor. (4) HLD (hyperlipidemia) Comment: - Continue atorvastatin (5) DVT prophylaxis Comment: - DAMON stockings. (6) Full code status Comment:
[2018-04-22] MEDS: Atorvastatin* 20 MG TAB PO SCH (16:37)
[2018-04-22] MEDS: Insulin GLARGINE(*) 1 UNITS UNIT SUBCUT SCH (20:51)
[2018-04-22] MEDS: Acetaminophen TAB* 325 MG PO PRN (20:53)
[2018-04-23] MEDS ORDERED: Insulin GLARGINE(*) 1 UNITS UNIT SUBCUT ONE (07:27)
[2018-04-23] MEDS: Enalapril TAB* 5 MG PO SCH (07:55)
[2018-04-23] MEDS: Metoprolol Tartrate TAB* 25 MG PO SCH ×2 (07:55→21:16)
[2018-04-23] MEDS: Famotidine TAB* 20 MG PO SCH (07:56)
[2018-04-23] MEDS: Docusate CAP* 100 MG PO SCH ×2 (07:56→21:03)
[2018-04-23] MEDS: amLODIPine TAB* 5 MG PO SCH (07:56)
[2018-04-23] MEDS: levETIRAcetam TAB* 500 MG PO SCH ×2 (07:56→21:03)
[2018-04-23] MEDS: Mometasone/Formoter 200/5 MDI INH SCH ×2 (08:28→21:29)
[2018-04-23] MEDS: Insulin LISPRO* 1 UNITS UNIT SUBCUT SCH ×4 (09:12→20:58)
--- NOTE | 2018-04-23 11:51 | PN ---
Subjective Date of Service: 04/23/18 Interval History: HOSPITALIST PROGRESS NOTE Patient seen and examined at bedside. Care reviewed and d/w Joslyn Sheikh RN. She feels well today, offers no complaints. Family History: Unchanged from Admission Social History: Unchanged from Admission Past Medical History: Unchanged from Admission Objective Active Medications: Acetaminophen (Tylenol Tab*) 650 mg PO Q6H PRN PRN Reason: FEVER/PAIN Last Admin: 04/22/18 20:53 Dose: 650 mg Amlodipine Besylate (Norvasc Tab*) 10 mg PO DAILY [facility] Last Admin: 04/23/18 07:56 Dose: 10 mg Atorvastatin Calcium (Lipitor*) 20 mg PO 1700 [facility] Last Admin: 04/22/18 16:37 Dose: 20 mg Dextrose (D50w Syringe 50 Ml*) 12.5 gm IV PUSH .FOR FS < 60 - SS PRN PRN Reason: FS < 60 Docusate Sodium (Colace Cap*) 100 mg PO BID [facility] Last Admin: 04/23/18 07:56 Dose: 100 mg Enalapril Maleate (Vasotec Tab*) 10 mg PO DAILY [facility] Last Admin: 04/23/18 07:55 Dose: 10 mg Famotidine (Pepcid Tab*) 20 mg PO DAILY [facility] Last Admin: 04/23/18 07:56 Dose: 20 mg Insulin Glargine (Lantus(*)) 25 units SUBCUT Q24H [facility] Insulin Human Lispro (Humalog*) 0 - 10 units SUBCUT ACHS [facility]; Protocol Last Admin: 04/23/18 09:12 Dose: 1 units Levetiracetam (Keppra Tab*) 500 mg PO BID [facility] Last Admin: 04/23/18 07:56 Dose: 500 mg Magnesium Hydroxide (Milk Of Magnesia Liq*) 30 ml PO Q6H PRN PRN Reason: CONSTIPATION Metoprolol Tartrate (Lopressor Tab*) 25 mg PO BID [facility] Last Admin: 04/23/18 07:55 Dose: 25 mg Mometasone Furoate/Formoterol Fumar (Dulera 200/5 Mdi*) 2 puff INH BID [facility] Last Admin: 04/23/18 08:28 Dose: 2 puff Senna (Senokot Tab*) 2 tab PO BEDTIME PRN PRN Reason: CONSTIPATION Vital Signs - 8 hr 04/23/18 05:35 Temperature 97.6 F Pulse Rate 64 Respiratory 16 Rate Blood Pressure 146/55 (mmHg) O2 Sat by Pulse 100 Oximetry Oxygen Devices in Use Now: None Appearance: Pleasant elderly lady sitting up in bed in NAD. Eyes: No Scleral Icterus Ears/Nose/Mouth/Throat: Mucous Membranes Moist Neck: Trachea Midline Respiratory: Symmetrical Chest Expansion and Respiratory Effort, Clear to Auscultation Cardiovascular: RRR - Normal S1 and S2 Skin: - - Surgical incision is clean and dry Neurological: Alert and Oriented x 3, NL Muscle Strength and Tone Result Diagrams: 04/22/18 04:46 04/22/18 04:46 Assess/Plan/Problems-Billing Assessment: Mrs Scott is a 72 yo F with PMH of type 2 DM, asthma, HLD, who presented to ED with dysarthria, confusion, after a fall. Found to have left SDH s/p craniotomy and SDH evacuation x 2 04/07/18 and 04/16/[address] Vee. - Patient Problems (1) Subdural hematoma, post-traumatic Comment: - Secondary to mechanical fall in Mar 2018; s/p evacuation 04/08/18 and again on 04/16/18. - Continue PT/OT/ST. - Continue Levatiracetam. (2) HTN (hypertension) Comment: - Controlled. - Continue metoprolol, amlodipine, and enalapril. (3) Diabetes Comment: - Increase Lantus to 25 and continue Lispro SS. (4) HLD (hyperlipidemia) Comment: - Continue atorvastatin (5) DVT prophylaxis Comment: - DAMON stockings. (6) Full code status Comment:
--- NOTE | 2018-04-23 12:15 | PN ---
Progress Note - Progress Note Date of Service: 04/23/18 SOAP: Subjective: []No events ON. Tolerates PO. Ambulates. On [facility] floor. Wants to go home. Objective: []VSS, Afebrile Wounds s,c,d. AAOx3. JOCELINE, CNII-XII grossly intact Motor 5/5 all extremities, No pronator drift Sensory grossly intact to light touch Assessment: []72 yof POD#8 revision craniotomy for SDH evacuation Plan: []Monitor VS, Neurochecks OOB with assistance. Fall precautions Encourage ambulation. PT IS Follow up in office in 2 weeks Please call prior to dc to remove mick. Appreciate PMRU/ IM care. Keagan Vee MD
[2018-04-23] MEDS: Acetaminophen TAB* 325 MG PO PRN (12:44)
[2018-04-23] MEDS ORDERED: Insulin LISPRO* 1 UNITS UNIT SUBCUT ONE ×2 (17:45→17:54)
[2018-04-23] MEDS: Atorvastatin* 20 MG TAB PO SCH (17:56)
[2018-04-23] MEDS: Insulin GLARGINE(*) 1 UNITS UNIT SUBCUT SCH (21:05)
[2018-04-24] MEDS: Metoprolol Tartrate TAB* 25 MG PO SCH ×2 (08:25→20:55)
[2018-04-24] MEDS: Enalapril TAB* 5 MG PO SCH (08:25)
[2018-04-24] MEDS: Famotidine TAB* 20 MG PO SCH (08:25)
[2018-04-24] MEDS: amLODIPine TAB* 5 MG PO SCH (08:25)
[2018-04-24] MEDS: levETIRAcetam TAB* 500 MG PO SCH ×2 (08:25→20:55)
[2018-04-24] MEDS: Docusate CAP* 100 MG PO SCH ×2 (08:25→20:55)
[2018-04-24] MEDS: Insulin LISPRO* 1 UNITS UNIT SUBCUT SCH ×4 (08:28→20:54)
[2018-04-24] MEDS: Mometasone/Formoter 200/5 MDI INH SCH ×2 (14:12→20:55)
--- NOTE | 2018-04-24 17:43 | PN ---
Progress Note Date of Service: 04/24/18 Note: CORNELIO BRINK was visited. Nursing notes read and reviewed. She is doing quite well and has no complaints. Speech is fluent. Gait steadier Current Medications: Active Medications Generic Name Dose Route Start Last Admin Trade Name Freq PRN Reason Stop Dose Admin Acetaminophen 650 mg 04/21/18 14:25 04/23/18 12:44 Tylenol Tab* PO 650 mg Q6H PRN Administration FEVER/PAIN Amlodipine Besylate 10 mg 04/22/18 09:00 04/24/18 08:25 Norvasc Tab* PO 10 mg DAILY SAMANTHA Administration Atorvastatin Calcium 20 mg 04/21/18 17:00 04/23/18 17:56 Lipitor* PO 20 mg 1700 SAMANTHA Administration Dextrose 12.5 gm 04/21/18 14:34 D50w Syringe 50 Ml* IV PUSH .FOR FS < 60 - SS PRN FS < 60 Docusate Sodium 100 mg 04/21/18 21:00 04/24/18 08:25 Colace Cap* PO 100 mg BID SAMANTHA Administration Enalapril Maleate 10 mg 04/22/18 09:00 04/24/18 08:25 Vasotec Tab* PO 10 mg DAILY SAMANTHA Administration Famotidine 20 mg 04/22/18 09:00 04/24/18 08:25 Pepcid Tab* PO 20 mg DAILY SAMANTHA Administration Insulin Glargine 25 units 04/23/18 20:00 04/23/18 21:05 Lantus(*) SUBCUT 25 units Q24H SAMANTHA Administration Insulin Human Lispro 0 - 10 units 04/21/18 16:30 04/24/18 14:12 Humalog* SUBCUT 10 units ACHS SAMANTHA Administration Protocol Levetiracetam 500 mg 04/21/18 21:00 04/24/18 08:25 Keppra Tab* PO 500 mg BID SAMANTHA Administration Magnesium Hydroxide 30 ml 04/21/18 14:25 Milk Of Magnesia Liq* PO Q6H PRN CONSTIPATION Metoprolol Tartrate 25 mg 04/21/18 21:00 04/24/18 08:25 Lopressor Tab* PO 25 mg BID SAMANTHA Administration Mometasone Furoate/Formoterol Fumar 2 puff 04/21/18 21:00 04/24/18 14:12 Dulera 200/5 Mdi* INH 2 puff BID SAMANTHA Administration Senna 2 tab 04/21/18 14:25 Senokot Tab* PO BEDTIME PRN CONSTIPATION Vital Signs: Vital Signs Temp Pulse Resp BP Pulse Ox 97.9 F 63 16 129/57 100 04/24/18 05:53 04/24/18 05:53 04/24/18 08:00 04/24/18 05:53 04/24/18 08:00 Lab Results: Laboratory Results - last 24 hr 04/23/18 04/24/18 04/24/18 20:57 07:39 13:46 POC Glucose (mg/dL) 110 H 97 351 H 04/24/18 16:59 POC Glucose (mg/dL) 235 H Exam: HEENT: [place] in place over left cranitomy site. Looks clean LUNGS: Clear bilaterally HEART: Reg rhythm ABDOMEN: Soft, EXTREMITIES: No edema NEUROLOGIC: A & O. Muscle strength very good on right Assessment/Plan: Assessment: 1. 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 DM: continue Lantus 25. SSI. Suspect high readings are due to dietary lapses 3. DVT Prophylaxis: TEDs. Anticoagulation contraindicated 4. HTN: Continue amlodipine/Vasotec/Lopressor 5. Seizure prophylaxis: Will ask neurology about stopping Keppra or taper 6. Advanced Directives: Full code. 04/24/18 17:45 04/24/18 17:46 04/24/18 17:48
[2018-04-24] MEDS: Atorvastatin* 20 MG TAB PO SCH (18:13)
[2018-04-24] MEDS: Insulin GLARGINE(*) 1 UNITS UNIT SUBCUT SCH (20:53)
[2018-04-25] MEDS: Insulin LISPRO* 1 UNITS UNIT SUBCUT SCH ×4 (07:41→20:48)
[2018-04-25] MEDS: Mometasone/Formoter 200/5 MDI INH SCH ×2 (07:56→20:48)
[2018-04-25] MEDS: Metoprolol Tartrate TAB* 25 MG PO SCH ×2 (07:56→20:47)
[2018-04-25] MEDS: amLODIPine TAB* 5 MG PO SCH (07:56)
[2018-04-25] MEDS: Famotidine TAB* 20 MG PO SCH (07:56)
[2018-04-25] MEDS: levETIRAcetam TAB* 500 MG PO SCH (07:56)
[2018-04-25] MEDS: Enalapril TAB* 5 MG PO SCH (07:56)
[2018-04-25] MEDS: Docusate CAP* 100 MG PO SCH ×2 (07:57→20:47)
[2018-04-25] MEDS ORDERED: metFORMIN* 500 MG TAB PO ONE (17:12)
[2018-04-25] MEDS: Atorvastatin* 20 MG TAB PO SCH (17:17)
[2018-04-25] MEDS ORDERED: Insulin GLARGINE(*) 1 UNITS UNIT SUBCUT SCH (20:00)
--- NOTE | 2018-04-25 20:08 | PN ---
Progress Note Date of Service: 04/25/18 Note: CORNELIO BRINK was visited. Therapy notes read and reviewed. She is set for discharge tomorrow. Her Keppra was stopped as she only needed it for one week post surgery. She will be restarted on Metformin. Current Medications: Active Medications Generic Name Dose Route Start Last Admin Trade Name Freq PRN Reason Stop Dose Admin Acetaminophen 650 mg 04/21/18 14:25 04/23/18 12:44 Tylenol Tab* PO 650 mg Q6H PRN Administration FEVER/PAIN Amlodipine Besylate 10 mg 04/22/18 09:00 04/25/18 07:56 Norvasc Tab* PO 10 mg DAILY SAMANTHA Administration Atorvastatin Calcium 20 mg 04/21/18 17:00 04/25/18 17:17 Lipitor* PO 20 mg 1700 SAMANTHA Administration Dextrose 12.5 gm 04/21/18 14:34 D50w Syringe 50 Ml* IV PUSH .FOR FS < 60 - SS PRN FS < 60 Docusate Sodium 100 mg 04/21/18 21:00 04/25/18 07:57 Colace Cap* PO Not Given BID [facility] Enalapril Maleate 10 mg 04/22/18 09:00 04/25/18 07:56 Vasotec Tab* PO 10 mg DAILY SAMANTHA Administration Famotidine 20 mg 04/22/18 09:00 04/25/18 07:56 Pepcid Tab* PO 20 mg DAILY SAMANTHA Administration Insulin Glargine 22 units 04/25/18 20:00 Lantus(*) SUBCUT Q24H [facility] Insulin Human Lispro 0 - 10 units 04/21/18 16:30 04/25/18 17:17 Humalog* SUBCUT 8 units ACHS SAMANTHA Administration Protocol Magnesium Hydroxide 30 ml 04/21/18 14:25 Milk Of Magnesia Liq* PO Q6H PRN CONSTIPATION Metformin HCl 500 mg 04/26/18 08:00 Glucophage* PO 0800,1700 SAMANTHA Metoprolol Tartrate 25 mg 04/21/18 21:00 04/25/18 07:56 Lopressor Tab* PO 25 mg BID SAMANTHA Administration Mometasone Furoate/Formoterol Fumar 2 puff 04/21/18 21:00 04/25/18 07:56 Dulera 200/5 Mdi* INH 2 puff BID SAMANTHA Administration Senna 2 tab 04/21/18 14:25 Senokot Tab* PO BEDTIME PRN CONSTIPATION Vital Signs: Vital Signs Temp Pulse Resp BP Pulse Ox 97.7 F 62 18 120/40 100 04/25/18 15:22 04/25/18 15:22 04/25/18 17:19 04/25/18 15:22 04/25/18 17:19 Lab Results: Laboratory Results - last 24 hr 04/24/18 04/25/18 04/25/18 20:42 07:40 11:52 Glucose POC Glucose (mg/dL) 254 H 128 H > 444 H* 04/25/18 04/25/18 12:08 16:31 Glucose 345 H POC Glucose (mg/dL) 309 H Exam: HEENT: [place] in place over left cranitomy site. Looks clean LUNGS: Clear bilaterally HEART: Reg rhythm ABDOMEN: Soft, EXTREMITIES: No edema NEUROLOGIC: A & O. Muscle strength very good on right Assessment/Plan: Assessment: 1. 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 Vee May 03 2. DM: continue Lantus 22. SSI. Restart Metformin 3. DVT Prophylaxis: TEDs. Anticoagulation contraindicated 4. HTN: Continue amlodipine/Vasotec/Lopressor 5. Seizure prophylaxis: Stop Keppra. No seizures 6. Advanced Directives: Full code. 04/25/18 20:08
[2018-04-26 06:41] VITALS: BP 117/49
[2018-04-26] MEDS: Insulin LISPRO* 1 UNITS UNIT SUBCUT SCH ×2 (07:42→12:06)
[2018-04-26] MEDS: Metoprolol Tartrate TAB* 25 MG PO SCH (07:44)
[2018-04-26] MEDS: Famotidine TAB* 20 MG PO SCH (07:44)
[2018-04-26] MEDS: amLODIPine TAB* 5 MG PO SCH (07:44)
[2018-04-26] MEDS: Enalapril TAB* 5 MG PO SCH (07:44)
[2018-04-26] MEDS: Mometasone/Formoter 200/5 MDI INH SCH (07:45)
[2018-04-26] MEDS: Docusate CAP* 100 MG PO SCH (07:46)
[2018-04-26] MEDS ORDERED: metFORMIN* 500 MG TAB PO SCH (08:00)
--- NOTE | 2018-04-26 22:01 | DS ---
CC: Dr. Kellie Fletcher in [place] * DISCHARGE SUMMARY: DATE OF ADMISSION: 04/21/18 DATE OF DISCHARGE: 04/26/18 DISCHARGE DIAGNOSES: 1. Left subdural hematoma. 2. Status post craniotomy and evacuation of the same. 3. Aphasia. 4. Mild right-sided weakness. 5. Diabetes mellitus. 6. Hypertension. 7. Asthma. HISTORY OF ILLNESS AND HOSPITAL COURSE: For complete history of the events leading up to her rehab stay, please see the history and physical dictated by me on 04/21/18. While on the rehab unit, she was medically stable. She was on Keppra and was tapered off it after 8 days. No seizure activity was noted. The patient's blood sugars were a little high. Her Lantus dose was slowly increased. Finally, her metformin was added in and following that the blood sugars were in much better control. The patient was otherwise medically stable. Her suture line appeared to be clean and dry. The patient was seen by both Physical and Occupational Therapy and made good gains with both disciplines. She was also seen by Speech Therapy. With physical therapy at the time of admission, the patient required supervision to contact guarded transfer. She could ambulate 150 feet with contact guard to min assist. With occupational therapy at the time of admission, the patient required supervision for upper body dressing, supervision for lower body dressing, supervision for toileting and toilet transfers due to balance. By the time of discharge, the patient was independent with transfers, independent ambulating 150 feet with a rolling walker, independent going up and down 12 stairs, independent in dressing , and she required supervision for bathing. The patient was also seen by Speech Therapy. She was noted to have some difficulty with visual-spatial learning. Her naming was good. By the time of discharge, the patient had some cognitive-linguistic deficits, but was functional with most problems, she did have some difficulty with moderately complex routine problems. The patient was discharged home on 04/26/18. DISCHARGE DIET: Consistent carbohydrates. DISCHARGE MEDICATIONS: 1. Norvasc 10 mg daily. 2. Lipitor 20 mg daily. 3. Vasotec 10 mg daily. 4. Pepcid 20 mg daily. 5. Metformin 500 mg at 8 a.m. and 5 p.m. 6. Lopressor 25 mg twice daily. 7. Lantus insulin 15 units subcutaneously daily. 8. Symbicort 80/4.5 two puffs inhaled twice daily. SERVICES AFTER DISCHARGE: The patient will have outpatient physical therapy at [facility]. Follow up with Dr. Vee on 05/03/18 at 10 a.m. She will also follow up with her primary care doctor, Dr. Kellie Fletcher. TIME SPENT: Time for this discharge was approximately 50 minutes; greater than half of that was spent with the patient and her family discussing post- rehabilitation therapies, medications, and followup. [id number]/[facility] #: [id number] MTDD
== END 2018-04-26 13:10 | disposition home or self-care (01) | DRG 949 ==
LOC: PMRU 14:05
PROVIDERS: ADMIT Physical Medicine & Rehabilitation; ATTEND Physical Medicine & Rehabilitation
PROC: F07Z5ZZ Bed Mobility Treatment (ICD-10-PCS; principal; 2018-04-21)
PROC: F07Z9ZZ Gait Training/Functional Ambulation Treatment (ICD-10-PCS; 2018-04-21)
PROC: F07Z8ZZ Transfer Training Treatment (ICD-10-PCS; 2018-04-21)
PROC: F08Z0ZZ Bathing/Showering Techniques Treatment (ICD-10-PCS; 2018-04-21)
PROC: F08Z1ZZ Dressing Techniques Treatment (ICD-10-PCS; 2018-04-21)
PROC: F08Z3ZZ Feeding/Eating Treatment (ICD-10-PCS; 2018-04-21)
PROC: F06Z3ZZ Aphasia Treatment (ICD-10-PCS; 2018-04-21)
DX: Z48.89 Encounter for other specified surgical aftercare (principal); R47.01 Aphasia; G81.91 Hemiplegia, unspecified affecting right dominant side; E11.9 Type 2 diabetes mellitus without complications; I10 Essential (primary) hypertension; J45.909 Unspecified asthma, uncomplicated; Z79.1 Long term (current) use of non-steroidal anti-inflammatories (NSAID); Z79.4 Long term (current) use of insulin; Z79.899 Other long term (current) drug therapy; Z88.8 Allergy status to other drugs, medicaments and biological substances
CPT/HCPCS: 36415; 80053; 82947; 85025; 94640; A9270-GY

== ENCOUNTER 2018-07-29 10:47 | Emergency (ER) | payer MEDICARE ==
--- OUTSIDE RECORDS SUMMARY | 2018-07-29 11:02 | XMS REPORT | Continuity of Care Document ---
:1945 External Reference #:[id number] Author Name Torri Roth Care Team Providers Name Role Phone Kellie Fletcher DO Primary Care Physician Unavailable Payers Date Identification Numbers Payment Provider Subscriber Policy Number: [id number] Medicare Blue Ppo Richelle Scott PayID: [id number] [address] [address] [place] [address] Effective: 2016 Policy Number: [id number] [employer]ets Richelle Scott Expires: 2017 Group Number: [id number] [address] PayID: [id number] [place] [address] Family History Date Family Member(s) Observation Comments General [place] General Heart Disease General Suicide Social History Type Date Description Comments Sex Unknown Lives With Son Occupation Retired ETOH Use Denies alcohol use Tobacco Use Start: Unknown Patient has never smoked Smoking Status Reviewed: 07/26/18 Patient has never smoked Exercise Type/Frequency Exercises sporadically Allergies, Adverse Reactions, Alerts Active Allergies Reaction Severity Comments Date Paxil Anaphylaxis 11/09/2016 Medications Active Medications SIG Qnty Indications Ordering Provider Date Naproxen 1 by mouth twice 60tabs M17.12 Bogdan F 11/09/2016 500mg Tablets a day as needed MD Parker pain Ventolin HFA 2 puffs by mouth Unknown 108(90Base) four times a day mcg/Act Aerosol as needed Benadryl 1 tab by mouth Unknown 25mg Tablets at night as needed Ibuprofen as needed Unknown 200mg Tablets Symbicort 2 puff twice a Unknown 80-4.5mcg/Act day Aerosol Metformin HCL 1 by mouth twice Unknown 500mg a day Tablets Lantus Solostar Uad Unknown 100Unit/ML Solution Pen-Inject Atorvastatin Calcium Fletcher, 20mg Kellie Santana, DO Tablets History Medications Gabapentin take 1 capsule by mouth Unknown - 05/03/2018 100mg Capsules at night for 1 week then 1 by mouth twice daily ongoing Vital Signs Date Vital Result Comment 07/26/2018 9:35am Height 61 inches 5'1" Weight 114.00 lb BP Systolic Sitting 150 mmHg BP Diastolic Sitting 70 mmHg Pain Level 0 BMI (Body Mass Index) 21.5 kg/m2 05/20/2018 9:01am Height 61 inches 5'1" Weight 114.00 lb BP Systolic Sitting 130 mmHg BP Diastolic Sitting 88 mmHg Pain Level 0 sometimes dull ache BMI (Body Mass Index) 21.5 kg/m2 05/03/2018 9:51am Height 61 inches 5'1" Weight 114.00 lb BP Systolic Sitting 154 mmHg BP Diastolic Sitting 80 mmHg Body Temperature 97.0 F Pain Level 0 BMI (Body Mass Index) 21.5 kg/m2 07/12/2017 10:08am Height 61 inches 5'1" Weight [...] Result H/L Range Note Laboratory test 04/07/2018 [facility] Floseal SEE RESULTS 1 , [address] [place] <[place] [address] NOTE> [phone] Laboratory test 04/07/2018 [facility] Point of Care 113 mg/dL High 70-[address] [address] [phone] 1 CRANIOTOMY 2 SEE RESULTS BELOW [id number] FLOSEAL TRANSFUSED 04/07/18 1843 3 Background Investigator: [id number] Procedures Date Code Description Status 04/16/2018 80477 Craniectomy Or Craniotomy For Evacuation Of Hematoma Completed 04/08/2018 68983 EKG, Interpretation Only Completed 04/07/2018 14087 Craniectomy Or Craniotomy For Evacuation Of Hematoma Completed 11/09/201648793 Inject/Drain Joint/Bursa Major W/O US Completed Encounters Type Date Location Provider Dx Diagnosis Office Visit 07/26/2018 Neurosurgery Vassilios S06.5x0D [facility] subdr hem 9:30a Services Of Donny Vee MD w/o loss of consciousness, subs [facility] subdr hem 9:12a fox Fung M.D. w/o loss of Hospitalists consciousness, subs E11.9 Type 2 diabetes mellitus without complications I10 Essential (primary) hypertension W19.xxxD Unspecified fall, subsequent encounter Office Visit 04/22/2018 [facility] W19.xxxD Unspecified fall, 9:12a Assfox hernandez M.D. subsequent Hospitalists encounter S06.5x0D [facility] subdr hem w/o loss of consciousness, subs Office Visit 04/21/2018 [facility] Sheryl S06.5x0D Tra[facility] subdr hem w/o 9:21a Assfox hernandez, WEEKEND RECEPTIONIST loss of Hospitalists consciousness, subs Office Visit 04/20/2018 [facility] Sheryl S06.5x0D Tra[facility] subdr hem w/o 9:21a Assocfox, WEEKEND RECEPTIONIST loss of Hospitalists consciousness, subs E11.9 Type 2 diabetes mellitus without complications I10 Essential (primary) hypertension J45.909 Unspecified asthma, uncomplicated Office Visit 04/19/2018 9:20a [facility] Glynn Alfredo, S06.5x0D [facility] subdr hem w/o M.D. loss of consciousness, subs Office Visit 04/18/2018 9:20a [facility] Glynn Alfredo, S06.5x0D [facility] subdr hem w/o M.D. loss of consciousness, subs Office Visit 04/17/2018 9:19a [facility] Glynn Alfredo, S06.5x0D [facility] subdr hem w/o M.D. loss of consciousness, subs R47.01 Aphasia Office Visit 04/16/2018 [facility] Judah Self, S06.5x0D [facility] subdr hem w/o 9:19a DO loss of consciousness, subs I10 Essential (primary) hypertension E11.9 Type 2 diabetes mellitus without complications E78.5 Hyperlipidemia, unspecified J45.909 Unspecified asthma, uncomplicated Office Visit 04/15/2018 [facility] S06.5x0A Traum subdr hem w/ o 10:49a Assfox hernandez M.D. loss of Hospitalists consciousness, init E11.9 Type 2 diabetes mellitus without complications J45.909 Unspecified asthma, uncomplicated Office Visit 04/14/2018 [facility] S06.5x0A Tra[facility] subdr hem w/ o 10:48a fox Fung M.D. loss of Hospitalists consciousness, init N39.0 Urinary tract infection, site not specified I10 Essential (primary) hypertension E11.9 Type 2 diabetes mellitus without complications Office Visit 04/13/2018 [facility] S06.5x0A Traum subdr hem w/ o 10:48a Assfox hernandez M.D. loss of Hospitalists consciousness, init R50.9 Fever, unspecified I10 Essential (primary) hypertension E11.9 Type 2 diabetes mellitus without complications Office Visit 04/12/2018 [facility] Kristy S06.5x0A [facility] subdr hem w/ o 10:47a MD Bharath loss of consciousness, init G93.40 Encephalopathy, unspecified I10 Essential (primary) hypertension E11.9 Type 2 diabetes mellitus without complications Office Visit 04/11/2018 [facility] Kristy S06.5x0A [facility] subdr hem w/ o 12:49p MD Bharath loss of consciousness, init G93.40 Encephalopathy, unspecified I10 Essential (primary) hypertension E11.9 Type 2 diabetes mellitus without complications Office 04/10/2018 [facility] Jere Hermosillo, S06.5x0A [facility] subdr hem w/o Visit 10:47a loss of consciousness, init Office 04/09/2018 [facility] Jere Hermosillo, S06.5x0A Tra[facility] subdr hem w/o Visit 10:47a loss of consciousness, init Office 04/08/2018 [facility] Jere Hermosillo, S06.5x0A Tra[facility] subdr hem w/o Visit 10:46a MD loss of consciousness, init Office 04/07/2018 Neurosurgery Melia S06.5x0A Tra[facility] subdr hem w/o Visit 1:29p Services Of Donny Vee MD loss of consciousness, init Office 07/12/2017 Orthopedic Bogdan F 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 Obstruction Hospitalists Chronic Not Class Elsewhere 473.9 Sinusitis Chronic Unspec Office Visit 03/10/2009 1:45a [facility] Fabian Vizcaino, Nusrat6 [facility] M.D. Obstruction Hospitalists Chronic Not Class Elsewhere Office Visit 03/09/2009 2:15a [facility] Fabian Vizcaino, 496 [facility] M.D. Obstruction Hospitalists Chronic Not Class Elsewhere Office Visit 03/08/2009 4:15a [facility] Fabian Vizcaino, 496 [facility] M.D. Obstruction Hospitalists Chronic Not Class Elsewhere Plan of Treatment Future Appointment(s):09/28/2018 10:00 am - Melia Vee MD at [facility]07/26/2018 - ARNOLD Navarro06.5x0D Tra[facility] subdr hem w/o loss of consciousness, subsNew Xrays:CT Brain Wo, Ordered: Follow up:RV in 2 months
--- NOTE | 2018-07-29 11:10 | ED ---
Head Injury - HPI Summary HPI Summary: 73 year old M referred from Dr. Vee to [facility] accompanied by female friend with a chief complaint of left-sided head pain s/p mechanical fall forward at 20:00 yesterday. The patient does not have pain upon exam. The patient rates the pain 0/10 in severity. Symptoms aggravated by nothing. Symptoms alleviated by nothing. Patient denies headache, dizziness, shortness of breath, chest pain, insomnia, vomiting, neck pain, blurred vision, bilateral rib pain, abdominal pain, nausea, pain in the extremities. Patient went downstairs to her basement last night to get paper towels. On her way back upstairs, patient caught her foot on the wooden platform of the stairs, fell, and hit the left side of her head. Patient was not feeling dizzy or having chest pain when she fell. Patient is not taking blood thinners. In January 2018 , patient hit the left side of her head on a rock and had 8 stitches. At the time, patient was told that she was having a "slow brain bleed." Patient saw her primary care provider in March 2018, who noticed that patient had a left- sided facial droop. In April 2018, patient had two subdural evacuations. She was admitted on 04/07/18 and discharged on 04/27/18. She had rehab while admitted and therapy at home after she was discharged. Vital signs at triage: HR 63 bpm, BP 145/73, O2 sat 97% - History Of Current Complaint Chief Complaint: EDHeadInjury Stated Complaint: FALL HEAD INJURY PER PT Hx Obtained From: Patient Mechanism Of Injury: Fall From A Standing Position Onset/Duration: Started Days Ago, Still Present Onset of Pain: Immediate Severity Currently: None Pain Intensity: 0 Pain Scale Used: 0-10 Numeric Location of Head Injury: Other: - left side Aggravating Factor(s): Other: - Nothing Alleviating Factor(s): Other: - Nothing Associated Signs And Symptoms: Negative - headache, dizziness, shortness of breath, chest pain, insomnia, vomiting, neck pain, blurred vision, bilateral rib pain, abdominal pain, nausea, pain in the extremities - Allergies/Home Medications Allergies/Adverse Reactions: Allergies Allergy/AdvReac Type Severity Reaction Status Date / Time paroxetine [From Paxil] Allergy Anaphylatic Verified 07/29/18 10:55 Shock PMH/Surg Hx/FS Hx/Imm Hx Previously Healthy: No Endocrine/Hematology History: Reports: Hx Diabetes Cardiovascular History: Reports: Hx Hypertension Respiratory History: Reports: Hx Asthma Sensory History: Reports: Hx Contacts or Glasses Denies: Hx Hearing Aid Opthamlomology History: Reports: Hx Contacts or Glasses Neurological History: Reports: Other Neuro Impairments/Disorders - subdural hematoma - Surgical History Surgery Procedure, Year, and Place: SUBDURAL EVACUATION 2019 Hx Anesthesia Reactions: No Infectious Disease History: No Infectious Disease History: Denies: Traveled Outside the [place] in Last 30 Days - Family History Known Family History: Negative: Diabetes - Social History Alcohol Use: None Hx Substance Use: No Substance Use Type: Reports: None Hx Tobacco Use: Yes Smoking Status (MU): Former Smoker Review of Systems Negative: Blurred Vision Negative: Chest Pain Negative: Shortness Of Breath Negative: Abdominal Pain, Vomiting, Nausea Musculoskeletal: Negative - Neck pain, bilateral rib pain, pain in the extremities Positive: Other - head pain Neurological: Negative - Dizziness Negative: Headache Positive: Other - NEGATIVE: Insomnia All Other Systems Reviewed And Are Negative: Yes Physical Exam - Summary Physical Exam Summary: Appearance: Well-appearing, no pain distress, well-nourished Skin: Warm, color reflects adequate perfusion, dry Head: Frontal temporal flap, no hematoma, no external bleeding Eyes: Conjunctiva clear, PERRL, EOMI ENT: Normal inspection Neck: Supple, no nodes, no JVD Respiratory: Lungs clear, normal breath sounds, no respiratory distress Cardio: RRR, No murmur, pulses normal, brisk capillary refill Abdomen: Soft, nontender Bowel sounds: Present Musculoskeletal: Strength Intact/ROM intact, no calf tenderness, no edema. Psychological: Normal Neuro: Alert, muscle tone normal, no focal deficit, normal gait GCS: 15 Triage Information Reviewed: Yes Vital Signs On Initial Exam: Initial Vitals Temp Pulse Resp BP Pulse Ox 97.6 F 63 17 145/73 97 07/29/18 10:48 07/29/18 10:48 07/29/18 10:48 07/29/18 10:48 07/29/18 10:48 Vital Signs Reviewed: Yes Diagnostics - Vital Signs Vital Signs Temp Pulse Resp BP Pulse Ox 07/29/18 10:48 97.6 F 63 17 145/73 97 - Laboratory Lab Statement: Any lab studies that have been ordered have been reviewed, and results considered in the medical decision making process. - CT Brain CT Interpretation Completed By: Radiologist Summary of CT Findings: 1. No CT evidence for new traumatic brain injury. 2. 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 3. Unchanged 2 cm soft tissue density polypoid lesion protrudes from the RIGHT nasal. cavity into the nasopharynx. ED physician has reviewed this report. Re-Evaluation - Re-Evaluation First Eval Re-Evaluation Time: 12:30 Comment: Patient was given a copy of her CT report. She is agreeable to discharge. Head Injury Course/Dx Course Of Treatment: Patient medications reviewed this visit. Nurses notes reviewed. Allergies noted. High blood pressure noted. Brain CT did not show any new changes. The patient was given you a copy of the CT of her brain. Patient has no pain. Patient will be discharged home with follow up from Dr. Fletcher, primary care provider, in 2 days, and Dr. Vee if needed. Patient was instructed to return to ED for new or worsening symptoms. Patient understands and is agreeable to discharge plan. - Diagnoses Provider Diagnoses: Accident due to mechanical fall without injury, History of subdural hematoma Discharge - Sign-Out/Discharge Documenting (check all that apply): Patient Departure - Discharge Patient Received Moderate/Deep Sedation with Procedure: No - Discharge Plan Condition: Stable Disposition: HOME Patient Education Materials: Fall Prevention for Older Adults (ED) Referrals: Kellie Fletcher DO [Primary Care Provider] - 2 Days Melia Vee MD [Medical Doctor] - If Needed Additional Instructions: We have given you a copy of the CT of your brain that was done today. It did not show any new changes from your fall last night. Please return to the emergency department for new or worsening. symptoms. - Attestation Statements Document Initiated by Scribe: Yes Documenting Scribe: Marianna Nguyen Provider For Whom Scribe is Documenting (Include Credential): Ca Kelly MD Scribe Attestation: Marianna Mike, scribed for Ca Kelly MD on 07/29/18 at 1609.
[2018-07-29 12:48] VITALS: BP 131/87
== END 2018-07-29 12:38 | disposition home or self-care (01) ==
LOC: ED 10:47
DX: R51 Headache (principal); W10.9XXA Fall (on) (from) unspecified stairs and steps, initial encounter; Y93.01 Activity, walking, marching and hiking; Y92.008 Other place in unspecified non-institutional (private) residence as the place of occurrence of the external cause; I10 Essential (primary) hypertension; E11.9 Type 2 diabetes mellitus without complications; J45.909 Unspecified asthma, uncomplicated; Z88.8 Allergy status to other drugs, medicaments and biological substances; Z87.891 Personal history of nicotine dependence
CPT/HCPCS: 70450; 99282

== ENCOUNTER 2021-07-10 18:44 | Inpatient (IN) ==
[2021-07-10 20:18] LABS: ABS Eosinophils 0.3 10^3/ul (0-0.6); ABS Lymphocytes 1.6 10^3/ul (1.0-4.8); ABS Monocytes 0.3 10^3/ul (0-0.8); ABS Neutrophils 3.2 10^3/ul (1.5-7.7); Eosinophil % 5.1 %; Hematocrit 41 % (35-47); Hemoglobin 13.5 g/dL (12.0-16.0); Lymphocyte % 29.7 %; Mean Corpuscular HGB Conc 33 g/dL (31-36); Mean Corpuscular Hemoglobin 29 pg (27-31); Mean Corpuscular Volume 88 fL (80-97); Mean Platelet Volume 8.8 fL (7.4-10.4); Platelet Count 223 10^3/uL (150-450); Red Blood Count 4.59 10^6 /uL (3.70-4.87); Red Cell Distribution Width 13 % (10-15); White Blood Count 5.4 10^3/uL (3.5-10.8)
[2021-07-10 20:36] LABS: INR 1.04 (0.86-1.15)
[2021-07-10 20:55] LABS: Albumin 4.8 g/dL (3.2-5.2); Albumin/Globulin Ratio 2.2 (1-3); Calcium 9.9 mg/dL (8.6-10.3); Globulin 2.2 g/dL (2-4); Potassium 4.3 mmol/L (3.5-5.0); Total Bilirubin 0.4 mg/dL (0.2-1.0); eGFR CKD-EPI 70.8 (>60)
[2021-07-10] MEDS ORDERED: Ondansetron 4 mg VIAL 2 MG/ML 2 ml VIAL IV PRN (21:18)
[2021-07-10] MEDS ORDERED: Albuterol HFA INHALER 8 gm MDI INH PRN (22:24)
[2021-07-10] MEDS ORDERED: Dextrose 50% Syringe 50 ml 25 GM/50 ML SYRINGE IV PUSH PRN (22:25)
[2021-07-10] MEDS ORDERED: hydrALAZINE 20 mg/ml 1 ML Vial IV IV SLOW PU PRN (22:27)
[2021-07-11] MEDS: Insulin GLARGINE 100 un/ml 10 ml VIAL SUBCUT SCH ×2 (00:20→22:36)
[2021-07-11] MEDS ORDERED: NS 0.9% 1000 ml BAG 1,000 ML IV SCH (08:15)
[2021-07-11] MEDS: PTO: Budesonide/Formote 80/4.5(NF) MDI INH SCH ×2 (08:31→21:12)
[2021-07-11] MEDS ORDERED: Lidocaine 1% w EPI 1:200,000 SDV 30 ML VIAL ONE (12:52)
[2021-07-11] MEDS ORDERED: Thrombin 5,000 UNITS 1 APPLIC KIT - topical use - TOPICAL ONE (12:52)
[2021-07-11] MEDS ORDERED: Dexamethasone IV 4 MG/ML VIAL 1 ml VIAL ONE (12:52)
[2021-07-11] MEDS ORDERED: Propofol 10 MG/ML 20 ML BTL ONE (12:52)
[2021-07-11] MEDS ORDERED: Ondansetron 4 mg VIAL 2 MG/ML 2 ml VIAL ONE ×2 (12:52→16:40)
[2021-07-11] MEDS ORDERED: ceFAZolin VIAL VIAL ONE (12:52)
[2021-07-11] MEDS ORDERED: Phenylephrine IV 10 MG/ML 1 ml VIAL ONE (12:52)
[2021-07-11] MEDS ORDERED: Gelfoam 12-7 ADSORBABL SPONGE ONE (12:53)
[2021-07-11] MEDS ORDERED: Bacitracin OINTMENT TUBE ONE (12:53)
[2021-07-11] MEDS ORDERED: Midazolam 2 mg/2 ml VIAL 1 mg/ml 2 ml VIAL (2 mg) ONE (12:55)
[2021-07-11] MEDS ORDERED: fentaNYL 100 mcg/2 ml 50 MCG/ML VIAL ONE ×2 (12:55→14:47)
[2021-07-11] MEDS ORDERED: Rocuronium 50 mg VIAL 10 mg/ml 5 ml VIAL (50 mg) ONE (12:55)
[2021-07-11] MEDS ORDERED: ceFAZolin 2 GM in NS PREMIX 2 GM/100 ML BAG IVPB ONE (13:35)
[2021-07-11] MEDS ORDERED: Desflurane 240 ML INH ONE (14:51)
[2021-07-11] MEDS ORDERED: Metoclopramide 5 MG/ML VIAL (10 mg) IV PRN (16:35)
[2021-07-11] MEDS ORDERED: Ondansetron 4 mg VIAL 2 MG/ML 2 ml VIAL IV PRN (16:35)
[2021-07-11] MEDS ORDERED: fentaNYL 100 mcg/2 ml 50 MCG/ML VIAL IV PRN (16:35)
[2021-07-11] MEDS ORDERED: Naloxone 0.4 mg VIAL 0.4 mg/ml 1 ml VIAL IV PRN (16:35)
[2021-07-11] MEDS ORDERED: HYDROcodone/ACETAMIN 5/325 mg TAB PO PRN (16:35)
[2021-07-11] MEDS ORDERED: Labetalol IV 5 MG/ML 20 ml VIAL ONE (16:49)
[2021-07-11] MEDS ORDERED: Labetalol IV 5 MG/ML 20 ml VIAL IV PUSH PRN (16:51)
[2021-07-11] MEDS ORDERED: Vancomycin per Pharmacy 1 EA NOTE FOLLOW UP SCH (17:00)
[2021-07-11] MEDS ORDERED: Vancomycin 1,000 MG in NS 0.9% 250 ml 250 ML IVPB ONE (18:00)
[2021-07-11] MEDS: cefTRIAXone 1 gm/50 mL D5W 1 GM/50 ML BAG IV SCH (18:25)
[2021-07-11] MEDS ORDERED: Metoclopramide 5 MG/ML VIAL (10 mg) IV SLOW PU ONE (18:33)
[2021-07-11] MEDS ORDERED: Acetaminophen IV 1 GM/100ML 100 ML IV ONE (18:34)
[2021-07-11] MEDS ORDERED: Iohexol 300 (CONTRAST) 10 ML SDV IV ONE (22:45)
[2021-07-12 05:08] LABS: eGFR CKD-EPI 94.1 (>60)
[2021-07-12] MEDS: PTO: Budesonide/Formote 80/4.5(NF) MDI INH SCH ×2 (08:49→21:47)
[2021-07-12] MEDS: Vancomycin 750 MG in NS 0.9% 250 ML IVPB SCH ×2 (08:56→20:10)
[2021-07-12 09:56] LABS: ABS Lymphocytes 0.9 10^3/ul (1.0-4.8); ABS Monocytes 0.5 10^3/ul (0-0.8); Hematocrit 40 % (35-47); Mean Corpuscular HGB Conc 33 g/dL (31-36); Mean Corpuscular Hemoglobin 29 pg (27-31); Mean Corpuscular Volume 88 fL (80-97); Mean Platelet Volume 8.9 fL (7.4-10.4); Nucleated Red Blood Cells % 0.1; Platelet Count 235 10^3/uL (150-450); Red Blood Count 4.49 10^6 /uL (3.70-4.87); Red Cell Distribution Width 13 % (10-15); White Blood Count 11.5 10^3/uL (3.5-10.8)
[2021-07-12 10:25] LABS: Calcium 9.4 mg/dL (8.6-10.3); Potassium 4.7 mmol/L (3.5-5.0); eGFR CKD-EPI 82.2 (>60)
[2021-07-12] MEDS ORDERED: Dextrose 50% Syringe 50 ml 25 GM/50 ML SYRINGE IV PUSH PRN (15:03)
[2021-07-12] MEDS: cefTRIAXone 1 gm/50 mL D5W 1 GM/50 ML BAG IV SCH (18:32)
[2021-07-12] MEDS: Insulin GLARGINE 100 un/ml 10 ml VIAL SUBCUT SCH (21:45)
[2021-07-13] MEDS: NS 0.9% 1,000 ML IV SCH (01:19)
[2021-07-13] MEDS ORDERED: Vancomycin Trough Check NOTE FOLLOW UP ONE (07:30)
[2021-07-13 07:50] LABS: ABS Lymphocytes 1.6 10^3/ul (1.0-4.8); ABS Monocytes 0.7 10^3/ul (0-0.8); ABS Neutrophils 6.7 10^3/ul (1.5-7.7); Eosinophil % 0.4 %; Hematocrit 39 % (35-47); Lymphocyte % 17.4 %; Mean Corpuscular HGB Conc 34 g/dL (31-36); Mean Corpuscular Hemoglobin 30 pg (27-31); Mean Corpuscular Volume 88 fL (80-97); Mean Platelet Volume 8.7 fL (7.4-10.4); Platelet Count 216 10^3/uL (150-450); Red Blood Count 4.42 10^6 /uL (3.70-4.87); Red Cell Distribution Width 14 % (10-15)
[2021-07-13 09:02] LABS: Calcium 9.3 mg/dL (8.6-10.3); Potassium 4.2 mmol/L (3.5-5.0); Vancomycin Trough 8.1 mcg/mL; eGFR CKD-EPI 92.7 (>60)
[2021-07-13] MEDS: PTO: Budesonide/Formote 80/4.5(NF) MDI INH SCH ×2 (09:11→19:56)
[2021-07-13] MEDS: Vancomycin 750 MG in NS 0.9% 250 ML IVPB SCH (09:15)
[2021-07-13] MEDS: Vancomycin 1000 MG in NS 0.9% 250 ML IVPB SCH (17:25)
[2021-07-13] MEDS: cefTRIAXone 1 gm/50 mL D5W 1 GM/50 ML BAG IV SCH (20:19)
[2021-07-13] MEDS: Insulin GLARGINE 100 un/ml 10 ml VIAL SUBCUT SCH (21:17)
[2021-07-14] MEDS: NS 0.9% 1,000 ML IV SCH (01:36)
[2021-07-14] MEDS: Vancomycin 1000 MG in NS 0.9% 250 ML IVPB SCH ×2 (05:50→19:31)
[2021-07-14] MEDS: PTO: Budesonide/Formote 80/4.5(NF) MDI INH SCH ×2 (08:29→19:31)
[2021-07-14] MEDS: cefTRIAXone 1 gm/50 mL D5W 1 GM/50 ML BAG IV SCH (21:45)
[2021-07-14] MEDS: Insulin GLARGINE 100 un/ml 10 ml VIAL SUBCUT SCH (21:53)
[2021-07-15] MEDS ORDERED: Vancomycin Trough Check NOTE FOLLOW UP ONE (05:30)
[2021-07-15] MEDS: Vancomycin 1000 MG in NS 0.9% 250 ML IVPB SCH (06:31)
[2021-07-15] MEDS: PTO: Budesonide/Formote 80/4.5(NF) MDI INH SCH (07:21)
[2021-07-15 07:46] VITALS: BP 156/67
[2021-07-15] MEDS ORDERED: Vancomycin 1,250 MG in NS 0.9% 250 ml 250 ML IVPB SCH (18:00)
[2021-07-17] MEDS ORDERED: Vancomycin Trough Check NOTE FOLLOW UP ONE (05:30)
== END 2021-07-15 12:30 | disposition home or self-care (01) | DRG 982 ==
LOC: ED 18:44 → SUATTDRO 21:18 → EDHOLD 21:18 → SSU 23:28
PROVIDERS: ADMIT Student in an Organized Health Care Education/Training Program; ATTEND Hospitalist